=== PATIENT | male | born 1950 | race Caucasian/White ===

== ENCOUNTER → 2016-10-25 13:20 | Outpatient (CLI) | payer MEDICARE, OTHER ==
[2016-10-25 13:58] LABS: INR 2.47 (0.85-1.17); PROTIME 26.9 SECONDS (11.6-15.0)
== END | disposition home or self-care (01) ==
LOC: D.LAB 10:15
PROVIDERS: Family Medicine
DX: I48.91 Unspecified atrial fibrillation (principal); I10 Essential (primary) hypertension

== ENCOUNTER → 2016-12-18 11:15 | Outpatient (CLI) | payer MEDICARE, OTHER ==
[2016-12-18 12:03] LABS: INR 2.1 (0.85-1.17); PROTIME 23.6 SECONDS (11.6-15.0)
== END | disposition home or self-care (01) ==
LOC: D.LAB 11:15 → D.US 16:00
PROVIDERS: Family Medicine
DX: R60.0 Localized edema (principal); M79.604 Pain in right leg; I82.409 Acute embolism and thrombosis of unspecified deep veins of unspecified lower extremity

== ENCOUNTER → 2018-03-20 09:57 | Outpatient (CLI) | payer MEDICARE, OTHER ==
[2018-03-20 11:08] LABS: HEMATOCRIT 42.3 % (42.0-54.0); HEMOGLOBIN 14.7 g/dL (13.5-17.5); MCH 30.9 pg (26.0-34.0); MCHC 34.8 g/dL (31.0-37.0); MCV 88.9 fL (80.0-100.0); MEAN PLATELET VOLUME 11.2 fL (7.4-10.4); PLATELET COUNT 111 10x3/uL (130-400); RBC 4.76 10x6/uL (4.20-6.10); RDW 14.6 % (11.5-14.5); WBC 4.6 10x3/uL (4.8-10.8)
[2018-03-20 11:27] LABS: INR 2.59 (0.85-1.17); PROTIME 27.1 SECONDS (11.6-15.0)
[2018-03-20 11:35] LABS: ANION GAP 9.8 mmol/L (8-16); BILIRUBIN - TOTAL 0.95 mg/dL (0.2-1.3); CALCIUM 9.8 mg/dL (8.5-10.1); CARBON DIOXIDE 29.9 mmol/L (21.0-32.0); CHOL - HDL RATIO 5.7 ratio (2.3-4.9); CREATININE - SERUM 1.3 mg/dL (0.6-1.3); LDL-HDL RATIO 3.9 ratio (1.5-3.5); POTASSIUM - SERUM 3.7 mmol/L (3.5-5.1); PROTEIN - SERUM 6.6 g/dL (6.4-8.2); THYROID STIMULATING HORMONE 0.25 uIU/mL (0.36-3.74)
[2018-03-20 11:51] LABS: APPEARANCE CLEAR (CLEAR); BILIRUBIN NEGATIVE (NEGATIVE); COLOR YELLOW (YELLOW); GLUCOSE NEGATIVE (NEGATIVE); KETONE NEGATIVE (NEGATIVE); NITRITE NEGATIVE (NEGATIVE); PROTEIN NEGATIVE (NEGATIVE)
[2018-03-20 11:52] LABS: BACTERIA FEW /hpf (NONE SEEN); EPITHELIAL CELLS OCC /hpf (0-5); MUCUS <1+ /lpf (NONE SEEN); RED CELLS - URINE 0-5 /hpf (0-5)
[2018-03-20 12:57] LABS: EOSINOPHILS 2 % (0-7); LYMPHOCYTES 48 % (15-50); MONOCYTES 8 % (2-11); NEUTROPHILS 41 % (40-80); PLATELET ESTIMATE DECREASED
== END | disposition home or self-care (01) ==
LOC: D.RAD 08:00 → D.LAB 09:57 → D.RAD 09:57
PROVIDERS: Family Medicine
DX: J44.9 Chronic obstructive pulmonary disease, unspecified (principal); F17.200 Nicotine dependence, unspecified, uncomplicated; I10 Essential (primary) hypertension

== ENCOUNTER 2019-02-13 23:34 | Emergency (ER) | payer MEDICARE, OTHER ==
[2019-02-13 23:52] VITALS: BMI 36.6
[2019-02-13] MEDS ORDERED: COUMADIN7.5 MG PO (23:54)
[2019-02-13] MEDS ORDERED: DIOVAN320 MG PO (23:55)
[2019-02-14 01:20] VITALS: BP 188/112
[2019-04-30 11:24] VITALS: BMI 38.6
== END 2019-02-14 01:35 | disposition home or self-care (01) ==
LOC: D.ER 23:34
DX: M70.21 Olecranon bursitis, right elbow (principal); Y93.89 Activity, other specified

== ENCOUNTER 2019-03-04 23:16 | Inpatient (IN) | payer MEDICARE, OTHER ==
[~2019-03-04] VITALS: Ht 193 cm; Wt 140.6 kg
[~2019-03-04 23:16] MED LIST: COUMADIN7.5 MG PO; DIOVAN320 MG PO
[2019-03-05 00:34] LABS: BASOPHILS 0.1 % (0-2); EOSINOPHILS 0 % (0-7); HEMATOCRIT 46.1 % (42.0-54.0); HEMOGLOBIN 16.3 g/dL (13.5-17.5); IMMATURE GRANULOCYTES 0.3 % (0-5); LYMPHOCYTES 6.8 % (15-50); MCH 31.5 pg (26.0-34.0); MCHC 35.4 g/dL (31.0-37.0); MEAN PLATELET VOLUME 11.4 fL (7.4-10.4); MONOCYTES 6.9 % (2-11); NEUTROPHILS 85.9 % (40-80); PLATELET COUNT 101 10x3/uL (130-400); RBC 5.18 10x6/uL (4.20-6.10); RDW 15.1 % (11.5-14.5); WBC 11.5 10x3/uL (4.8-10.8)
[2019-03-05 00:43] LABS: ANION GAP 15.1 mmol/L (8-16); BILIRUBIN - TOTAL 1.2 mg/dL (0.2-1.3); CALCIUM 8.3 mg/dL (8.5-10.1); CARBON DIOXIDE 25.2 mmol/L (21.0-32.0); CREATININE - SERUM 3.7 mg/dL (0.6-1.3); POTASSIUM - SERUM 3.3 mmol/L (3.5-5.1); PROTEIN - SERUM 6.8 g/dL (6.4-8.2)
[2019-03-05 00:53] VITALS: BP 107/63
[2019-03-05 01:00] LABS: TROPONIN-I 0.188 ng/mL (0.000-0.060)
[2019-03-05 02:27] VITALS: BP 110/52
[2019-03-05] MEDS ORDERED: AMBIEN10 MG PO (04:35)
[2019-03-05] MEDS ORDERED: ANORO ELLIPTA1 EACH INH (04:36)
[2019-03-05] MEDS ORDERED: LOPRESSOR25 MG PO (04:37)
--- NOTE | 2019-03-05 04:45 | NUR ---
RECEIVED FROM ER VIA [facility].ALERT,ORIENTED.COMPLAINTS OF DIAHRREA.IV TO RAC INTACT WITHOUT REDNESSS OR EDEMA NOTED. ORIENTED TO ROOM. CL IN REACH. AT BEDSIDE.
--- NOTE | 2019-03-05 08:14 | NUR ---
I have reviewed this patient and I concur with the Shift Assessment completed by the Licensed Practical Nurse today this shift.
[2019-03-05 08:29] VITALS: BP 124/57
--- NOTE | 2019-03-05 09:51 | NUR ---
PT DC X2 IV THIS AM WITH TIP INTACT. CONTINUES TO GET UP OUT OF BED. FALL PRECAUTIONS IN PLACE. CONFUSED. NO S/S OF ACUTE DISTRESS. CL IN PLACE.
--- NOTE | 2019-03-05 10:16 | NUR ---
CALLED FOR TELE. NO TELE PER [facility]. "YOU ARE 4TH IN LINE". CALLED DR BISHOP ABOUT PT CONTINUE TO GET OOB AND PULLED OUT IV X 2. BUN AND CREATNINE ELEVATED. ANURIA. IN ER PT A FIB WITH RVR. CARDIOLOGY AND RENAL CONSULT. TO FOR IMODIUM AND VANC. ECHO TO BE DONE. TRANSFER PT TO PCU SOON BED IS OPEN. CALLED AND SPOKE WITH ROGE CHAPPELL.
[2019-03-05 12:13] VITALS: BP 124/57; BMI 37.8
[2019-03-05 13:30] VITALS: Ht 193 cm; Wt 140.6 kg
[2019-03-05 16:32] VITALS: BP 126/58
[2019-03-05 17:47] LABS: ANION GAP 13.9 mmol/L (8-16); CALCIUM 7.5 mg/dL (8.5-10.1); CARBON DIOXIDE 23.6 mmol/L (21.0-32.0); POTASSIUM - SERUM 3.5 mmol/L (3.5-5.1)
[2019-03-05 17:55] LABS: CREATININE - SERUM 4.7 mg/dL (0.6-1.3)
--- NOTE | 2019-03-05 19:38 | NUR ---
PT RESTING IN BED. AT BEDSIDE NO S/S OF ACUTE DISTRESS. CL IN PLACE.
--- NOTE | 2019-03-05 21:36 | NUR ---
LYING QUEITLY NO DISTRESS NOTED. RESP UNLABORED. IV INFUSING TO RFA WITHOUT REDNESS OR EDEMA NOTED. CL IN REACH
[2019-03-05 21:41] VITALS: BP 118/58
--- NOTE | 2019-03-06 00:26 | NUR ---
I have reviewed this patient and I concur with the Shift Assessment completed by the Licensed Practical Nurse today this shift.
[2019-03-06 01:15] VITALS: BP 112/61
[2019-03-06 04:51] VITALS: BP 114/81
[2019-03-06 05:17] LABS: ALBUMIN 2.7 g/dL (3.4-5.0); ANION GAP 15.6 mmol/L (8-16); BILIRUBIN - TOTAL 0.83 mg/dL (0.2-1.3); CALCIUM 7.2 mg/dL (8.5-10.1); CARBON DIOXIDE 21.6 mmol/L (21.0-32.0); CHOL - HDL RATIO 5.4 ratio (2.3-4.9); CREATININE - SERUM 4.3 mg/dL (0.6-1.3); LDL-HDL RATIO 3.4 ratio (1.5-3.5); MAGNESIUM - SERUM 1.1 mg/dL (1.8-2.4); POTASSIUM - SERUM 3.2 mmol/L (3.5-5.1); PROTEIN - SERUM 5.8 g/dL (6.4-8.2); THYROID STIMULATING HORMONE 0.2 uIU/mL (0.36-3.74)
[2019-03-06 05:45] LABS: BASOPHILS 0 % (0-2); EOSINOPHILS 0 % (0-7); HEMATOCRIT 41.6 % (42.0-54.0); HEMOGLOBIN 14.9 g/dL (13.5-17.5); IMMATURE GRANULOCYTES 0.5 % (0-5); LYMPHOCYTES 5.4 % (15-50); MCHC 35.8 g/dL (31.0-37.0); MEAN PLATELET VOLUME 12.3 fL (7.4-10.4); MONOCYTES 14.8 % (2-11); NEUTROPHILS 79.3 % (40-80); RDW 15.1 % (11.5-14.5)
[2019-03-06 05:46] LABS: MCV 86.7 fL (80.0-100.0); PLATELET COUNT 79 10x3/uL (130-400); WBC 6.5 10x3/uL (4.8-10.8)
--- NOTE | 2019-03-06 07:20 | NUR ---
PT RESTING IN BED, ALERT AND ORIENTED. UP AD PRASANNA. NO C/O PAIN. NO S/S OF ACUTE DISTRESS NOTED. PT ON ELECTROLYTE PROTOCOL. PT ON TELEMETRY CONTROLLED AFIB WITH FREQUENT PVC'S, 89. PT POTASSIUM AND MAGNESIUM LOW THIS AM, K+ 3.5 AND MAG 1.1. IV TO LEFT FOREARM, NS INFUSING @ 125ML/HR. SITE PATENT WITHOUT REDNESS OR SWELLING. PT DENIES ANYTHING FURTHER AT THIS TIME. CALL LIGHT IN REACH. WILL CONTINUE TO MONITOR.
[2019-03-06 07:30] LABS: PLATELET ESTIMATE DECREASED
[2019-03-06 10:01] VITALS: BP 120/62
[2019-03-06 12:43] VITALS: BP 112/52
--- NOTE | 2019-03-06 18:04 | NUR ---
PT RESTING IN BED, ALERT AND ORIENTED. NO C/O PAIN. NO S/S OF ACUTE DISTRESS NOTED. AT BEDSIDE. PT DENIES ANYTHING FURTHER AT THIS TIME. CALL LIGHT IN REACH. WILL CONTINUE TO MONITOR.
[2019-03-06 18:10] LABS: POTASSIUM - SERUM 3.5 mmol/L (3.5-5.1)
[2019-03-06 18:12] LABS: MAGNESIUM - SERUM 1.9 mg/dL (1.8-2.4)
--- NOTE | 2019-03-06 18:47 | NUR ---
PT IS WITHOUT NEEDS AT PRESENT. FAMILY AT BEDSIDE.
[2019-03-06 19:09] VITALS: BP 103/53
[2019-03-06 20:00] VITALS: BP 131/66
--- NOTE | 2019-03-06 21:10 | NUR ---
EYES CLOSED RESP EVEN AND UNLABORED. NO DISTRESS NOTED. IV INFUSING TO RFA WIHTOUT REDNESS OR EDEMA NOTED. CL IN REACH
[2019-03-07] VITALS: BP 132/57; BP 139/79
[2019-03-07 04:00] VITALS: BP 137/66
[2019-03-07 04:24] LABS: ALBUMIN 2.7 g/dL (3.4-5.0); ANION GAP 11.7 mmol/L (8-16); BILIRUBIN - TOTAL 0.86 mg/dL (0.2-1.3); CALCIUM 7.4 mg/dL (8.5-10.1); CARBON DIOXIDE 22.8 mmol/L (21.0-32.0); CREATININE - SERUM 3.6 mg/dL (0.6-1.3); MAGNESIUM - SERUM 1.8 mg/dL (1.8-2.4); PHOSPHOROUS 2.9 mg/dL (2.5-4.9); POTASSIUM - SERUM 3.5 mmol/L (3.5-5.1); PROTEIN - SERUM 5.9 g/dL (6.4-8.2)
--- NOTE | 2019-03-07 07:40 | NUR ---
RCVD IN BED, SHOWS NO S/S OF ANY ACUTE DISTRESS. ABLE TO VOICE NEEDS. WILL NOTE ANY CHANGE.
[2019-03-07 08:30] VITALS: BP 128/84
[2019-03-07 10:31] LABS: APPEARANCE CLEAR (CLEAR); BILIRUBIN NEGATIVE (NEGATIVE); COLOR YELLOW (YELLOW); EPITHELIAL CELLS RARE /hpf (0-5); GLUCOSE NEGATIVE (NEGATIVE); KETONE NEGATIVE (NEGATIVE); NITRITE NEGATIVE (NEGATIVE); PROTEIN TRACE mg/dL (NEGATIVE); RED CELLS - URINE OCC /hpf (0-5); SPECIFIC GRAVITY 1.015 (1.005-1.020); UROBILINOGEN NORMAL (NORMAL); WHITE CELLS - URINE OCC /hpf (0-5)
[2019-03-07 12:32] VITALS: BP 99/70
--- NOTE | 2019-03-07 13:12 | NUR ---
Nutrition Follow Up: Chart reviewed. Pt continues on clear liquid diet. Per chart pt with increased amounts of diarrhea. Labs reviewed. Meds noted including Imodium, Questran, Flagyl. Rec advancing VIKA as medically feasible. RD following.
[2019-03-07 16:51] VITALS: BP 100/71
--- NOTE | 2019-03-07 18:37 | NUR ---
PT RESTING IN BED, ALERT AND ORIENTED. AT BEDSIDE. NO C/O PAIN. NO S/S OF ACUTE DISTRESS NOTED. PT DENIES ANYTHING FURTHER AT THIS TIME. CALL LIGHT IN REACH. WILL CONTINUE TO MONITOR.
[2019-03-07 20:00] VITALS: BP 98/45
--- NOTE | 2019-03-07 23:30 | NUR ---
A&O X 4, LUNG SOUNDS CLEAR, BILATERALLY. OCCASIONAL COUGH NOTED, NON-PRODUCTIVE. BOWEL SOUNDS ACTIVE X 4. PT HAVING FREQUENT LOOSE BOWEL MOVEMENTS, WILL CONTINUE TO MONITOR.
[2019-03-08] VITALS: BP 135/80; BP 98/46
--- NOTE | 2019-03-08 03:00 | NUR ---
I have reviewed this patient and I concur with the Shift Assessment completed by the Licensed Practical Nurse today this shift.
[2019-03-08 07:28] LABS: BASOPHILS 0.1 % (0-2); EOSINOPHILS 0.1 % (0-7); HEMATOCRIT 39.7 % (42.0-54.0); HEMOGLOBIN 14.4 g/dL (13.5-17.5); IMMATURE GRANULOCYTES 0.9 % (0-5); LYMPHOCYTES 19.9 % (15-50); MCH 31.2 pg (26.0-34.0); MCHC 36.3 g/dL (31.0-37.0); MCV 86.1 fL (80.0-100.0); MEAN PLATELET VOLUME 11.4 fL (7.4-10.4); MONOCYTES 14.7 % (2-11); NEUTROPHILS 64.3 % (40-80); PLATELET COUNT 85 10x3/uL (130-400); RBC 4.61 10x6/uL (4.20-6.10); RDW 15.1 % (11.5-14.5); WBC 6.9 10x3/uL (4.8-10.8)
[2019-03-08 07:48] LABS: ALBUMIN 2.5 g/dL (3.4-5.0); ANION GAP 15.4 mmol/L (8-16); BILIRUBIN - TOTAL 0.92 mg/dL (0.2-1.3); CALCIUM 7.1 mg/dL (8.5-10.1); CARBON DIOXIDE 18.3 mmol/L (21.0-32.0); CREATININE - SERUM 4.5 mg/dL (0.6-1.3); MAGNESIUM - SERUM 1.7 mg/dL (1.8-2.4); POTASSIUM - SERUM 3.7 mmol/L (3.5-5.1); PROTEIN - SERUM 5.5 g/dL (6.4-8.2)
[2019-03-08 07:55] LABS: PHOSPHOROUS 3.9 mg/dL (2.5-4.9)
[2019-03-08 07:58] LABS: PLATELET ESTIMATE DECREASED
[2019-03-08 08:26] VITALS: BP 99/67
[2019-03-08 09:09] LABS: HEPATITIS C ANTIBODY 0.1 S/CO RAT (0.0-0.9)
[2019-03-08 12:46] VITALS: BP 112/69
--- NOTE | 2019-03-08 13:00 | NUR ---
PT AT BEDSIDE BEING VERY ARGUMENTIVE WITH PT AND SNATCHING HIS GOWN OFF AND TELLING HIM THAT HE NEEDS TO DO THIS AND TO DO THAT. PT STATING "I DONT CARE WHAT YOU SAY Y'ALL SAY I AM NOT FEEING WELL AND I AM NOT GETTING BACK UP." AND C/L REMAIN IN REACH AT BEDSIDE.
[2019-03-08 16:18] LABS: ANION GAP 15.2 mmol/L (8-16); CALCIUM 7.4 mg/dL (8.5-10.1); CARBON DIOXIDE 19.4 mmol/L (21.0-32.0); CREATININE - SERUM 4.9 mg/dL (0.6-1.3); POTASSIUM - SERUM 3.6 mmol/L (3.5-5.1)
--- NOTE | 2019-03-08 16:29 | NUR ---
I have reviewed this patient and I concur with the Shift Assessment completed by the Licensed Practical Nurse today this shift.
--- NOTE | 2019-03-08 16:38 | NUR ---
ATTEMPTED TO RESITE PT IV X2 UNSUCCESSFUL, PT STATED HE JUST WANTS TO BE LEFT ALONE TO SLEEP AT THIS TIME. ADVISED WILL TRY AGAIN LATER, CL IN REACH, BED IN LOWEST POSITION
[2019-03-08 17:52] VITALS: BP 99/65
--- NOTE | 2019-03-08 19:00 | NUR ---
REPORT RECEIVED AND CARE OF PT ASSUMED. UP IN ROOM GOING TO RESTROOM....INCONTINENT OF BM WITH STOOL ON BED PADS, FLOOR AND ALL OVER TOILET. CHANGED ALL BEDDING AND CLEANED FLOOR AND RESTROOM. POSITIONED PT IN BED FOR COMFORT. WILL MONITOR FOR NEEDS.
[2019-03-08 20:00] VITALS: BP 111/63
--- NOTE | 2019-03-08 20:30 | NUR ---
PT'S CALLED DR BISHOP TO REQUEST QUESTRAN TO BE GIVEN MIXED WITH OINTMENT FOR REDNESS ON BOTTOM. ALSO GAVE THE PHONE TO ME TO ASK FOR A PICC LINE OR MIDLINE PT DOES NOT WANT TO BE STUCK ANYMORE TO ATTEMPT TO GET PERIPHERAL IV. ORDER PLACED AND CALLED SCOTT WALL IN ER TO ADVISE OF ORDER FOR ADVANCED VASCULAR ACCESS.
--- NOTE | 2019-03-08 21:04 | NUR ---
HS MEDICATIONS GIVEN. WILL MONITOR FOR NEEDS.
--- NOTE | 2019-03-08 23:50 | NUR ---
CALLED SKINNING MACHINE FEEDER AND [facility] RN / ER CHARGE TO ADVISE THAT PT'S SPOUSE IS VERY UPSET THAT PT DOESN'T HAVE IV ACCESS YET. SKINNING MACHINE FEEDER TO COME AND SPEAK TO HER. VASCULAR ACCESS NURSE SAID THAT SHE IS CHARGE IN ER AT THIS TIME AND NOT ABLE TO COME ASSIST WITH IV ACCESS.
[2019-03-09] VITALS: BP 100/50
--- NOTE | 2019-03-09 00:15 | NUR ---
20 GUAGE PLACED TO RIGHT FA BY SCOTT ESPANA / ICU NURSE. IV FLUIDS RE-STARTED PER ORDER. PLACED ARMBOARD ON RIGHT FA AND WRAPPED WITH KERLEX.
--- NOTE | 2019-03-09 00:30 | NUR ---
SCOTT RICHMOND / DEAF AND HARD OF HEARING TEACHER HERE TALKING WITH SPOUSE.
--- NOTE | 2019-03-09 01:23 | NUR ---
RECEIVED ORDER FROM DR BISHOP TO PLACE PHYSICIAN CONSULT FOR DR BROOKE TO ADDRESS LOW PLATELET COUNT.
[2019-03-09 04:00] VITALS: BP 97/56
[2019-03-09 06:52] LABS: BASOPHILS 0.2 % (0-2); EOSINOPHILS 0 % (0-7); HEMATOCRIT 40.4 % (42.0-54.0); HEMOGLOBIN 14.8 g/dL (13.5-17.5); IMMATURE GRANULOCYTES 0.9 % (0-5); LYMPHOCYTES 15.6 % (15-50); MCH 31.3 pg (26.0-34.0); MCHC 36.6 g/dL (31.0-37.0); MCV 85.4 fL (80.0-100.0); MEAN PLATELET VOLUME 11.5 fL (7.4-10.4); MONOCYTES 5.5 % (2-11); NEUTROPHILS 77.8 % (40-80); PLATELET COUNT 98 10x3/uL (130-400); RBC 4.73 10x6/uL (4.20-6.10); RDW 15.1 % (11.5-14.5); WBC 6.6 10x3/uL (4.8-10.8)
[2019-03-09 06:57] LABS: ALBUMIN 2.6 g/dL (3.4-5.0); ANION GAP 16.7 mmol/L (8-16); BILIRUBIN - TOTAL 1.12 mg/dL (0.2-1.3); CALCIUM 7.3 mg/dL (8.5-10.1); CARBON DIOXIDE 17.1 mmol/L (21.0-32.0); CREATININE - SERUM 4.2 mg/dL (0.6-1.3); MAGNESIUM - SERUM 1.5 mg/dL (1.8-2.4); PHOSPHOROUS 3.2 mg/dL (2.5-4.9); POTASSIUM - SERUM 3.8 mmol/L (3.5-5.1)
[2019-03-09 09:10] VITALS: BP 100/47
--- NOTE | 2019-03-09 09:58 | NUR ---
SPOKE WITH CHRIST FROM [facility] IN REGARDS TO RESULTS FROM STOOL/URINE. NO NEED FOR CONTACT ISOLATION. INSTRUCTED STAFF TO MAINTAIN MEDICAL ASEPSIS. GOOD HAND HYGIENE.
--- NOTE | 2019-03-09 11:43 | NUR ---
PT IS DISORIENTED TO PLACE, TIME, AND SITUATION, LOW GRADE FEVER OF 99.4, HYPOTENSIVE 92/47 TAKEN TWICE, HR 88, POSTITIVE BLOOD CULTURE FOR GRAM NEGATIVE RODS.
[2019-03-09 12:12] VITALS: BP 92/47
[2019-03-09 16:31] VITALS: BP 98/61
--- NOTE | 2019-03-09 19:00 | NUR ---
REPORT RECEIVED AND CARE OF PT ASSUMED. PT LYING IN SUPINE POSITION ARGUING WITH SPOUSE AT THIS TIME....YELLING AND CUSSING. TELEMETRY IN PLACE AND READING CONT A-FIB AT THIS ASSESSMENT. IV TO RIGHT FA PATENT WITH D5W W/ 20 KCL + SODIUM BICARB INFUSING AT 175 ML/HR. BUTTOCKS REDDENED WITH OINTMENT APPLIED. WILL MONITOR FOR NEEDS.
--- NOTE | 2019-03-09 19:55 | NUR ---
HS MEDICATIONS GIVEN. ASSISTED PT UP TO USE RESTROOM. CLEANED RESTROOM PT SPRAYS BM ALL OVER COMMODE AND FLOOR. POSITIONED BACK IN BED FOR COMFORT.
[2019-03-09 20:44] VITALS: BP 114/56
--- NOTE | 2019-03-10 00:23 | NUR ---
ASSISTED PT UP TO USE RESTROOM. REPLACED GOWN PT WALKING AROUND ROOM NAKED. REPLACED ALL TELEMETRY PADS. POSITIONED BACK IN BED FOR COMFORT.
[2019-03-10 01:27] VITALS: BP 134/69
[2019-03-10 04:31] LABS: BASOPHILS 0.1 % (0-2); EOSINOPHILS 0.1 % (0-7); HEMATOCRIT 36.2 % (42.0-54.0); HEMOGLOBIN 13.5 g/dL (13.5-17.5); IMMATURE GRANULOCYTES 0.6 % (0-5); LYMPHOCYTES 10.4 % (15-50); MCHC 37.3 g/dL (31.0-37.0); MEAN PLATELET VOLUME 11.3 fL (7.4-10.4); MONOCYTES 10.8 % (2-11); PLATELET COUNT 102 10x3/uL (130-400); RBC 4.36 10x6/uL (4.20-6.10); RDW 14.7 % (11.5-14.5)
[2019-03-10 04:34] LABS: WBC 11.5 10x3/uL (4.8-10.8)
[2019-03-10 04:39] LABS: INR 2.68 (0.85-1.17); PROTIME 27.8 SECONDS (11.6-15.0)
[2019-03-10 04:50] LABS: ALBUMIN 2.3 g/dL (3.4-5.0); BILIRUBIN - TOTAL 2.6 mg/dL (0.2-1.3); MAGNESIUM - SERUM 1.2 mg/dL (1.8-2.4); PROTEIN - SERUM 5.3 g/dL (6.4-8.2)
[2019-03-10 04:51] LABS: ANION GAP 13.6 mmol/L (8-16); CARBON DIOXIDE 21.5 mmol/L (21.0-32.0); CREATININE - SERUM 2.8 mg/dL (0.6-1.3); PHOSPHOROUS 2.1 mg/dL (2.5-4.9); POTASSIUM - SERUM 3.1 mmol/L (3.5-5.1)
[2019-03-10 04:52] LABS: CALCIUM 6.7 mg/dL (8.5-10.1)
--- NOTE | 2019-03-10 05:15 | NUR ---
CRITICAL LAB CALLED: CALCIUM 6.7 ( ALBUMIN 2.3 ) MAKING CORRECTED CALCIUM 8.1 THIS AM.
[2019-03-10 05:42] VITALS: BP 130/85
--- NOTE | 2019-03-10 06:31 | NUR ---
POTASSIUM LEVEL 3.1 REQUIRING COVERAGE WITH 40 MEQ PO PER THE ELECTROLYTE PROTOCOL. WILL RE-CHECK IN 4 HOURS. PHOS LEVEL 2.1 REQUIRING COVERAGE WITH 1 PKT PHOSPHORUS AND REPEAT EVERY 4 HOURS FOR 3 DOSES....REPORTED GIVEN TO DAY SHIFT RN. MAG LEVEL 1.2 REQUIRING COVERAGE WITH 400 MG PO AND REPEAT Q4HRS X4 DOSES TOTAL....REPORTED TO DAY SHIFT RN.
--- NOTE | 2019-03-10 07:25 | NUR ---
PT SITTING UP IN CHAIR AT BEDSIDE. RESTLESS AND AGITATED. PT REPORTS PAIN IN BACK AND UNABLE TO GET COMFORTABLE IN BED. FOAM MATTRESS APPLIED TO BED TO ASSIST WITH COMFORT. PT REPORTS PAIN 7/10 AT THIS TIME. IV TO RIGHT FOREARM WITH D5W W/20KCL SODIUM BICAR @ 175ML/HR INFUSING VIA PUMP. TELEMETRY IN PLACE. PT CONTINUES TO VOICE EPISODES OF DIARRHEA. FAMILY AT BEDSIDE. DENIES FURTHER NEEDS AT THIS TIME. CL WITHIN REACH. ENCOURAGED TO CALL WITH NEEDS. CONTINUE POC
--- NOTE | 2019-03-10 08:26 | NUR ---
PT CONTINUES TO PRESENT IRRITABLE AND AGITATED, REPORTING PAIN 7/10 AND INABILITY TO GET COMFORTABLE. ULTRAM ADMINISTERED AT THIS TIME.
[2019-03-10 08:43] VITALS: BP 132/73
--- NOTE | 2019-03-10 09:15 | NUR ---
PT RESTING IN BED. LESSENED IRRITABILITY NOTED. HE REPORTS "I DON'T WANT TO BRAG OR TALK ABOUT BUT I HAVE LAID IN ONE SPOT RIGHT NOW FOR LONGER THAN 5 MINUTES." HE THEN RATES PAIN AT THIS TIME 01/03. DENIES FURTHER NEEDS AT THIS TIME. ENCOURAGED TO CALL WITH NEEDS.
--- NOTE | 2019-03-10 10:47 | NUR ---
PT SITTING UP ON SIDE OF BED WITH FAMILY AT BEDSIDE. PT IS RESTLESS WITH COMPLAINTS OF BACK PAIN AND INABILITY OF GETTING COMFORTABLE IN BED. EDUCATED PT REGARDING PAIN MEDICATION ORDER. PT VOICES UNDERSTANDING. DENIES FURTHER NEEDS AT THIS TIME. CL WITHIN REACH. ENCOURAGED TO CALL WITH NEEDS.
--- NOTE | 2019-03-10 14:11 | MORECARE ---
CASE MANAGEMENT DISCHARGE SUMMARY PATIENT: EDGARDO ANTHONY UNIT: [id number] ADM DATE: 03/05/19 AGE: 68 : 46 SEX: M ROOM/BED: D.2208 AUTHOR: KAREEN RICHARD PHYSICIAN: REFERRING PHYSICIAN: MICHELE BISHOP MD DATE OF SERVICE: 03/10/19 Discharge Plan Patient Name: EDGARDO ANTHONY [facility] : 1950 Planned Disposition: Anticipated Discharge Date: Discharge Date: Expected LOS: Initial Reviewer: [email or web address] Initial Review Date: 03/05/2019 Generated: 03/10/19 3:11 pm Comments DCP- Discharge Planning Updated by [email or web address]: Carolyn Castillo on 03/10/19 1:[address] attempted to see patient, family at bedside asked if I could come back. Patient was sleeping and family did not want me to wake him. CM will attempt to see at a later time Patient Name: EDGARDO ANTHONY Page [id number] at 1411 All edits/amendments must be made on the electronic document DICTATION DATE: 03/10/191409 DOOR CLOSER MECHANIC: ROSALINDA 03/10/191409 RPT#: [id number] DC DATE: STATUS: ADM IN [facility] [address] [place] [address] END OF REPORT
[2019-03-10 17:15] VITALS: BP 110/55
--- NOTE | 2019-03-10 18:01 | NUR ---
PATIENT FAMILY REQUESTING SOME CALMOSEPTINE OR MEDICATED OINTMENT FOR HIS BUTTOCK AND COCCYX.
--- NOTE | 2019-03-10 18:38 | CN ---
PATIENT NAME:EDGARDO ANTHONY MEDICAL RECORD: [id number] : 46 LOCATION:D.MS [id number] ADMIT DATE: 03/05/19 ACCOUNT: [id number] CONSULTING PHYSICIAN: BRENDA JETT MD REFERRING PHYSICIAN: MICHELE BISHOP MD DATE OF CONSULTATION: 03/05/2019 DIAGNOSES: 1. Atrial fibrillation with rapid ventricular response. 2. Chronic atrial fibrillation. 3. Hypertension. 4. Nausea and vomiting. 5. Acute renal failure. HISTORY OF PRESENT ILLNESS: Mr. Anthony comes in with nausea, vomiting, GI symptomatology, found to have efxnp-zz-trwjwji renal insufficiency. He is in atrial fibrillation. His Lopressor has been on hold. His heart rate is in the 110 range. The atrial fibrillation is chronic. He is as well on Diovan for blood pressure. His blood pressure has been running in the 100 range. PHYSICAL EXAMINATION: GENERAL APPEARANCE: Well-nourished, well-developed, appears stated age. Level of distress, comfortable. PSYCHIATRIC: Mental status, alert, normal affect. Orientation, oriented to time, place and person. EYES: Lids and conjunctiva, noninjected. No discharge, no pallor. ENT: Lips, teeth, gums, normal dentition. Oropharynx, no cyanosis, no pallor. NECK: Carotid arteries, bilateral normal upstroke, no bruits, no thrills. JUGULAR VEINS: No jugular venous pressure or distention. CERVICAL LYMPH NODES: Nontender, nonenlarged. THYROID: Not enlarged. Nontender. No nodules. LUNGS: Respiratory effort, unlabored. CHEST: Normal curvature. No thoracic deformity. No chest wall tenderness. Percussion, resonant. Auscultation, clear. No wheezes, no rales, no rhonchi. CARDIOVASCULAR: Precordial exam, nondisplaced. No heaves or pericardial thrills. Rate and rhythm, regular. Heart sounds, normal S1, normal S2. No S3, no gallop, no rub. Systolic murmur, not heard. Diastolic murmur, not heard. EXTREMITIES: No cyanosis, no edema. Peripheral pulses, full and equal in all extremities, except as noted. No bruits appreciated. ABDOMEN: Soft, nondistended. Normal aorta. No bruit. Nontender. No masses. Liver, nontender, no hepatomegaly. Spleen, nontender, no splenomegaly. MUSCULOSKELETAL: No joint tenderness. No joint swelling. No erythema. NEUROLOGICAL: Normal gait, normal strength, normal tone. SKIN: Warm and dry. OVERALL IMPRESSION: Atrial fibrillation, this is chronic. We would restart his metoprolol. He is being hydrated. Hopefully, his BUN and creatinine will return to normal with hydration and metoprolol can be continued at the same dose. If he becomes bradycardic, we will hold the metoprolol and/or cut the dose back. At this time, no other cardiac workup or treatment is necessary. TRANSINT:[id number] Voice Confirmation ID: [id number] DOCUMENT ID: [id number] CONSULT REPORT [id number] EDGARDO ANTHONY, BRENDA GARRETT at 1838 CC: [id number] DICTATION DATE: 03/05/19 1149 LOAN MANAGER: 03/05/19 1249 ADM IN [facility] [place] [id number] [place] [address]
--- NOTE | 2019-03-10 18:38 | EC ---
PATIENT:EDGARDO ANTHONY DATE OF SERVICE: 03/05/19 SEX: M MEDICAL RECORD: [id number] DATE OF : [birth year] LOCATION:D.MS [place] AGE OF PATIENT: 68 ADMISSION DATE: 03/05/19 REFERRING PHYSICIAN: INTERPRETING PHYSICIAN: BRENDA CATHERINE MD ECHOCARDIOGRAM REPORT ECHO CHARGES 4 ECHO COMPLETE Date: 03/05/19 CLINICAL DIAGNOSIS: AFIB WITH RVR ECHOCARDIOGRAPHIC MEASUREMENTS (adult normal given) AC root (d.<3.7cm) 2.9 cm LV Septum d (<1.2 cm> 1.7 cm Valve Excursion 1.5 cm LV Septum (systole) 1.9 cm Left Atria (s.<4.0cm> 5.1 cm LVPW d(<1.2cm) 1.7 cm RV (d.<2.3cm) 2.1 cm LVPW (sytole) 1.8 cm LV diastole(<5.6CM) 4.2 cm MV E-F(>70mm/sec) cm LV systole 2.8 cm LVOT Diameter 2.1 cm MV exc.(>10mm) 1.2 cm Est.ejection fraction (50-75%) % DOPPLER: LVIT cm/sec A 40.0 cm/sec E 57.0 cm/sec LA cm/sec RVSP 49 mmHg LVOT 94 cm/sec AOP1/2T m/s Asc. Ao 128 cm/sec RVOT 97 cm/sec RA cm/sec PA 126 cm/sec AV Gradient Peak 6.59 mmHg AV Mean 3.71 mmHg AV Area 2.4 cm MV Gradient Peak 4.30 mmHg MV Mean 1.61 mmHg MV Area cm COMMENTS: Heel Seat Sander: Denise WORRELL Quality Rep: 1 Dr. Catherine TAPE# PACS Pericardial Effusion Y DATE OF SERVICE: 03/05/2019 FINDINGS: 1. Left ventricular chamber size is within normal limits. Left ventricular systolic function is normal. Overall ejection fraction is estimated at 55%. 2. Left atrium is enlarged at 5.1 cm. Right atrium and right ventricular chamber sizes are as well moderately dilated. 3. Valvular structures have normal structure and motion. 4. Doppler interrogation reveals [id number] tricuspid regurgitation. No other valvular insufficiency or stenosis. Pulmonary systolic pressure is ECHOCARDIOGRAM REPORT [id number] ANTHONY,EDWARD R estimated at 49 mmHg. 5. No evidence of pericardial effusion or left ventricular thrombus. 6. The patient is in atrial fibrillation during the study. TRANSINT:[id number] Voice Confirmation ID: [id number] DOCUMENT ID: [id number] BRENDA CATHERINE MD at 1838 CC: [id number] DICTATION DATE: 03/05/191710 SUBSTATION SUPERVISOR: 03/05/191911 ADM IN [facility] [address] [id number]
[2019-03-10 21:57] VITALS: BP 109/65
--- NOTE | 2019-03-10 23:00 | NUR ---
PTs BOTTOM IS RED AND RAW. BUTT PASTE APPLIED BECAUSE CALMOSEPTINE RUBBED OFF FROM PTs TOSSING AND TURNING. BRIEF REMOVED AND ENCOURAGED TO REFRAIN FROM USING. WILL CONTINUE TO MONITOR.
--- NOTE | 2019-03-11 04:42 | NUR ---
I have reviewed this patient and I concur with the Shift Assessment completed by the Licensed Practical Nurse today this shift.
[2019-03-11 04:45] VITALS: BP 110/85
[2019-03-11 07:26] LABS: ALBUMIN 2.4 g/dL (3.4-5.0); BILIRUBIN - TOTAL 4.28 mg/dL (0.2-1.3); CALCIUM 7.3 mg/dL (8.5-10.1); CREATININE - SERUM 2.4 mg/dL (0.6-1.3); MAGNESIUM - SERUM 1.1 mg/dL (1.8-2.4); PROTEIN - SERUM 5.4 g/dL (6.4-8.2)
[2019-03-11 07:29] LABS: ANION GAP 11.7 mmol/L (8-16); POTASSIUM - SERUM 3.7 mmol/L (3.5-5.1)
--- NOTE | 2019-03-11 07:30 | NUR ---
PT RESTLESS, GOING FROM LYING TO SITTING POSITION REPEATEDLY. PT REPORTS PAIN IN LOWER BACK 8/10 AT THIS TIME. DISCUSSED UPCOMING MED ADMINISTRATION OF ULTRAM. PT AND FAMILY STATE THAT THIS MEDICATION DOES NOT HELP PAIN. FAMILY STATES "HE NEEDS SOMETHING TO HELP HIM SLEEP." EDUCATED PT AND FAMILY REGARDING MEDICATIONS. THEY CONTINUED ASKING ABOUT VARIOUS MEDICATIONS THAT COULD BE PRESCRIBED SUCH VALIUM OR BENADRYL. INFORMED PT AND FAMILY THAT I WOULD CONTACT MD, HOWEVER THEY TO NEEDED TO BE AVAILABLE WHEN MD ROUNDED TO ANSWER QUESTIONS REGARDING PT CURRENT HEALTH STATUS.
[2019-03-11 07:37] LABS: HEMATOCRIT 35.6 % (42.0-54.0); HEMOGLOBIN 13.2 g/dL (13.5-17.5); MCH 30.8 pg (26.0-34.0); MCHC 37.1 g/dL (31.0-37.0); MCV 83.2 fL (80.0-100.0); MEAN PLATELET VOLUME 11.7 fL (7.4-10.4); PLATELET COUNT 154 10x3/uL (130-400); RBC 4.28 10x6/uL (4.20-6.10); RDW 14.9 % (11.5-14.5); WBC 25.2 10x3/uL (4.8-10.8)
--- NOTE | 2019-03-11 09:00 | NUR ---
CONTACTED DR. BISHOP REGARDING PT AND FAMILIES REQUEST FOR DIFFERENT PAIN MEDICATION, BENADRYL OR VALIUM. DISCUSSED CONTINUED PAIN AND PT NOT SLEEPING LAST NIGHT. DR. BISHOP STATED TO CONTINUE ULTRAM ORDERED AND NOTIFY FAMILY AND PT THAT HE WOULD BE ROUNDING THIS AM.
[2019-03-11 09:08] VITALS: BP 126/70
[2019-03-11 09:28] LABS: LYMPHOCYTES 6 % (15-50); MONOCYTES 6 % (2-11); NEUTROPHILS 86 % (40-80); PLATELET ESTIMATE NORMAL; ROULEAUX OCC
--- NOTE | 2019-03-11 11:24 | NUR ---
Redness/excoriation noted on bottom and perineal area related to frequent bouts of diarrhea. Calmoseptine cream is being applied twice/day and as needed with personal care. Family is wanting an air overlay mattress. I do not recommend this due to the pt being a high risk for falls. He is agitated, restless and at times confused. An egg crate has been placed on the bed instead. Will continue monitoring.
--- NOTE | 2019-03-11 12:51 | MORECARE ---
CASE MANAGEMENT DISCHARGE SUMMARY PATIENT: EDGARDO ANTHONY UNIT: [id number] ADM DATE: 03/05/19 AGE: 68 : 46 SEX: M ROOM/BED: D.2208 AUTHOR: HILARYDOC PHYSICIAN: REFERRING PHYSICIAN: MICHELE BISHOP MD DATE OF SERVICE: 03/11/19 Discharge Plan Patient Name: EDGARDO ANTHONY Facility: [facility]:[place] : 1950 Planned Disposition: Home or Self Care Anticipated Discharge Date: Discharge Date: Expected LOS: Initial Reviewer: [email or web address] Initial Review Date: 03/05/2019 Generated: 03/11/19 1:51 pm Comments DCP- Discharge Planning Updated by [email or web address]: Carolyn Castillo on 03/11/19 11:[address] Patient Name: EDGARDO ANTHONY Admission Status: ER Accout number: [id number] Admission Date: 03-05-2019 : 1950 Admission Diagnosis:ACUTE KIDNEY FAILURE, UNSPECIFIED Attending: MICHELE BISHOP Current LOS: 6 Anticipated DC Date: Planned Disposition: Home or Self Care Primary Insurance: MEDICARE A & B Discharge Planning Comments: CM met with patient/daughter to complete initial dc planning assessment. CM educated patient on the CM role and verbal consent given by patient to speak with his daughter to complete assessment. Patient lives at home with his where he is independent with his care. At discharge patient plans to return home and feels this is a safe discharge. CM discussed availability of home health, rehab services, and medical equipment. The daughter is unsure if he will need any DME or home health. Patient denied known discharge needs at this time. CM will continue to follow and will assist as needed with dc plans/needs. Compliance Project Manager: Carolyn Castillo DCP- Discharge Planning Updated by [email or web address]: Carolyn Castillo on 03/10/19 1:[address] attempted to see patient, family at bedside asked if I could come back. Patient was sleeping and family did not want me to wake him. CM will attempt to see at a later time DCPIA - Discharge Planning Initial Assessment Updated by [id number]: Carolyn Castillo on 03/11/19 12:47 pm * Is the patient Alert and Oriented? Yes * How many steps to enter\exit or inside your home? * PCP Adi * Pharmacy [facility] * Preadmission Environment Home with Family * ADLs Independent * Equipment None * List name and contact numbers for known caregivers / representatives who currently or will assist patient after discharge: Eleonora Anthony () [phone] * Verbal permission to speak to the caregivers and representatives has been obtained from the patient. N/A * Community resources currently utilized None * Can the patient safely return to the preadmission environment? Yes * Has this patient been hospitalized within the prior 30 days at any hospital? No Last DP export: 03/10/19 1:11 p Patient Name: EDGARDO ANTHONY Page [id number] at 1251 All edits/amendments must be made on the electronic document DICTATION DATE: 03/11/19 125 RESEARCH WORKER KITCHEN: ROSALINDA 03/11/19 1250 RPT#: [id number] DC DATE: STATUS: ADM IN [facility] [address] [place] [address] END OF REPORT
[2019-03-11 15:10] LABS: SPE - ALBUMIN 2.4 g/dL (2.9-4.4); SPE - ALPHA-1 GLOBULIN 0.2 g/dL (0.0-0.4); SPE - ALPHA-2 GLOBULIN 0.6 g/dL (0.4-1.0); SPE - BETA GLOBULIN 0.6 g/dL (0.7-1.3); SPE - GAMMA GLOBULIN 0.9 g/dL (0.4-1.8); SPE - M-SPIKE Not Observed g/dL (Not Observed); SPE - TOTAL PROTEIN 4.7 g/dL (6.0-8.5)
--- NOTE | 2019-03-11 15:11 | NUR ---
NUTRITION F/U CHART REVIEWED. PT SLEEPING. NO INTAKE TODAYS MEALS. WILL CONTINUE TO PROVIDE DIET, MONITOR PO INTAKE. ASSIST WITH NUTRITION SUPPORT IF NEEDED. RD FOLLOWING
[2019-03-11 17:04] VITALS: BP 154/76
[2019-03-11 21:56] VITALS: BP 122/57
[2019-03-12 01:32] VITALS: BP 154/50
--- NOTE | 2019-03-12 03:00 | NUR ---
PT PULLED OUT IV. CATHETER INTACT. REFUSED NEW IV. PT IS CURSING AND MUMBLING ABOUT HAVING TO GO HOME. PT LAID DOWN, STATES HE WANTS PAIN MEDICINE TO SLEEP. INFORMED PT HE HAS HIS NIGHTTIME DOSE AND NEXT PAIN DOSE IS AT 9AM. DENIES FURTHER NEEDS, WILL CONTINUE TO ONITOR.
--- NOTE | 2019-03-12 03:30 | NUR ---
I have reviewed this patient and I concur with the Shift Assessment completed by the Licensed Practical Nurse today this shift.
[2019-03-12 05:32] LABS: BASOPHILS 0.1 % (0-2); EOSINOPHILS 0.1 % (0-7); HEMOGLOBIN 12.9 g/dL (13.5-17.5); IMMATURE GRANULOCYTES 0.6 % (0-5); LYMPHOCYTES 8.2 % (15-50); MCH 31.1 pg (26.0-34.0); MCHC 36.9 g/dL (31.0-37.0); MCV 84.3 fL (80.0-100.0); MEAN PLATELET VOLUME 10.9 fL (7.4-10.4); MONOCYTES 11.5 % (2-11); NEUTROPHILS 79.5 % (40-80); PLATELET COUNT 173 10x3/uL (130-400); RBC 4.15 10x6/uL (4.20-6.10); RDW 14.9 % (11.5-14.5)
[2019-03-12 06:11] LABS: ALBUMIN 2.3 g/dL (3.4-5.0); ANION GAP 9.8 mmol/L (8-16); BILIRUBIN - TOTAL 3.47 mg/dL (0.2-1.3); CARBON DIOXIDE 30.9 mmol/L (21.0-32.0); CREATININE - SERUM 1.9 mg/dL (0.6-1.3); MAGNESIUM - SERUM 1.2 mg/dL (1.8-2.4); PHOSPHOROUS 1.8 mg/dL (2.5-4.9); POTASSIUM - SERUM 3.7 mmol/L (3.5-5.1); PROTEIN - SERUM 5.5 g/dL (6.4-8.2)
[2019-03-12 08:44] VITALS: BP 120/64
--- NOTE | 2019-03-12 09:33 | NUR ---
PT ALERT X 4. BREATH SOUNDS CLEAR BILAT. TELEMETRY IN PLACE. IV TO RIGHT FOREARM, PATENT, DRESSING CDI. PT REPORTING PAIN OF 6/10, WILL MONITOR. BED LOW, CALL LIGHT IN REACH. NO OTHER NEEDS AT THIS TIME.
[2019-03-12] MEDS ORDERED: LEVAQUIN750 MG PO (09:35)
[2019-03-12] MEDS ORDERED: DOXEPIN HCL10 MG PO (09:37)
[2019-03-12] MEDS ORDERED: FLORAJEN3 CAPS460 MG PO (09:37)
[2019-03-12] MEDS ORDERED: ZOFRAN4 MG PO (09:38)
[2019-03-12] MEDS ORDERED: LOPERAMIDE HCL2 MG PO (09:39)
[2019-03-12] MEDS ORDERED: ULTRAM50 MG PO (09:55)
--- NOTE | 2019-03-12 11:02 | NUR ---
PT IS VOMITING, ZOFRAN GIVEN PER ORDERS.
--- NOTE | 2019-03-12 11:03 | NUR ---
FAMILY REQUESTING TO SPEAK WITH CASE MANAGEMENT ABOUT HOME HEALTH. DR BISHOP OFFERED PT HOME HEALTH SERVICES THIS AM, TO WHICH PT DECLINED. FAMILY DOES NOT FEEL THEY WILL BE ABLE TO PROVIDE ADEQUATE CARE WITHOUT HOME HEALTH SERVICES.
--- NOTE | 2019-03-12 11:30 | MORECARE ---
CASE MANAGEMENT DISCHARGE SUMMARY PATIENT: EDGARDO ANTHONY UNIT: [id number] ADM DATE: 03/05/19 AGE: 68 : 48 SEX: M ROOM/BED: D.2208 AUTHOR: HILARY,DOC PHYSICIAN: REFERRING PHYSICIAN: MICHELE LALA MD DATE OF SERVICE: 03/12/19 Discharge Plan Patient Name: EDGARDO ANTHONY Facility: [facility]:[place] : 1950 Planned Disposition: Home or Self Care Anticipated Discharge Date: Discharge Date: Expected LOS: Initial Reviewer: [email or web address] Initial Review Date: 03/05/2019 Generated: 03/12/19 12:30 pm Comments DCP- Discharge Planning Updated by [email or web address]: Carolyn Castillo on 03/12/19 10:[address] Patient will be discharging home today, patient refuses home health. I spoke with Dr Lala also about home health and he stated that he talked to him about it and he would call if he changed his mind. Refusal form signed and IMM sent over and signed. CM will continue to follow and assist with dc planning as needed. Patient denies any needs at this time. DCP- Discharge Planning Updated by [email or web address]: Carolyn Castillo on 03/11/19 11:[address] Patient Name: EDGARDO ANTHONY Admission Status: ER Accout number: [id number] Admission Date: 03-05-2019 : 1950 Admission Diagnosis:ACUTE KIDNEY FAILURE, UNSPECIFIED Attending: MICHELE LALA Current LOS: 6 Anticipated DC Date: Planned Disposition: Home or Self Care Primary Insurance: MEDICARE A & B Discharge Planning Comments: CM met with patient/daughter to complete initial dc planning assessment. CM educated patient on the CM role and verbal consent given by patient to speak with his daughter to complete assessment. Patient lives at home with his where he is independent with his care. At discharge patient plans to return home and feels this is a safe discharge. CM discussed availability of home health, rehab services, and medical equipment. The daughter is unsure if he will need any DME or home health. Patient denied known discharge needs at this time. CM will continue to follow and will assist as needed with dc plans/needs. Informatics Analyst: Carolyn Castillo DCP- Discharge Planning Updated by [email or web address]: Carolyn Castillo on 03/10/19 1:[address] attempted to see patient, family at bedside asked if I could come back. Patient was sleeping and family did not want me to wake him. CM will attempt to see at a later time DCPIA - Discharge Planning Initial Assessment Updated by [email or web address]: Carolyn Castillo on 03/11/19 12:47 pm * Is the patient Alert and Oriented? Yes * How many steps to enter\exit or inside your home? * PCP Dai * Pharmacy [place] * Preadmission Environment Home with Family * ADLs Independent * Equipment None * List name and contact numbers for known caregivers / representatives who currently or will assist patient after discharge: Eleonora Anthony () [phone] * Verbal permission to speak to the caregivers and representatives has been obtained from the patient. N/A * Community resources currently utilized None * Can the patient safely return to the preadmission environment? Yes * Has this patient been hospitalized within the prior 30 days at any hospital? No Coverage Notice Reviewer: [email or web address] Margaret Castillo Notice Issued Date-Time: 03/12/2019 11:15 Notice Type: IM Discharge Notice Notice Delivered To: Patient Relationship to Patient: Sales Recruiting Coordinator Name: Delivery Method: HAND - Hand Delivered Mona Days: Prior Verbal Notification: Recipient Understood Notice: Yes Recipient Signature: Yes Med Rec Note Co-signed by Attending: Coverage Notice Comment: Reviewer: [id number] Margaret Castillo Notice Issued Date-Time: 03/12/2019 11:15 Notice Type: Patient Choice Letter Notice Delivered To: Patient Relationship to Patient: Sales Recruiting Coordinator Name: Delivery Method: - Mona Days: Prior Verbal Notification: Recipient Understood Notice: Yes Recipient Signature: Yes Med Rec Note Co-signed by Attending: Coverage Notice Comment: refusal of home health Last DP export: 03/11/19 11:51 a Patient Name: EDGARDO ANTHONY Page [id number] at 1130 All edits/amendments must be made on the electronic document DICTATION DATE: 03/12/19 1130 CELL BUILDER: ROSALINDA 03/12/19 1130 RPT#: [id number] DC DATE: STATUS: ADM IN [facility] [address] [place] [address] END OF REPORT
--- NOTE | 2019-03-12 12:34 | NUR ---
DISCHARGE PAPERWORK SIGNED, ALL QUESTIONS ANSWERED. IV TO RIGHT FOREARM DC'D, TIP INTACT. ESCORTED OUT BY WHEELCHAIR.
[2019-03-14 03:07] LABS: PLT ASSOCIATED ANTI-IA/IIA Negative (Negative); PLT ASSOCIATED ANTI-IB/IX Negative (Negative)
[2019-03-14 18:08] LABS: OVA + PARASITE EXAM Final report (())
--- NOTE | 2019-03-17 08:55 | MORECARE ---
CASE MANAGEMENT DISCHARGE SUMMARY PATIENT: EDGARDO ANTHONY UNIT: [id number] ADM DATE: 03/05/19 AGE: 68 : 48 SEX: M ROOM/BED: D.2208 AUTHOR: HILARY,DOC PHYSICIAN: REFERRING PHYSICIAN: MICHELE LALA MD DATE OF SERVICE: 03/17/19 Discharge Plan Patient Name: EDGARDO ANTHONY Facility: [facility]:[place] : 1950 Planned Disposition: Home or Self Care Anticipated Discharge Date: Discharge Date: 03/12/2019 Expected LOS: 0 Initial Reviewer: [email or web address] Initial Review Date: 03/05/2019 Generated: 03/17/19 9:55 am Comments DCP- Discharge Planning Updated by [email or web address]: Carolyn Castillo on 03/12/19 10:[address] Patient will be discharging home today, patient refuses home health. I spoke with Dr Lala also about home health and he stated that he talked to him about it and he would call if he changed his mind. Refusal form signed and IMM sent over and signed. CM will continue to follow and assist with dc planning as needed. Patient denies any needs at this time. DCP- Discharge Planning Updated by [email or web address]: Carolyn Castillo on 03/11/19 11:[address] Patient Name: EDGARDO ANTHONY Admission Status: ER Accout number: [id number] Admission Date: 03-05-2019 : 1950 Admission Diagnosis:ACUTE KIDNEY FAILURE, UNSPECIFIED Attending: MICHELE LALA Current LOS: 6 Anticipated DC Date: Planned Disposition: Home or Self Care Primary Insurance: MEDICARE A & B Discharge Planning Comments: CM met with patient/daughter to complete initial dc planning assessment. CM educated patient on the CM role and verbal consent given by patient to speak with his daughter to complete assessment. Patient lives at home with his where he is independent with his care. At discharge patient plans to return home and feels this is a safe discharge. CM discussed availability of home health, rehab services, and medical equipment. The daughter is unsure if he will need any DME or home health. Patient denied known discharge needs at this time. CM will continue to follow and will assist as needed with dc plans/needs. Supervisor Cytology: Carolyn Castillo DCP- Discharge Planning Updated by [email or web address]: Carolyn Castillo on 03/10/19 1:[address] attempted to see patient, family at bedside asked if I could come back. Patient was sleeping and family did not want me to wake him. CM will attempt to see at a later time DCPIA - Discharge Planning Initial Assessment Updated by [email or web address]: Carolyn Castillo on 03/11/19 12:47 pm * Is the patient Alert and Oriented? Yes * How many steps to enter\exit or inside your home? * PCP Dai * Pharmacy [facility] * Preadmission Environment Home with Family * ADLs Independent * Equipment None * List name and contact numbers for known caregivers / representatives who currently or will assist patient after discharge: Eleonora Anthony () [phone] * Verbal permission to speak to the caregivers and representatives has been obtained from the patient. N/A * Community resources currently utilized None * Can the patient safely return to the preadmission environment? Yes * Has this patient been hospitalized within the prior 30 days at any hospital? No Coverage Notice Reviewer: [id number] Margaret Castillo Notice Issued Date-Time: 03/12/2019 11:15 Notice Type: IM Discharge Notice Notice Delivered To: Patient Relationship to Patient: Sales And In Home Delivery Specialist Name: Delivery Method: HAND - Hand Delivered Mona Days: Prior Verbal Notification: Recipient Understood Notice: Yes Recipient Signature: Yes Med Rec Note Co-signed by Attending: Coverage Notice Comment: Reviewer: [email or web address] Margaret Castillo Notice Issued Date-Time: 03/12/2019 11:15 Notice Type: Patient Choice Letter Notice Delivered To: Patient Relationship to Patient: [employer] Home Delivery Specialist Name: Delivery Method: - Mona Days: Prior Verbal Notification: Recipient Understood Notice: Yes Recipient Signature: Yes Med Rec Note Co-signed by Attending: Coverage Notice Comment: refusal of home health Last DP export: 03/12/19 10:30 a Patient Name: EDGARDO ANTHONY Page [id number] at 0855 All edits/amendments must be made on the electronic document DICTATION DATE: 03/17/19 08 SAFE DEPOSIT CLERK: ROSALINDA 03/17/19 08 RPT#: [id number] DC DATE:03/12/19 STATUS: DIS IN [facility] [address] [place] [address] END OF REPORT
== END 2019-03-12 12:34 | disposition home or self-care (01) | DRG 371 ==
LOC: D.ER 23:16 → D.MS 03-05 03:39
PROVIDERS: Family Medicine; Internal Medicine Nephrology; Legal Medicine; ADMIT Family Medicine; ATTEND Family Medicine
DX: A02.0 Salmonella enteritis (principal); R65.20 Severe sepsis without septic shock; N17.9 Acute kidney failure, unspecified; A02.8 Other specified salmonella infections; A08.0 Rotaviral enteritis; I48.2 Chronic atrial fibrillation; E86.0 Dehydration; R19.7 Diarrhea, unspecified; J43.9 Emphysema, unspecified; E87.6 Hypokalemia

== ENCOUNTER 2019-03-15 20:15 | Inpatient (IN) | payer MEDICARE, OTHER ==
[~2019-03-15] VITALS: Ht 193 cm; Wt 140.6 kg
[~2019-03-15 20:15] MED LIST changes: +AMBIEN10 MG PO; +ANORO ELLIPTA1 EACH INH; +DOXEPIN HCL10 MG PO; +FLORAJEN3 CAPS460 MG PO; +LEVAQUIN750 MG PO; +LOPERAMIDE HCL2 MG PO; +LOPRESSOR25 MG PO; +ULTRAM50 MG PO; +ZOFRAN4 MG PO
--- NOTE | 2019-03-15 20:47 | NUR ---
PT TAKEN TO CT AT THIS TIME.
[2019-03-15 21:15] VITALS: BP 106/53
[2019-03-15 21:24] LABS: APPEARANCE CLEAR (CLEAR); BILIRUBIN NEGATIVE (NEGATIVE); COLOR YELLOW (YELLOW); GLUCOSE NEGATIVE (NEGATIVE); KETONE NEGATIVE (NEGATIVE); NITRITE NEGATIVE (NEGATIVE); PROTEIN NEGATIVE (NEGATIVE); SPECIFIC GRAVITY 1.015 (1.005-1.020); UROBILINOGEN NORMAL (NORMAL)
[2019-03-15 21:34] LABS: BASOPHILS 0.2 % (0-2); EOSINOPHILS 0.4 % (0-7); HEMATOCRIT 35.8 % (42.0-54.0); IMMATURE GRANULOCYTES 2.3 % (0-5); LYMPHOCYTES 11.4 % (15-50); MCH 31.2 pg (26.0-34.0); MCHC 36.3 g/dL (31.0-37.0); MCV 85.9 fL (80.0-100.0); MEAN PLATELET VOLUME 11.1 fL (7.4-10.4); MONOCYTES 16.6 % (2-11); NEUTROPHILS 69.1 % (40-80); PLATELET COUNT 176 10x3/uL (130-400); RBC 4.17 10x6/uL (4.20-6.10); RDW 15.6 % (11.5-14.5); WBC 12.9 10x3/uL (4.8-10.8)
[2019-03-15 21:49] LABS: ALBUMIN 1.7 g/dL (3.4-5.0); ALKALINE PHOSPHATASE 194 U/L (46-116); ALT (SGPT) 91 U/L (10-68); BILIRUBIN - TOTAL 6.11 mg/dL (0.2-1.3); CALC OSMOLALITY 277 mosm/kg (275-300); CALCIUM 7.6 mg/dL (8.5-10.1); CARBON DIOXIDE 33.5 mmol/L (21.0-32.0); CHLORIDE - SERUM 96 mmol/L (98-107); CREATININE - SERUM 2.5 mg/dL (0.6-1.3); GLUCOSE 81 mg/dL (74-106); PROTEIN - SERUM 4.8 g/dL (6.4-8.2); SODIUM 134 mmol/L (136-145); UREA NITROGEN 44 mg/dL (7-18); eGFR NON AFRICAN AMERICAN 27 mL/min (90-120)
[2019-03-15 22:00] LABS: CKMB 2.9 U/L (0.0-3.6); CREATINE KINASE 82 UL (21-232)
[2019-03-15 22:02] LABS: TROPONIN-I < 0.017 ng/mL (0.000-0.060)
[2019-03-15 22:06] LABS: APTT 51.6 SECONDS (22.8-39.4); INR 4.01 (0.85-1.17); PROTIME 38.2 SECONDS (11.6-15.0)
[2019-03-15 22:15] VITALS: BP 122/54
[2019-03-15 22:18] LABS: UDS - AMPHET NEGATIVE QUAL (NEGATIVE); UDS - BARB NEGATIVE QUAL (NEGATIVE); UDS - BENZO NEGATIVE QUAL (NEGATIVE); UDS - COCAINE NEGATIVE QUAL (NEGATIVE); UDS - OPIATE POSITIVE QUAL (NEGATIVE); UDS - PCP NEGATIVE QUAL (NEGATIVE); UDS - THC NEGATIVE QUAL (NEGATIVE)
[2019-03-15 23:15] VITALS: BP 135/93
[2019-03-15 23:37] VITALS: BP 137/105; BMI 37.8
--- NOTE | 2019-03-15 23:38 | NUR ---
RN ADMINISTERED IV NARCAN TO PT PER EDP ORDERS. PT AWAKE AND AGITATED AFTER RECEIVING MED. PT STATES "I AM GOING HOME." PT ASSISTED TO BEDSIDE COMMODE. TRANSDERMAL PATCH FOUND ON PT R SHOULDER. PT SPOUSE AT BEDSIDE AND STATES HE IS NOT RX ANY TRANSDERMAL PATCHES. PT STATES "I DON'T KNOW WHAT THAT IS".
[2019-03-16] VITALS (23 sets, daily range): BP systolic 109–155; BP diastolic 51–111
[2019-03-16 04:32] LABS: BASOPHILS 0.1 % (0-2); EOSINOPHILS 0.3 % (0-7); HEMOGLOBIN 12.6 g/dL (13.5-17.5); IMMATURE GRANULOCYTES 1.7 % (0-5); LYMPHOCYTES 11.1 % (15-50); MCH 30.7 pg (26.0-34.0); MCV 85.2 fL (80.0-100.0); MEAN PLATELET VOLUME 10.3 fL (7.4-10.4); MONOCYTES 13.5 % (2-11); NEUTROPHILS 73.3 % (40-80); PLATELET COUNT 174 10x3/uL (130-400); RBC 4.11 10x6/uL (4.20-6.10); RDW 15.6 % (11.5-14.5); WBC 13.8 10x3/uL (4.8-10.8)
[2019-03-16 04:51] LABS: ALBUMIN 1.7 g/dL (3.4-5.0); ANION GAP 6.3 mmol/L (8-16); BILIRUBIN - TOTAL 6.1 mg/dL (0.2-1.3); CALCIUM 7.6 mg/dL (8.5-10.1); CARBON DIOXIDE 34.7 mmol/L (21.0-32.0); CREATININE - SERUM 2.5 mg/dL (0.6-1.3); PROTEIN - SERUM 4.8 g/dL (6.4-8.2)
--- NOTE | 2019-03-16 07:00 | NUR ---
REC'D EYES CLOSED/ VSS.
--- NOTE | 2019-03-16 07:20 | NUR ---
ASSESSED. CONFUSED TO TIME/SITUATION. BECOMES IRRITATED AND WANTS TO GO HOME. INSTRUCTED ON HOSPITALIZATION AND PLAN.
--- NOTE | 2019-03-16 08:00 | NUR ---
ASSESSED- SEE FLOWSHEET. VSS ON BIPAP.
--- NOTE | 2019-03-16 08:15 | NUR ---
PLACED ON 100% NRB MASK FOR ORAL CARE- QUICKLY DESATS INTO THE 60s. IMPROVES QUICKLY ONCE BACK ON BIPAP.
--- NOTE | 2019-03-16 08:20 | NUR ---
TRAMADOL FOR BACK PAIN.
--- NOTE | 2019-03-16 09:00 | NUR ---
EYES CLOSED/ RESP UNLABORED.
--- NOTE | 2019-03-16 09:45 | NUR ---
DTR VISITS. DR BISHOP ROUNDS- ORDERS REC'D.
--- NOTE | 2019-03-16 10:00 | NUR ---
REPOSITIONED. NEURO UNCHANGED.
--- NOTE | 2019-03-16 10:00 | NUR ---
UP TO CHAIR X 15 MIN- ATTEMPTS TO GO MEGAN TO BED ON OWN- NEEDS ASSIST OF 2 STAFF MEMBERS. INSTRUCTED TO USE CALL LIGHT AND NOT TO GET UP W/O ASSIST.
[2019-03-16 10:50] LABS: MAGNESIUM - SERUM 1.3 mg/dL (1.8-2.4); PHOSPHOROUS 4.2 mg/dL (2.5-4.9)
--- NOTE | 2019-03-16 12:00 | NUR ---
IN AND UPDATED.
--- NOTE | 2019-03-16 12:00 | NUR ---
REASSESSED W/O CHANGES. EACH TIME BIPAP SWAPPED FOR ORAL CARE SHE DESATS BUT IMPROVES QUICKLY.
--- NOTE | 2019-03-16 13:30 | NUR ---
DR MENDIOLA ROUNDS- ORDERS REC'D.
--- NOTE | 2019-03-16 15:03 | NUR ---
REASSESSED. BECOME RESTLESS/AGITATED- BACK HURTING. TRAMADOL GIVEN. OSORIO IV INFILTRATED- RESITED TO RT CHEST.
--- NOTE | 2019-03-16 16:00 | NUR ---
EYES CLOSED/ RESP UNLABORED.
--- NOTE | 2019-03-16 17:30 | NUR ---
CONT EYES CLOSED/RESP UNLABORED.
--- NOTE | 2019-03-16 19:15 | NUR ---
REPORT RECEIVED AND INITIAL ASSESSMENT COMPLETE PT RESTING QUIETLY WITH EYES CLOSED AWAKENS EASILY TO VERBAL STIMULI ORIENTED TO PERSON PLACE AND KNOWS HE IS IN HOSPITAL AT [facility] BUT DOES NOT KNOW WHY HE IS IN ICU. INFORMED AND ORIENTED TO SITUATION. CM INTACT READING CONTROLLED AFIB ALARMS ON AND AUDIBLE WITH CARDIZEM GTT INFUSING. BED LOW POSITION AND CALL LIGHT IN REACH.
--- NOTE | 2019-03-16 20:15 | NUR ---
PTS HERE FOR VISITATION UPDATE GIVEN PTS ASLEEP SHE DOES NOT WANT TO WAKE HIM WANTS HIM TO GET HIS REST. PTS DINNER TRAY IS AT BEDSIDE SHE STATS "YOU CAN JUST LEAVE THAT SUPPER TRAY THERE HE WILL EAT WHEN HE WAKES UP" INFORMED RN WOULD GET HIM SANDWICH TRAY OR SOMETHING WHEN HE WAKES UP. AGAIN STATES WELL YOU CAN REALLY JUST LEAVE IT THERE UNTIL ITS ALMOST BAD AND HE WILL EAT IT HE IS FINE WITH IT SOMETIMES OK WITH WARMING FOOD UP. TRAY WAS REMOVED PT WAS IN HOSPITAL FOR POSSIBLE FOOD [facility] WEEKS AGO. PTS VOICING CONCERNS OF VISITORS AGAIN REITERATES NO VISITORS.
--- NOTE | 2019-03-16 20:50 | NUR ---
FEMALE VISITORS STATES PT IS HER FATHER AND SHE WAS JUST WANTING INFORMATION AND HERE ASKING TO SE PT INFORMED HE WAS SLEEPING AND THAT NO VISITORS ALLOWED PER DEMANDS. ALSO INFORMED COULD NOT GIVE INFORMATION SINCE PTS HAD PLACED [place]SC[place]DE AND STATED NO VISITORS UNDER ANY CIRCUMSTANCES TO VISIT. THIS RN WAS ON UNIT BUT NOT IN PATIENTS ROOM SPEAKING WITH VISITORS PTS COMES IN AND STATED THEY CANT GO IN ROOM PTS WAS INFORMED THEY HAD NOT HAD CONTACT WITH PATIENT AND THAT NO INFORMATION HAD BEEN GIVEN OTHER THAN THAT PTS HAD DEMANDED NO VISITORS. INFORMED ALL PARTIES CASE MANAGEMENT WOULD BE AVAILABLE TOMORROW FOR ASSISTANCE WITH PROBLEMS AND POSSIBLE SOLUTIONS. ALL VISITORS LEFT UNIT
--- NOTE | 2019-03-16 23:00 | NUR ---
REASSESSMENT COMPLETED. PT ALERT STATING HIS BACK WAS HURTING REQUESTING SOMETHING FOR PAIN. SEE EMAR FOR PRN MEDICATION ADMINISTRATION. PT VOICES FRUSTRATION AT BEING IN HOSPITAL AND STATES HE IS "GOING HOME TOMORROW MORNING AND GET ALL THIS MESS STRAIGHTENED OUT", WHEN ASKED WHAT HE WAS SPEAKING ABOUT PT STATED "ALL THIS MESS WITH SOME PATCH OF MEDICINE AND PILLS I TOOK I DONT KNOW WHAT IS GOING ON... I TAKE AMBIEN AND I DONT KNOW WHAT THAT PATCH WAS BUT MY GAVE TO ME". INFORMED PT ALSO OF CASE MANAGEMENT AVAILABILITY IN AM. VSS AT THIS TIME CPOC
[2019-03-17] VITALS (15 sets, daily range): BP systolic 90–146; BP diastolic 61–88; Ht 193 cm; Wt 140.6 kg
--- NOTE | 2019-03-17 | NUR ---
PT RESTING QUIETLY WITH EYES CLOSED PAIN MED EFFECTIVE CPOC
--- NOTE | 2019-03-17 03:00 | NUR ---
REASSESSMENT MADE NO CHANGES PT BECOMES AGITATED IF WOKEN UP. SAYS HE IS GOING HOME TO GET IN HIS BED AND GONNA LEAVE. INFORMED PT WOULD LET HIM REST, WILL GET AM LABS AND XRAYS DONE IN AM
--- NOTE | 2019-03-17 03:15 | NUR ---
PT REFUSING BLOOD DRAW AND XRAY AGITATED AND DOES NOT WANT TO BE BOTHERED.
--- NOTE | 2019-03-17 05:30 | NUR ---
ANSWERED PTS CALL LIGHT HE IS REQUESTING PAIN MED FOR BACK PAIN. SEE EMAR FOR PRN RETINA SUBSPECIALIST.
--- NOTE | 2019-03-17 07:00 | NUR ---
RECEIVED REPORT ON PATIENT AND ASSUMED CARE. PATIENT ALERT AND ORIENTED X 2, EXCEPT TO TIME STATES ITS 1999. REORIENTED. PATIENT IN A-FIB RATE IN 60-70S ON CM, SPO2 - 92% ON 2 LPM 02 VIA NC. BBS - CLEAR ON LEFT BUT WITH EXPIRATORY WHEEZES ON THE RIGHT. IVS INFUSING WITHOUT DIFFICULTY. NS AT 125 CC/HR AND CARDIZEM AT 10 CC/HR. UTILIZING URINAL WITH 300 CCS OF DARK NILS UOP. HEAD TO TOE ASSESSMENT COMPLETED. PATIENT GIVEN SODA PER REQUEST AND BREAKFAST TRAY.
[2019-03-17 07:40] LABS: BASOPHILS 0.2 % (0-2); EOSINOPHILS 0.3 % (0-7); HEMATOCRIT 34.2 % (42.0-54.0); LYMPHOCYTES 10.4 % (15-50); MCH 30.4 pg (26.0-34.0); MCHC 35.1 g/dL (31.0-37.0); MCV 86.6 fL (80.0-100.0); MEAN PLATELET VOLUME 10.9 fL (7.4-10.4); MONOCYTES 13.9 % (2-11); NEUTROPHILS 73.2 % (40-80); PLATELET COUNT 205 10x3/uL (130-400); RBC 3.95 10x6/uL (4.20-6.10); RDW 16.3 % (11.5-14.5); WBC 11.6 10x3/uL (4.8-10.8)
--- NOTE | 2019-03-17 07:57 | NUR ---
PATIENT RESTING QUIETLY, ATE APPROXIMATELY 30% OF BREAKFAST.
[2019-03-17 08:01] LABS: ALBUMIN 1.7 g/dL (3.4-5.0); BILIRUBIN - TOTAL 5.82 mg/dL (0.2-1.3); CALCIUM 7.6 mg/dL (8.5-10.1); CARBON DIOXIDE 33.8 mmol/L (21.0-32.0); CHOL - HDL RATIO 10.2 ratio (2.3-4.9); CREATININE - SERUM 2.2 mg/dL (0.6-1.3); LDL-HDL RATIO 5.8 ratio (1.5-3.5); MAGNESIUM - SERUM 1.4 mg/dL (1.8-2.4); PHOSPHOROUS 3.7 mg/dL (2.5-4.9); POTASSIUM - SERUM 3.8 mmol/L (3.5-5.1); PROTEIN - SERUM 4.7 g/dL (6.4-8.2)
--- NOTE | 2019-03-17 08:28 | NUR ---
DR. MENDIOLA AT ROOM EXAMINES PATIENT AND UPDATED. OK TO TRANSFER TO FLOOR PER RENAL STANDPOINT. PATIENT UP TO BEDSIDE COMMODE WITH ASSIST X 2, LARGE BROWN SOFT BM. LINENS CHANGED TO BED AND ASSISTED BACK TO BED.
[2019-03-17 08:36] LABS: PROTIME > 120.0 SECONDS (11.6-15.0)
--- NOTE | 2019-03-17 08:51 | NUR ---
CONTACTED DR. BISHOP REGARDING PATIENTS PT >120, ADVISED TO HOLD XARELTO AND TO GIVE PATIENT 5 MG VIT K. WANTS TO SEE PATIENT PRIOR TO MAKING DECISION TO MOVE TO FLOOR.
--- NOTE | 2019-03-17 09:03 | NUR ---
PATIENT RESTING QUIETLY, EYES CLOSED. VSS.
--- NOTE | 2019-03-17 09:11 | NUR ---
PT/INR REDRAWN DUE TO SIGNIFICANT CHANGE FROM 38 TO GREATER THAN 120.
--- NOTE | 2019-03-17 09:15 | NUR ---
ISRAEL RESPIRATORY MANAGER NOTIFED THAT PATIENTS DAUGHTER MILES WOULD LIKE TO SPEAK WITH HER TELEPHONE NUMBER [phone].
[2019-03-17 10:08] LABS: PROTIME > 120.0 SECONDS (11.6-15.0)
--- NOTE | 2019-03-17 11:16 | NUR ---
DR. CERON AT ROOM, EXAMINES PATIENT AND OK TO TRANSFER TO FLOOR.
--- NOTE | 2019-03-17 11:52 | NUR ---
RECEIVED PATIENT FROM SCOTT MASSEY. ASSISTED PATIENT BACK TO BED. VSS. WILL CONTINUE TO MONITOR
--- NOTE | 2019-03-17 15:00 | NUR ---
PATIENT RESITNG IN BED. VSS. WILL CONTINUE TO MONITOR
--- NOTE | 2019-03-17 15:55 | NUR ---
VISITED PATIENT DUE TO CONCERNS VOICED BY WANTING TO MAKE HIM A CONFIDENTIAL PATIENT AND RESTRICT VISITORS (HIS SISTER AND DAUGHTER). STATED HE SHOULD NOT BE ALLOWED TO MAKE DECISIONS ON HIS OWN AND FEELS HE WILL NOT MAKE THE RIGHT DECISIONS SO SHE WANTS TO KNOW WHAT HER LEGAL STANCE IS ON RESTRICTING HIS VISITORS. UPON VISITING PATIENT, NURSE NOTED THAT HE ANSWERS ALL ORIENTATION QUESTIONS APPROPRIATELY TO INCLUDE WHO, WHAT, WHERE; HE MAY BE A LITTLE SLOWER TO RESPOND BUT DOES ANSWER CORRECTLY. PATIENT WAKENS EASILY UPON VERBAL STIMULI AND GREETS ME WITH HIS NAME. ANSWERS SEVERAL PERTINENT QUESTIONS CORRECTLY TOWARDS ORIENTATION. tHEN, VERIFIED THAT HE WAS AND THAT IT HAS BEEN FOR A WHILE AROUND 27-28 YEARS WHICH WAS CORRECT WITH 'S INFORMATION. ASKED PATIENT IF HE FELT ABLE TO MAKE DECISIONS AND HE KNEW HE WAS CONFUSED UPON ARRIVAL BUT FEELS MUCH BETTER AND READY TO GO HOME. STATES HE CAN MAKE HIS DECISIONS. INFORMED HIM THAT HIS WANTED TO MAKE HIM CONFIDENTIAL AND RESTRICT VISITORS. HE DECLINED THE NEED TO DO THIS AND STATED IT WAS FINE FOR ANYONE TO VISIT AND ANYONE TO GET UPDATES. ADVISED HIM THEY WOULD NEED A PW VIA PHONE TO GET INFORMATION. VERIFIED ONE LAST TIME THAT HE WAS OK FOR ANY VISITORS AND LET HIM KNOW HE WOULD TRANSFER TO THE FLOOR. HE IS FINE HAVING INFORMATION GO TO [facility]. INFORMED HIM VISITING HOURS WERE IN 10 MINUTES AND HE RESPONDED HE COULD HAVE ANYONE VISIT. PATIENT WAS ALERT DURING CONVERSATION AND ANSWERED EVERYTHING APPROPRIATELY ASKED. INFORMED HIM TO CALL ME WITH ANY FURTHER NEEDS OR QUESTIONS.
--- NOTE | 2019-03-17 16:36 | NUR ---
SPOKE TO DR BISHOP ABOUT CONCERNS AND PATIENT BEING ORIENTED AT TIME OF DISCUSSION. DR BISHOP STATED HE CAN MAKE DECISIONS, FEELS HIS JUDGEMENT MAY NOT ALWAYS BE THE BEST BUT DOES NOT SEE WHY HE CANNOT MAKE HIS OWN DECISIONS ON CARE AND VISITORS. HE DOES FEEL HE MAY BE A FALL RISK DUE TO INSTABILITY AND WANTS TO MAKE SURE HE IS MONITORED FOR THAT.
--- NOTE | 2019-03-17 17:01 | MORECARE ---
CASE MANAGEMENT DISCHARGE SUMMARY PATIENT: EDGARDO ANTHONY UNIT: [id number] ADM DATE: 03/15/19 AGE: 68 : 48 SEX: M ROOM/BED: D.2307 AUTHOR: KAREEN RICHARD PHYSICIAN: REFERRING PHYSICIAN: MICHELE BISHOP MD DATE OF SERVICE: 03/17/19 Discharge Plan Patient Name: EDGARDO ANTHONY [facility] [facility] 1950 Planned Disposition: Anticipated Discharge Date: Discharge Date: Expected LOS: Initial Reviewer: [email or web address] Initial Review Date: 03/16/2019 Generated: 03/17/19 6:00 pm DCPIA - Discharge Planning Initial Assessment Updated by [email or web address]: Bekah Colbert on 03/17/19 4:59 pm * Is the patient Alert and Oriented? Yes * How many steps to enter\exit or inside your home? * PCP Dai * Pharmacy [place] * Preadmission Environment Home with Family * ADLs Independent * Equipment None * List name and contact numbers for known caregivers / representatives who currently or will assist patient after discharge: Eleonora Anthony - - [phone] Deirdre - daughter- [phone] * Verbal permission to speak to the caregivers and representatives has been obtained from the patient. Yes * Community resources currently utilized None * Additional services required to return to the preadmission environment? No * Can the patient safely return to the preadmission environment? Yes * Has this patient been hospitalized within the prior 30 days at any hospital? Yes Patient Name: EDGARDO ANTHONY Page [id number] at 1701 All edits/amendments must be made on the electronic document DICTATION DATE: 03/17/191699 MAT WORKER: ROSALINDA 03/17/191699 RPT#: [id number] DC DATE: STATUS: ADM IN [facility] [address] [place] [address] END OF REPORT
--- NOTE | 2019-03-17 17:22 | MORECARE ---
CASE MANAGEMENT DISCHARGE SUMMARY PATIENT: EDGARDO ANTHONY UNIT: [id number] ADM DATE: 03/15/19 AGE: 68 : 46 SEX: M ROOM/BED: D.2307 AUTHOR: HILARY,DOC PHYSICIAN: REFERRING PHYSICIAN: MICHELE BISHOP MD DATE OF SERVICE: 03/17/19 Discharge Plan Patient Name: EDGARDO ANTHONY Facility: [facility]:[place] : 1950 Planned Disposition: Anticipated Discharge Date: Discharge Date: Expected LOS: Initial Reviewer: [email or web address] Initial Review Date: 03/16/2019 Generated: 03/17/19 6:22 pm Comments DCP- Discharge Planning Updated by [email or web address]: Bekah Colbert on 03/17/19 4:[address] Patient Name: EDGARDO ANTHONY Admission Status: ER Accout number: [id number] Admission Date: 03-15-2019 : 1950 Admission Diagnosis: Attending: MICHELE BISHOP Current LOS: 2 Anticipated DC Date: Planned Disposition: Primary Insurance: MEDICARE A & B Discharge Planning Comments: CM met with patient at bedside after explaining CM role and obtaining verbal consent. Patient states that he lives at home with his (Eleonora) and plans to return there upon discharge. Patient denies any use of medical equipment or Home health Services. Patient stated that he was ready to go home. CM was informed that patient's is requesting for patient to go to inpatient rehab before discharging home. CM will continue to follow and assist as needed with discharge planning / needs. Customer Supply Chain Analyst: Bekah Colbert DCPIA - Discharge Planning Initial Assessment Updated by [id number]: Bekah Colbert on 03/17/19 4:59 pm * Is the patient Alert and Oriented? Yes * How many steps to enter\exit or inside your home? * PCP Dai * Pharmacy [facility] * Preadmission Environment Home with Family * ADLs Independent * Equipment None * List name and contact numbers for known caregivers / representatives who currently or will assist patient after discharge: Eleonora Anthony - - [phone] Deirdre - daughter- [phone] * Verbal permission to speak to the caregivers and representatives has been obtained from the patient. Yes * Community resources currently utilized None * Additional services required to return to the preadmission environment? No * Can the patient safely return to the preadmission environment? Yes * Has this patient been hospitalized within the prior 30 days at any hospital? Yes Last DP export: 03/17/19 4:01 p Patient Name: EDGARDO ANTHONY Page [id number] at 1722 All edits/amendments must be made on the electronic document DICTATION DATE: 03/17/191721 DIRECTOR OF PROMOTIONS: ROSALINDA 03/17/191721 RPT#: [id number] DC DATE: STATUS: ADM IN [facility] [address] [place] [address] END OF REPORT
--- NOTE | 2019-03-17 17:34 | MORECARE ---
CASE MANAGEMENT DISCHARGE SUMMARY PATIENT: EDGARDO ANTHONY UNIT: [id number] ADM DATE: 03/15/19 AGE: 68 : 48 SEX: M ROOM/BED: D.2307 AUTHOR: HILARY,DOC PHYSICIAN: REFERRING PHYSICIAN: MICHELE BISHOP MD DATE OF SERVICE: 03/17/19 Discharge Plan Patient Name: EDGARDO ANTHONY Facility: [facility]:[place] : 1950 Planned Disposition: Anticipated Discharge Date: Discharge Date: Expected LOS: Initial Reviewer: [email or web address] Initial Review Date: 03/16/2019 Generated: 03/17/19 6:34 pm Comments DCP- Discharge Planning Updated by [email or web address]: Bekah Colbert on 03/17/19 4:[address] Late Entry 0940 CM received call that patient's daughter is requesting to see CM. CM met with daughter Deirdre and daughter -n -law Veronika. They were explaining that the patient's Eleonora was telling them that they couldn't find out any information on patient or come to visit him. Deirdre stated that the patient and Eleonora have been a long time but their relationship is questionable. Eleonora has left a few times. Deirdre stated that she just wants what is best for her Dad. She stated that she doesn't know what had happened to her Dad because he was doing better. Deirdre stated that she has heard many stories and doesn't know what to believe. Concerned because she was told that he had overdosed. CM explained that I haven't reviewed chart at all. CM will talk with patient to see if he wants information given to his daughter. SERGIO received Deirdre number [phone] and will call back once CM sees patient and can review chart. Ben- Deirdre daughter here. Patient informed staff / administration that they can release information to his family and spouse. Deirdre stated that Eleonora has told her that the patient is going to inpatient rehab upon discharge. Patient has order to transfer out to floor and family can stay with him in room. CM will continue to follow and assist as needed with discharge planning / needs. DCP- Discharge Planning Updated by [email or web address]: Bekah Colbert on 03/17/19 4:[address] Patient Name: EDGARDO ANTHONY Admission Status: ER Accout number: [id number] Admission Date: 03-15-2019 : 1950 Admission Diagnosis: Attending: MICHELE BISHOP Current LOS: 2 Anticipated DC Date: Planned Disposition: Primary Insurance: MEDICARE A & B Discharge Planning Comments: CM met with patient at bedside after explaining CM role and obtaining verbal consent. Patient states that he lives at home with his (Eleonora) and plans to return there upon discharge. Patient denies any use of medical equipment or Home health Services. Patient stated that he was ready to go home. CM was informed that patient's is requesting for patient to go to inpatient rehab before discharging home. CM will continue to follow and assist as needed with discharge planning / needs. Threading Machine Tender: Bekah HONEYCUTTA - Discharge Planning Initial Assessment Updated by [id number]: Bekah Colbert on 03/17/19 4:59 pm * Is the patient Alert and Oriented? Yes * How many steps to enter\exit or inside your home? * PCP Dai * Pharmacy [place] * Preadmission Environment Home with Family * ADLs Independent * Equipment None * List name and contact numbers for known caregivers / representatives who currently or will assist patient after discharge: Eleonora Anthony - - [phone] Deirdre - daughter- [phone] * Verbal permission to speak to the caregivers and representatives has been obtained from the patient. Yes * Community resources currently utilized None * Additional services required to return to the preadmission environment? No * Can the patient safely return to the preadmission environment? Yes * Has this patient been hospitalized within the prior 30 days at any hospital? Yes Last DP export: 03/17/19 4:23 p Patient Name: EDGARDO ANTHONY Page [id number] at 1735 All edits/amendments must be made on the electronic document DICTATION DATE: 03/17/191733 TILE MOLDER: ROSALINDA 03/17/191733 RPT#: [id number] DC DATE: STATUS: ADM IN [facility] [address] [place] [address] END OF REPORT
--- NOTE | 2019-03-17 19:20 | NUR ---
SHIFT ASSESSMENT COMPLETE. PATIENT WAS SLEEPING AROUSED EASILY WITH VERBAL STIMULATION. PT DENIES ANY NEEDS AT THIS TIME.
--- NOTE | 2019-03-17 23:45 | NUR ---
O2 PLACED ON PT AT 1L/MIN VIA NC DUE TO O2 SAT DECREASING TO 88-90% IMMEDIATE INCREASE TO 91-92%. PT DENIES ANY NEEDS AT THIS TIME. CALL LIGHT WITHIN REACH, BED IN LOW POSITION.
--- NOTE | 2019-03-18 02:58 | NUR ---
PT PULLED L AC IV OUT WITH BLOOD NOTED ON SHEET AND PRESSURE APPLIED TO PREVIOUS SITE. TAPE AND GUAZE PLACED WITH PRESSURE HELD. AFTER PRESSURE HELD AND RELEASED BLEEDING WAS NOTED AND PRESSURE APPLIED FOR APPROX 3-4 MINS AGAIN. BLEEDING STOPPED.
[2019-03-18 03:00] VITALS: BP 129/69
--- NOTE | 2019-03-18 05:36 | NUR ---
XRAY STAFF IN ROOM WITH PT. PT HAD TO BE EXPLAIN TO THE NEED OF XRAY BEFORE HE WOULD CONSENT TO PROCEDURE.
--- NOTE | 2019-03-18 06:23 | NUR ---
PT UP TO CHAIR, CHG BATH GIVEN, AND PT TOLERATED WELL. SP02 97% ON RA AT THIS TIME. CALL LIGHT WITHIN REACH.
--- NOTE | 2019-03-18 06:27 | NUR ---
PT STATES HE WANTS TO GO HOME AND HAS PLANNED TO LEAVE AT 9:30 IF PHYSICIAN IS NOT HERE TO DISCHARGE HIM. EXPLAINED TO PATIENT THAT HE COULD BE AT RISK IF HE LEFT HOME.
[2019-03-18 07:00] VITALS: BP 136/65
[2019-03-18 07:14] LABS: ALBUMIN 1.8 g/dL (3.4-5.0); ANION GAP 8.4 mmol/L (8-16); BILIRUBIN - TOTAL 7.83 mg/dL (0.2-1.3); CALCIUM 7.8 mg/dL (8.5-10.1); CARBON DIOXIDE 32.3 mmol/L (21.0-32.0); CREATININE - SERUM 1.9 mg/dL (0.6-1.3); POTASSIUM - SERUM 3.7 mmol/L (3.5-5.1); PROTEIN - SERUM 5.5 g/dL (6.4-8.2); VANCOMYCIN - TROUGH 27.4 ug/mL (10.0-20.0)
--- NOTE | 2019-03-18 07:45 | NUR ---
report received. dr maya at bedside. vss. will continue to monitor
--- NOTE | 2019-03-18 08:48 | NUR ---
physical therapy at bedside.
--- NOTE | 2019-03-18 09:38 | NUR ---
Rehab Note- Acute Inpatient Rehab prescreen order received. Reviewed medical record, the patient has been noted to refuse therapy. The patient will have to be willing to participate in the required 3hrs/day of therapy per Medicare guidelines for inpatient acute rehab. WIll follow at this time. THank you for this referral! Joleen Figueroa RN Clinical Liaison, [facility] Rehab
[2019-03-18 10:14] LABS: INR 8.13 (0.85-1.17)
--- NOTE | 2019-03-18 10:15 | NUR ---
DR BISHOP AT BEDSIDE. UPDATE GIVEN.
--- NOTE | 2019-03-18 10:34 | NUR ---
DR ASHER PAGED ABOUT CONSULT.
[2019-03-18 11:00] VITALS: BP 137/97
--- NOTE | 2019-03-18 11:00 | NUR ---
FAMILY IS AT BEDSIDE. AWAITING A ROOM NUMBER FOR THE PATIENT.
--- NOTE | 2019-03-18 13:46 | NUR ---
report given to cristina medina
--- NOTE | 2019-03-18 14:00 | NUR ---
RECIVED PER WC TO ROOM 2128 FROM ICU.
--- NOTE | 2019-03-18 14:40 | NUR ---
PATIENT HAS PACEMAKER. UNABLE TO DO MRI ABDOMEN. INFORMED DR BISHOP AT 0812.
[2019-03-18 15:48] VITALS: BP 126/42
--- NOTE | 2019-03-18 17:09 | NUR ---
WITHOUT CHANGES OR DISTRESS NOTED AT THIS TIME. DENIES NEEDS
[2019-03-18 20:00] VITALS: BP 133/79
--- NOTE | 2019-03-18 21:42 | NUR ---
02 SAT DROPPED TO 84% ON ROOM AIR. PLAXCE O2 ON PT AND O2 SAT UP TO 91%. CALLED RT TO EVALUATE AND INCREASE O2 AGAIN AND SAT 91 %.
--- NOTE | 2019-03-18 22:00 | NUR ---
RECIEVED LAYING IN BED WITH ELIANA VISITORS AT BEDSIDE. ALERT AND OPRINTED. IV TO LEFT SHOULDER SL.. PACEMAKER TO LEFT CHEST AND [place]. DENIES ANY NEEDS AT THIS TIME.
[2019-03-19] VITALS: BP 139/90
[2019-03-19 04:00] VITALS: BP 138/87
[2019-03-19 06:42] LABS: BASOPHILS 0.2 % (0-2); EOSINOPHILS 0.2 % (0-7); HEMATOCRIT 34.4 % (42.0-54.0); HEMOGLOBIN 12.4 g/dL (13.5-17.5); IMMATURE GRANULOCYTES 2.3 % (0-5); LYMPHOCYTES 11.5 % (15-50); MCH 31.1 pg (26.0-34.0); MCV 86.2 fL (80.0-100.0); MEAN PLATELET VOLUME 10.8 fL (7.4-10.4); MONOCYTES 15.2 % (2-11); NEUTROPHILS 70.6 % (40-80); PLATELET COUNT 203 10x3/uL (130-400); RBC 3.99 10x6/uL (4.20-6.10); RDW 16.2 % (11.5-14.5)
[2019-03-19 06:49] LABS: WBC 15.5 10x3/uL (4.8-10.8)
[2019-03-19 07:16] LABS: ALBUMIN 1.6 g/dL (3.4-5.0); ANION GAP 8.2 mmol/L (8-16); BILIRUBIN - DIRECT 6.31 mg/dL (0.00-0.30); BILIRUBIN - INDIRECT 2.65 mg/dL (0.00-1.00); BILIRUBIN - TOTAL 8.96 mg/dL (0.2-1.3); CALCIUM 7.6 mg/dL (8.5-10.1); CARBON DIOXIDE 31.6 mmol/L (21.0-32.0); CREATININE - SERUM 1.8 mg/dL (0.6-1.3); POTASSIUM - SERUM 3.8 mmol/L (3.5-5.1); PROTEIN - SERUM 5.1 g/dL (6.4-8.2)
--- NOTE | 2019-03-19 07:25 | NUR ---
ASSESSMENT DONE. DENIES NEEDS
[2019-03-19 07:45] LABS: INR 3.01 (0.85-1.17); PROTIME 30.4 SECONDS (11.6-15.0)
--- NOTE | 2019-03-19 10:16 | NUR ---
I have reviewed this patient and I concur with the Shift Assessment completed by the Licensed Practical Nurse today this shift.
--- NOTE | 2019-03-19 10:48 | NUR ---
Nutrition Follow-up: Pt reports slightly decreased appetite this AM 2/2 pain. C/o dry mouth. Diet: Regular PO intake: 67% avg meal intake (03/18) Last BM: 03/18 Wt stable Labs noted: Glu 106, Alb 1.6, GFR 40 Meds reviewed Rec continue current diet as tolerated. Encourage PO intake. Offer nutrition supplements. RD following.
[2019-03-19 12:27] VITALS: BP 139/77
--- NOTE | 2019-03-19 17:08 | MORECARE ---
CASE MANAGEMENT DISCHARGE SUMMARY PATIENT: EDGARDO ANTHONY UNIT: [id number] ADM DATE: 03/15/19 AGE: 68 : 48 SEX: M ROOM/BED: D.0836 AUTHOR: HILARY,DOC PHYSICIAN: REFERRING PHYSICIAN: MICHELE BISHOP MD DATE OF SERVICE: 03/19/19 Discharge Plan Patient Name: EDGARDO ANTHONY Facility: [facility]:[place] : 1950 Planned Disposition: Home Anticipated Discharge Date: 03/20/19 Discharge Date: Expected LOS: 5 Initial Reviewer: [email or web address] Initial Review Date: 03/16/2019 Generated: 03/19/19 6:08 pm Comments DCP- Discharge Planning Updated by [email or web address]: Jeff Mejía on 03/19/19 4:[address] Patient Name: EDGARDO ANTHONY Encounter No: [id number] : 1950 Primary Insurance: MEDICARE A & B Anticipated DC Date: 03-20-2019 Planned Disposition: Home DCP follow-up note: CM SPOKE TO PT IN ROOM REGARDING DISCHARGE PLANNING AND NEEDS. CM REVIEWED THERAPY NOTES WHO HAVE SIGNED OFF TO NURSING. PT REPORTED HE DID NOT WANT TO GO TO REHAB ANYWAY, THAT IS HIS 'S IDEA. PT REPORTS PLAN TO GO HOME AT DISCHARGE. PT DECLINES REHAB, GROUP HOME REHAB AND HOME HEALTH AT THIS TIME. PT UNDERSTANDS IF HE GETS HOME AND DECIDES H E WANTS HOME HEALTH, HE CAN CONTACT DR. BISHOP IN THE OFFICE TO REQUEST HOME HEALTH SERVICES. PT WILL DISCHARGE HOME TO HIS DAUGHTERS HOME, [facility], ; [address] [place] [address]. FAMILY TO TRANSPORT HOME AT DISCHARGE. PT DENIES DISCHARGE NEEDS, CM TO FOLLOW AND ASSIST NEEDED. KITA Salgado DCP- Discharge Planning Updated by [email or web address]: Bekah Colbert on 03/17/19 4:[address] Late Entry 0940 CM received call that patient's daughter is requesting to see CM. CM met with daughter Deirdre and daughter -n -law Veronika. They were explaining that the patient's Eleonora was telling them that they couldn't find out any information on patient or come to visit him. Deirdre stated that the patient and Eleonora have been a long time but their relationship is questionable. Eleonora has left a few times. Deirdre stated that she just wants what is best for her Dad. She stated that she doesn't know what had happened to her Dad because he was doing better. Deirdre stated that she has heard many stories and doesn't know what to believe. Concerned because she was told that he had overdosed. CM explained that I haven't reviewed chart at all. CM will talk with patient to see if he wants information given to his daughter. CM received Deirdre number [phone] and will call back once CM sees patient and can review chart. 1600- Deirdre daughter here. Patient informed staff / administration that they can release information to his family and spouse. Deirdre stated that Eleonora has told her that the patient is going to inpatient rehab upon discharge. Patient has order to transfer out to floor and family can stay with him in room. CM will continue to follow and assist as needed with discharge planning / needs. DCP- Discharge Planning Updated by [email or web address]: Bekah Colbert on 03/17/19 4:[address] Patient Name: EDGARDO ANTHONY Admission Status: ER Accout number: [id number] Admission Date: 03-15-2019 : 1950 Admission Diagnosis: Attending: MICHELE BISHOP Current LOS: 2 Anticipated DC Date: Planned Disposition: Primary Insurance: MEDICARE A & B Discharge Planning Comments: CM met with patient at bedside after explaining CM role and obtaining verbal consent. Patient states that he lives at home with his (Eleonora) and plans to return there upon discharge. Patient denies any use of medical equipment or Home health Services. Patient stated that he was ready to go home. CM was informed that patient's is requesting for patient to go to inpatient rehab before discharging home. CM will continue to follow and assist as needed with discharge planning / needs. Medical Detail Representative: Bekah Colbert DCPIA - Discharge Planning Initial Assessment Updated by [id number]: Bekah Colbert on 03/17/19 4:59 pm * Is the patient Alert and Oriented? Yes * How many steps to enter\exit or inside your home? * PCP Dai * Pharmacy [facility] * Preadmission Environment Home with Family * ADLs Independent * Equipment None * List name and contact numbers for known caregivers / representatives who currently or will assist patient after discharge: Eleonora Anthony - - [phone] Deirdre - daughter- [phone] * Verbal permission to speak to the caregivers and representatives has been obtained from the patient. Yes * Community resources currently utilized None * Additional services required to return to the preadmission environment? No * Can the patient safely return to the preadmission environment? Yes * Has this patient been hospitalized within the prior 30 days at any hospital? Yes Coverage Notice Reviewer: [id number] Margaret Mejía Notice Issued Date-Time: 03/19/2019 16:55 Notice Type: IM Discharge Notice Notice Delivered To: Patient Relationship to Patient: Quick Mixer Operator Name: Delivery Method: HAND - Hand Delivered Mona Days: Prior Verbal Notification: Recipient Understood Notice: Yes Recipient Signature: Yes Med Rec Note Co-signed by Attending: Coverage Notice Comment: Last DP export: 03/17/19 4:34 p Patient Name: EDGARDO ANTHONY Page 99760 at 1708 All edits/amendments must be made on the electronic document DICTATION DATE: 03/19/191707 FARMWORKER MACHINE: ROSALINDA 03/19/191707 RPT#: [id number] DC DATE: STATUS: ADM IN [facility] [address] [place] [address] END OF REPORT
--- NOTE | 2019-03-19 17:39 | NUR ---
PER DR BISHOP, MAY EDIT TO LTD, GB AND LIVER DAVIN HAGERMS
--- NOTE | 2019-03-19 18:25 | NUR ---
WITHOUT CHANGES OR DISTRESS NOTED AT THIS TIME.
--- NOTE | 2019-03-19 19:10 | NUR ---
EVENING ROUNDS MADE. PATIENT A/OX3, SITTING UP IN BED. PATIENT HARD OF HEARING. NPO UNTIL ABDOMINAL ULTRASOUND IS PERFORMED. IV TO RT HAND, PATENT, DRSG C/D/I, NS@125. BREATHING EVEN AND UNLABORED. PATIENT IS MAKING NOISES RANDOMLY, ASKED HIM IF HE WAS OK AND HE SAID YES. PATIENT REQUESTS PAIN MED, INFORMED PATIENT HE HAD ALMOST AN HOUR BEFORE HE CAN HAVE IT. PATIENT DENIES FURTHER NEEDS. CL IN REACH, BED LOCKED AND LOWERED. WILL CTM.
[2019-03-19 20:00] VITALS: BP 129/60
--- NOTE | 2019-03-19 20:05 | NUR ---
AMINISTERED PRN PAIN MED AND STARTED VANC. ABDOMINAL U/S PERFORMED, PATIENT IS NOW BACK TO REGULAR DIET. PATIENT WAS UP EATING. PATIENT DENIES FURTHER NEEDS AT THIS TIME. CL IN REACH, BED LOCKED AND LOWERED. WILL CTM.
--- NOTE | 2019-03-19 21:20 | NUR ---
PATIENT IS STILL IN PAIN, ASKING TO HAVE DR. SANTIAGO TO REQUEST MORE PAIN MEDICATION. PAGEDaisy BISHOP, RECEIVED CALLBACK AND ORDER GIVEN, SEE EMAR. WILL CTM.
[2019-03-20] VITALS: BP 128/66
--- NOTE | 2019-03-20 00:46 | NUR ---
I have reviewed this patient and I concur with the Shift Assessment completed by the Licensed Practical Nurse today this shift.
[2019-03-20 04:00] VITALS: BP 121/67
[2019-03-20 05:26] LABS: BASOPHILS 0.2 % (0-2); EOSINOPHILS 0.5 % (0-7); HEMOGLOBIN 11.8 g/dL (13.5-17.5); IMMATURE GRANULOCYTES 2.4 % (0-5); MCH 30.8 pg (26.0-34.0); MCHC 35.8 g/dL (31.0-37.0); MCV 86.2 fL (80.0-100.0); MEAN PLATELET VOLUME 11.1 fL (7.4-10.4); MONOCYTES 14.1 % (2-11); NEUTROPHILS 70.8 % (40-80); PLATELET COUNT 184 10x3/uL (130-400); RBC 3.83 10x6/uL (4.20-6.10); RDW 16.5 % (11.5-14.5); WBC 15.1 10x3/uL (4.8-10.8)
[2019-03-20 05:36] LABS: INR 1.92 (0.85-1.17); PROTIME 21.3 SECONDS (11.6-15.0)
[2019-03-20 05:42] LABS: ALBUMIN 1.5 g/dL (3.4-5.0); ANION GAP 7.6 mmol/L (8-16); BILIRUBIN - DIRECT 6.68 mg/dL (0.00-0.30); BILIRUBIN - INDIRECT 2.53 mg/dL (0.00-1.00); BILIRUBIN - TOTAL 9.21 mg/dL (0.2-1.3); CALCIUM 7.6 mg/dL (8.5-10.1); CARBON DIOXIDE 31.5 mmol/L (21.0-32.0); CREATININE - SERUM 1.5 mg/dL (0.6-1.3); POTASSIUM - SERUM 4.1 mmol/L (3.5-5.1); PROTEIN - SERUM 4.8 g/dL (6.4-8.2)
--- NOTE | 2019-03-20 07:24 | NUR ---
ROUNDING DONE WITH PATIENT LAYING ON LEFT SIDE, NEW IV FLUIDS ARE BEING HUNG FROM ACCOUNT MANAGER. PATIENT DENIES NEEDS AT THIS ITME. ON 2L PER NC AT THIS TIME. RIGHT HAND PIV SEEN WITH NS INFUSING AT 125 CC/HR. ON EP, K+ IS 4.1. IN REPORT PATIENT IS HARD OF HEARING. ON HEART MONITOR.
--- NOTE | 2019-03-20 10:54 | NUR ---
PATIENT IS ADAMENT ABOUT NOT HAVING THE ERCP DONE. PAGE INTO DR EATON. [id number] EATON TO CALL BACK AND MADE AWARE OF PATIENT DECISION. HE ASKED THAT I PAGE DR BISHOP AND LET HIM BE AWARE OF THIS.
--- NOTE | 2019-03-20 10:57 | NUR ---
I CALLED DR BISHOP OFFICE AND SPOKE WITH LAURYN TO LET TELL DR BISHOP. SHE SAID SHE WILL TEXT HIM
--- NOTE | 2019-03-20 11:36 | NUR ---
DR BISHOP HERE TO SEE PATIENT.
[2019-03-20] MEDS ORDERED: XARELTO15 MG PO (11:39)
[2019-03-20 11:40] VITALS: BP 132/89
[2019-03-20] MEDS ORDERED: CARDIZEM CD180 MG PO (11:40)
[2019-03-20] MEDS ORDERED: LANOXIN125 MCG PO (11:40)
[2019-03-20] MEDS ORDERED: HYDROCODON-ACE1 EA10 PO (11:41)
--- NOTE | 2019-03-20 11:42 | NUR ---
DAUGHTER MILES SANDOVAL TO CALL ME AND ASK IF WE HAD A DISCHARGE ORDER FOR THE PATIENT. I TOLD HER THAT DR BISHOP WAS IN TO SEE PATIENT AND WOULD POSSIBLY LET HIM GO, BUT AT THIS SPECIFIC TIME I DID NOT HAVE AN ORDER.
--- NOTE | 2019-03-20 12:11 | NUR ---
IV FLUIDS CONVERTED TO SALINE LOCK PATIENT IS BEING DISCHARGED HOME.
--- NOTE | 2019-03-20 12:55 | NUR ---
HEART MONITOR TURNED IN PATIENT IS GOING HOME.
--- NOTE | 2019-03-20 13:39 | NUR ---
VERBAL AND WRITTEN DISCHARGE INSTRUCTIONS GIVEN TO PATIENT ALONG WITH WRITTEN SCRIPT FOR [place] # 15. TWO MALE FAMILY MEMBERS WITH PATIENT. SALINE LOCK REMOVED WITH CATH TIP INTACT.
--- NOTE | 2019-03-20 13:49 | NUR ---
DISCHARGED HOME VIA WHEELCHAIR.
--- NOTE | 2019-03-20 14:58 | MORECARE ---
CASE MANAGEMENT DISCHARGE SUMMARY PATIENT: EDGARDO ANTHONY UNIT: [id number] ADM DATE: 03/15/19 AGE: 68 : 48 SEX: M ROOM/BED: D.0035 AUTHOR: HILARY,DOC PHYSICIAN: REFERRING PHYSICIAN: MICHELE BISHOP MD DATE OF SERVICE: 03/20/19 Discharge Plan Patient Name: EDGARDO ANTHONY Facility: [facility]:[place] : 1950 Planned Disposition: Home Anticipated Discharge Date: 03/20/19 Discharge Date: 03/20/2019 Expected LOS: 5 Initial Reviewer: [email or web address] Initial Review Date: 03/16/2019 Generated: 03/20/19 3:58 pm Comments DCP- Discharge Planning Updated by [id number]: Jeff Mejía on 03/20/19 1:[address] Patient Name: EDGARDO ANTHONY Encounter No: [id number] : 1950 Primary Insurance: MEDICARE A & B Anticipated DC Date: 03-20-2019 Planned Disposition: Home DCP follow-up note: BEDSIDE NURSE INFORMED CM THAT PT WILL DISCHARGE HOME TODAY. CM MET WITH PT IN ROOM TO DISCUSS DISCHARGE NEEDS AND PLANNING. CM DISCUSSED AVAILABILITY OF HOME HEALTH, REHAB SERVICES AND MEDICAL EQUIPMENT. PT DENIES DISCHARGE NEEDS. DAUGHTER TO TRANSPORT HOME AT DISCHARGE. KITA Salgado DCP- Discharge Planning Updated by [id number]: Jeff Mejía on 03/19/19 4:[address] Patient Name: EDGARDO ANTHONY Encounter No: [id number] : 1950 Primary Insurance: MEDICARE A & B Anticipated DC Date: 03-20-2019 Planned Disposition: Home DCP follow-up note: CM SPOKE TO PT IN ROOM REGARDING DISCHARGE PLANNING AND NEEDS. CM REVIEWED THERAPY NOTES WHO HAVE SIGNED OFF TO NURSING. PT REPORTED HE DID NOT WANT TO GO TO REHAB ANYWAY, THAT IS HIS 'S IDEA. PT REPORTS PLAN TO GO HOME AT DISCHARGE. PT DECLINES REHAB, RETIREMENT REHAB AND HOME HEALTH AT THIS TIME. PT UNDERSTANDS IF HE GETS HOME AND DECIDES H E WANTS HOME HEALTH, HE CAN CONTACT DR. BISHOP IN THE OFFICE TO REQUEST HOME HEALTH SERVICES. PT WILL DISCHARGE HOME TO HIS DAUGHTERS HOME, [facility], ; [address] [place] [address]. FAMILY TO TRANSPORT HOME AT DISCHARGE. PT DENIES DISCHARGE NEEDS, CM TO FOLLOW AND ASSIST NEEDED. Jeff Mejía, CASE MANAGEMENT DCP- Discharge Planning Updated by [id number]: Bekah Colbert on 03/17/19 4:[address] Late Entry 0940 CM received call that patient's daughter is requesting to see CM. CM met with daughter Deirdre and daughter -n -law Veronika. They were explaining that the patient's Eleonora was telling them that they couldn't find out any information on patient or come to visit him. Deirdre stated that the patient and Eleonora have been a long time but their relationship is questionable. Eleonora has left a few times. Deirdre stated that she just wants what is best for her Dad. She stated that she doesn't know what had happened to her Dad because he was doing better. Deirdre stated that she has heard many stories and doesn't know what to believe. Concerned because she was told that he had overdosed. CM explained that I haven't reviewed chart at all. CM will talk with patient to see if he wants information given to his daughter. CM received Deirdre number [phone] and will call back once CM sees patient and can review chart. 1600- Deirdre daughter here. Patient informed staff / administration that they can release information to his family and spouse. Deirdre stated that Eleonora has told her that the patient is going to inpatient rehab upon discharge. Patient has order to transfer out to floor and family can stay with him in room. CM will continue to follow and assist as needed with discharge planning / needs. DCP- Discharge Planning Updated by [id number]: Bekah Colbert on 03/17/19 4:[address] Patient Name: EDGARDO ANTHONY Admission Status: ER Accout number: [id number] Admission Date: 03-15-2019 : 1950 Admission Diagnosis: Attending: MICHELE BISHOP Current LOS: 2 Anticipated DC Date: Planned Disposition: Primary Insurance: MEDICARE A & B Discharge Planning Comments: CM met with patient at bedside after explaining CM role and obtaining verbal consent. Patient states that he lives at home with his (Eleonora) and plans to return there upon discharge. Patient denies any use of medical equipment or Home health Services. Patient stated that he was ready to go home. CM was informed that patient's is requesting for patient to go to inpatient rehab before discharging home. CM will continue to follow and assist as needed with discharge planning / needs. Telephone Solicitor: Bekah Colbert DCPIA - Discharge Planning Initial Assessment Updated by [id number]: Bekah Colbert on 03/17/19 4:59 pm * Is the patient Alert and Oriented? Yes * How many steps to enter\exit or inside your home? * PCP Dai * Pharmacy [facility] * Preadmission Environment Home with Family * ADLs Independent * Equipment None * List name and contact numbers for known caregivers / representatives who currently or will assist patient after discharge: Eleonora Anthony - - [phone] Deirdre Robles daughter- [phone] * Verbal permission to speak to the caregivers and representatives has been obtained from the patient. Yes * Community resources currently utilized None * Additional services required to return to the preadmission environment? No * Can the patient safely return to the preadmission environment? Yes * Has this patient been hospitalized within the prior 30 days at any hospital? Yes Coverage Notice Reviewer: [email or web address] Margaret Mejía Notice Issued Date-Time: 03/19/2019 16:55 Notice Type: IM Discharge Notice Notice Delivered To: Patient Relationship to Patient: Sales And Service Advisor Name: Delivery Method: HAND - Hand Delivered Mona Days: Prior Verbal Notification: Recipient Understood Notice: Yes Recipient Signature: Yes Med Rec Note Co-signed by Attending: Coverage Notice Comment: Last DP export: 03/19/19 4:08 p Patient Name: EDGARDO ANTHONY Page 05690 at 9998 All edits/amendments must be made on the electronic document DICTATION DATE: 03/20/191456 HARBOR POLICE LIEUTENANT: ROSALINDA 03/20/191456 RPT#: [id number] DC DATE:03/20/19 STATUS: DIS IN [facility] [address] [place] [address] END OF REPORT
== END 2019-03-20 13:55 | disposition home or self-care (01) | DRG 871 ==
LOC: D.ER 20:15 → D.ICU 22:15 → D.M2 22:15 → D.ICU 22:15 → D.M2 03-18 13:47
PROVIDERS: Family Medicine; Internal Medicine; Internal Medicine Pulmonary Disease; ADMIT Family Medicine; ATTEND Family Medicine
DX: A41.9 Sepsis, unspecified organism (principal); J18.9 Pneumonia, unspecified organism; G93.41 Metabolic encephalopathy; N17.9 Acute kidney failure, unspecified; A02.0 Salmonella enteritis; J44.9 Chronic obstructive pulmonary disease, unspecified; R05 Cough; G47.33 Obstructive sleep apnea (adult) (pediatric); Z91.19 Patient's noncompliance with other medical treatment and regimen; I48.2 Chronic atrial fibrillation; Z79.01 Long term (current) use of anticoagulants; I27.20 Pulmonary hypertension, unspecified; E11.22 Type 2 diabetes mellitus with diabetic chronic kidney disease; I12.9 Hypertensive chronic kidney disease with stage 1 through stage 4 chronic kidney disease, or unspecified chronic kidney disease; N18.9 Chronic kidney disease, unspecified; F17.200 Nicotine dependence, unspecified, uncomplicated; E11.21 Type 2 diabetes mellitus with diabetic nephropathy; E86.0 Dehydration; I48.91 Unspecified atrial fibrillation; F51.04 Psychophysiologic insomnia; R94.5 Abnormal results of liver function studies; R41.82 Altered mental status, unspecified

== ENCOUNTER 2019-03-21 21:47 | Inpatient (IN) | payer MEDICARE, OTHER ==
[~2019-03-21] VITALS: Ht 193 cm; Wt 145.7 kg
--- NOTE | ~2019-03-21 | EC ---
PATIENT:EDGARDO ANTHONY DATE OF SERVICE: 03/22/19 SEX: M MEDICAL RECORD: [id number] DATE OF : [birth year] LOCATION:[place] [address] AGE OF PATIENT: 68 ADMISSION DATE: 03/22/19 REFERRING PHYSICIAN: INTERPRETING PHYSICIAN: BRENDA CATHERINE MD ECHOCARDIOGRAM REPORT ECHO CHARGES 4 ECHO COMPLETE Date: 03/24/19 CLINICAL DIAGNOSIS: AF ECHOCARDIOGRAPHIC MEASUREMENTS (adult normal given) AC root (d.<3.7cm) 2.7 cm LV Septum d (<1.2 cm> 1.1 cm Valve Excursion 2.0 cm LV Septum (systole) 1.3 cm Left Atria (s.<4.0cm> 4.5 cm LVPW d(<1.2cm) 1.3 cm RV (d.<2.3cm) 4.2 cm LVPW (sytole) 1.4 cm LV diastole(<5.6CM) 5.8 cm MV E-F(>70mm/sec) cm LV systole 4.8 cm LVOT Diameter 2.1 cm MV exc.(>10mm) cm Est.ejection fraction (50-75%) % DOPPLER: LVIT cm/sec A 25 cm/sec E 100 cm/sec LA cm/sec RVSP 39.1 mmHg LVOT 117 cm/sec AOP1/2T m/s Asc. Ao 171 cm/sec RVOT 66 cm/sec RA cm/sec PA 99 cm/sec AV Gradient Peak 11.7 mmHg AV Mean 5.4 mmHg AV Area 2.7 cm MV Gradient Peak 8.5 mmHg MV Mean 3.0 mmHg MV Area cm COMMENTS: Stock Preparation Operator: Maldonado MARSHALL Wire Tester: 1 Dr. Catherine TAPE# PACS Pericardial Effusion N DATE OF SERVICE: 03/24/2019 FINDINGS: 1. Left ventricular chamber size is within normal limits. Left ventricular systolic function is normal. Overall ejection fraction is estimated at 55%. 2. Left atrium is enlarged at 4.5 cm. Right atrium and right ventricular chamber sizes are as well mildly dilated. 3. Valvular structures have normal structure and motion. 4. Doppler interrogation reveals mild mitral regurgitation and mild tricuspid regurgitation. No other valvular insufficiency or stenosis. Pulmonary systolic ECHOCARDIOGRAM REPORT [id number] EDGARDO ANTHONY pressure is estimated at 39 mmHg. 5. No evidence of pericardial effusion or left ventricular thrombus. TRANSINT:[id number] Voice Confirmation ID: [id number] DOCUMENT ID: [id number] BRENDA CATHERINE MD CC: [id number] DICTATION DATE: 03/24/19 1601 ONLINE PRODUCER: 03/24/19 175 DIS IN 03/24/19 [facility] [address] [place] [id number]
--- NOTE | ~2019-03-21 | CN ---
PATIENT NAME:EDGARDO SCHMIDT MEDICAL RECORD: [id number] : 46 LOCATION:MAYEID.CV01 ADMIT DATE: 03/22/19 ACCOUNT: [id number] CONSULTING PHYSICIAN: BRENDA JETT MD REFERRING PHYSICIAN: MICHELE BISHOP MD DATE OF CONSULTATION: 03/24/2019 DIAGNOSES: 1. Atrial fibrillation, chronic. 2. Previous cardiac pacemaker. 3. Pacemaker end of life. 4. Hypertension. 5. Abdominal aortic aneurysm. 6. Peripheral vascular disease. HISTORY OF PRESENT ILLNESS: Mr. Schmidt presents in an acute setting of an acute enlarging abdominal aortic aneurysm. He underwent emergent stent grafting for this. He has a history of a pacemaker. Last time we saw him was in 2011. At that time, the pacemaker had 12 months left. He has not had the pacemaker replaced and has done fine with that. He has chronic atrial fibrillation. His heart rate here has been in the 70s. PHYSICAL EXAMINATION: GENERAL APPEARANCE: Well-nourished, well-developed, appears stated age. Level of distress, comfortable. PSYCHIATRIC: Mental status, alert, normal affect. Orientation, oriented to time, place and person. EYES: Lids and conjunctiva, noninjected. No discharge, no pallor. ENT: Lips, teeth, gums, normal dentition. Oropharynx, no cyanosis, no pallor. NECK: Carotid arteries, bilateral normal upstroke, no bruits, no thrills. JUGULAR VEINS: No jugular venous pressure or distention. CERVICAL LYMPH NODES: Nontender, nonenlarged. THYROID: Not enlarged. Nontender. No nodules. LUNGS: Respiratory effort, unlabored. CHEST: Normal curvature. No thoracic deformity. No chest wall tenderness. Percussion, resonant. Auscultation, clear. No wheezes, no rales, no rhonchi. CARDIOVASCULAR: Precordial exam, nondisplaced. No heaves or pericardial thrills. Rate and rhythm, regular. Heart sounds, normal S1, normal S2. No S3, no gallop, no rub. Systolic murmur, not heard. Diastolic murmur, not heard. EXTREMITIES: No cyanosis, no edema. Peripheral pulses, full and equal in all extremities, except as noted. No bruits appreciated. ABDOMEN: Soft, nondistended. Normal aorta. No bruit. Nontender. No masses. Liver, nontender, no hepatomegaly. Spleen, nontender, no splenomegaly. MUSCULOSKELETAL: No joint tenderness. No joint swelling. No erythema. NEUROLOGICAL: Normal gait, normal strength, normal tone. SKIN: Warm and dry. OVERALL IMPRESSION: Pacemaker end of life. Most likely has been end of life for at least 5-6 years now and the patient has done well without it. The patient does not want a pacemaker replacement at this time. From a cardiac standpoint, he does not need the pacemaker replaced. We will be happy to see him in the future if need be. TRANSINT:[id number] Voice Confirmation ID: [id number] DOCUMENT ID: [id number] CONSULT REPORT [id number] EDGARDO SCHMIDT JEFFREY MD CC: [id number] DICTATION DATE: 03/24/19 1022 IMMIGRATION LAW SPECIALIST: 03/24/19 1311 ADM IN [facility] [address] [place] [address]
--- NOTE | ~2019-03-21 | CN ---
PATIENT NAME:EDGARDO ANTHONY MEDICAL RECORD: [id number] : 46 LOCATION:MAYEID.CV01 ADMIT DATE: 03/22/19 ACCOUNT: [id number] CONSULTING PHYSICIAN: CHUCKIE CAMPOS MD REFERRING PHYSICIAN: MICHELE BISHOP MD DATE OF CONSULTATION: 03/22/2019 Pulmonology Consultation CONSULT REQUESTING PHYSICIAN: Johan Graves MD REASON FOR CONSULTATION: Pneumonia, status post abdominal aortic aneurysm. HISTORY OF PRESENT ILLNESS: Mr. Anthony is a 68-year-old gentleman who was admitted to the ER with abdominal pain. Workup showed a leaking abdominal aortic aneurysm. The patient was taken to the OR and the aneurysm has been repaired, now the patient is hypoxic. The patient is intubated. He is sleepy, but he is arousable. REVIEW OF SYSTEMS: As in history of present illness. PAST MEDICAL HISTORY: 1. Gastroesophageal reflux disease. 2. Hypertension. 3. History of diarrhea. PAST SURGICAL HISTORY: He has had joint replacement. ALLERGIES: No known drug allergy. MEDICATIONS: He is on vancomycin IV and meropenem IV. His other medication is reviewed. PERSONAL AND SOCIAL HISTORY: The patient is still an everyday smoker. He is a nondrinker. FAMILY HISTORY: Significant for cardiovascular diseases. PHYSICAL EXAMINATION: GENERAL: Now, the patient is lying comfortably. He is not in acute distress. VITAL SIGNS: The blood pressure is 116/56, pulse is 87, respiratory rate 16, temperature is 97, and SpO2 is 95% on 2 liters nasal cannula. HEENT: Conjunctivae are pink. Sclerae are not icteric. NECK: Supple, no JVD. CHEST: There are crackles on the right side. No wheezing. HEART: Rhythm regular, normal sound, no murmur. ABDOMEN: Firm. The abdomen is in dressing. The bowel sounds are abnormal. EXTREMITIES: No cyanosis, no clubbing, no pedal edema. CENTRAL NERVOUS SYSTEM: The patient is awake and alert. There are no obvious cranial nerve abnormalities. The speech is normal. CHEST RADIOGRAPH: There is infiltrate right lower lobe. OTHER LABORATORY DATA: CBC: WBC is 14.5, hemoglobin 10.2, hematocrit 28.9, the platelet count is 145. Chemistry: Sodium 136, potassium 4.1, BUN is 30, CONSULT REPORT [id number] ANTHONY,EDWARD R creatinine 1.8. ABG: The pH is 7.38, pCO2 is 44.3, the pO2 is 70, and bicarbonate is 26.2. IMPRESSION: 1. Acute hypoxic respiratory failure post-procedure, abdominal aortic aneurysm repair. 2. Pneumonia, right lower lobe, possible aspiration, possible community-acquired pneumonia. 3. Suspect chronic obstructive pulmonary disease. 4. History of smoking more than 20-npfh-ovbx. 5. Leukocytosis. RECOMMENDATION: 1. Continue with empiric vancomycin and meropenem. 2. Incentive spirometry. 3. Start albuterol/ipratropium nebulizer. 4. Brovana, budesonide nebulizer. 5. Check alpha-1. 6. The patient counselled to quit smoking. 7. Follow up labs and chest radiograph. 8. Incentive spirometry and flutter q.[address] Graves, thank you for involving me in the care of Mr. Anthony. TRANSINT:[id number] Voice Confirmation ID: [id number] DOCUMENT ID: [id number] CHUCKIE CAMPOS MD CC: [id number] DICTATION DATE: 03/22/196 FANCY NEEDLEWORKER: 03/23/[address] [facility] [address] [place] [id number]
[~2019-03-21 21:47] MED LIST changes: +CARDIZEM CD180 MG PO; +HYDROCODON-ACE1 EA10 PO; +LANOXIN125 MCG PO; +XARELTO15 MG PO
[2019-03-21 22:18] LABS: BASOPHILS 0.2 % (0-2); EOSINOPHILS 0 % (0-7); HEMATOCRIT 35.9 % (42.0-54.0); HEMOGLOBIN 12.8 g/dL (13.5-17.5); IMMATURE GRANULOCYTES 1.9 % (0-5); LYMPHOCYTES 13.2 % (15-50); MCH 30.9 pg (26.0-34.0); MCHC 35.7 g/dL (31.0-37.0); MCV 86.7 fL (80.0-100.0); MONOCYTES 11.6 % (2-11); NEUTROPHILS 73.1 % (40-80); PLATELET COUNT 200 10x3/uL (130-400); RBC 4.14 10x6/uL (4.20-6.10); RDW 16.3 % (11.5-14.5); WBC 13.4 10x3/uL (4.8-10.8)
[2019-03-21 22:20] LABS: ALBUMIN 1.7 g/dL (3.4-5.0); BILIRUBIN - TOTAL 6.43 mg/dL (0.2-1.3); CALCIUM 8.1 mg/dL (8.5-10.1); CARBON DIOXIDE 30.3 mmol/L (21.0-32.0); CREATININE - SERUM 1.8 mg/dL (0.6-1.3); POTASSIUM - SERUM 4.3 mmol/L (3.5-5.1); PROTEIN - SERUM 5.7 g/dL (6.4-8.2)
[2019-03-21 22:23] LABS: TROPONIN-I 0.026 ng/mL (0.000-0.060)
[2019-03-22] VITALS (47 sets, daily range): BP systolic 93–168; BP diastolic 45–90; Ht 193 cm; Wt 145.7 kg
[2019-03-22 01:33] LABS: ERYTHROCYTE SEDIMENTATION RATE 12 mm/hr (0-20)
[2019-03-22 02:12] LABS: APPEARANCE CLEAR (CLEAR); BILIRUBIN 1+ (NEGATIVE); COLOR DK YELLOW (YELLOW); GLUCOSE NEGATIVE (NEGATIVE); KETONE SMALL mg/dL (NEGATIVE); NITRITE NEGATIVE (NEGATIVE); PROTEIN NEGATIVE (NEGATIVE); SPECIFIC GRAVITY 1.015 (1.005-1.020); UROBILINOGEN NORMAL (NORMAL)
[2019-03-22 05:30] LABS: APTT 36.1 SECONDS (22.8-39.4); INR 1.52 (0.85-1.17); PROTIME 17.7 SECONDS (11.6-15.0)
[2019-03-22 14:48] LABS: HEMATOCRIT 28.9 % (42.0-54.0); MCH 30.7 pg (26.0-34.0); MCHC 35.3 g/dL (31.0-37.0); MEAN PLATELET VOLUME 10.4 fL (7.4-10.4); RBC 3.32 10x6/uL (4.20-6.10); RDW 16.4 % (11.5-14.5); WBC 14.5 10x3/uL (4.8-10.8)
[2019-03-22 14:49] LABS: HEMOGLOBIN 10.2 g/dL (13.5-17.5)
[2019-03-22 14:56] LABS: INR 1.61 (0.85-1.17); PROTIME 18.6 SECONDS (11.6-15.0)
[2019-03-22 15:11] LABS: ANION GAP 10.9 mmol/L (8-16); CALCIUM 7.6 mg/dL (8.5-10.1); CARBON DIOXIDE 26.2 mmol/L (21.0-32.0); CREATININE - SERUM 1.8 mg/dL (0.6-1.3); POTASSIUM - SERUM 4.1 mmol/L (3.5-5.1)
[2019-03-23] VITALS (63 sets, daily range): BP systolic 103–171; BP diastolic 40–79
[2019-03-23 06:03] LABS: BASOPHILS 0.1 % (0-2); EOSINOPHILS 0 % (0-7); HEMATOCRIT 26.8 % (42.0-54.0); HEMOGLOBIN 9.4 g/dL (13.5-17.5); IMMATURE GRANULOCYTES 2.1 % (0-5); LYMPHOCYTES 7.9 % (15-50); MCH 30.7 pg (26.0-34.0); MCHC 35.1 g/dL (31.0-37.0); MCV 87.6 fL (80.0-100.0); MEAN PLATELET VOLUME 10.8 fL (7.4-10.4); MONOCYTES 8.1 % (2-11); NEUTROPHILS 81.8 % (40-80); PLATELET COUNT 154 10x3/uL (130-400); RBC 3.06 10x6/uL (4.20-6.10); RDW 16.8 % (11.5-14.5)
[2019-03-23 06:07] LABS: WBC 9.1 10x3/uL (4.8-10.8)
[2019-03-23 06:26] LABS: ALBUMIN 1.8 g/dL (3.4-5.0); ANION GAP 11.8 mmol/L (8-16); BILIRUBIN - TOTAL 4.15 mg/dL (0.2-1.3); CALCIUM 7.8 mg/dL (8.5-10.1); CARBON DIOXIDE 27.9 mmol/L (21.0-32.0); CREATININE - SERUM 1.9 mg/dL (0.6-1.3); POTASSIUM - SERUM 4.7 mmol/L (3.5-5.1); PROTEIN - SERUM 5.1 g/dL (6.4-8.2)
--- NOTE | 2019-03-23 12:08 | OP ---
PATIENT NAME: EDGARDO ANTHONY MEDICAL RECORD: [id number] :46 LOCATION:D.CVI D.CV01 ADMISSION DATE:03/22/19 SURGEON: JOHAN MOE MD DATE OF OPERATION: 03/22/2019 SURGEON: Johan Moe MD SPRINKLER FITTER: Ortiz Causey OPERATION PERFORMED: 1. Placement of bifurcated aortic endograft. 2. Placement of suprarenal extension. 3. Percutaneous access bilaterally. 4. Aortogram times 2. 5. Right iliac angiogram. 6. Aortic angioplasty. PREOPERATIVE DIAGNOSIS: Ruptured abdominal aortic aneurysm. POSTOPERATIVE DIAGNOSIS: Ruptured abdominal aortic aneurysm. Plus hepatic failure, coagulopathy, renal failure, congestive heart failure, pleural effusion, and recent GI infection. ANESTHESIA: General endotracheal anesthesia. ESTIMATED BLOOD LOSS: 100 cc. COMPLICATIONS: None. CONDITION: Critical. DISPOSITION: ICU. OPERATIVE FINDINGS: 1. Contrast injection limited due to elevated creatinine, placement of a 25 x 110 main body with 30 limbs and a 28 x 95 suprarenal extension with good exclusion of the aneurysm. 2. One of the 3 ProGlides at the right groin did not appear to be placed intravascularly but the angiogram demonstrated good flow through the right groin with no extravasation. There was no external evidence of bleeding. There were Doppler bilateral posterior tibial and dorsalis pedis signals at the conclusion of the case. INDICATION: Abdominal aortic aneurysm that 2 weeks ago was 4.8 cm fusiform in nature with no evidence of leak is now hazy around the edges on a noncontrast scan and has enlarged to 6 cm consistent with a leaking aneurysm. The patient has severe back pain. DESCRIPTION OF PROCEDURE: The patient was brought to the operating suite. General anesthesia was obtained, the patient was prepped and draped both femoral arteries were accessed using micropuncture technique and ultrasound guidance. On the left, a 7-Japanese sheath was placed and on the right a 6-Japanese sheath. On the right side, two ProGlides were predeployed but as one of them did not appear to easily deploy within the vascular tree, a third midline ProGlide was deployed on the right for later closure and then the right sheath was changed to OPERATIVE REPORT [id number] EDGARDO ANTHONY an 8-Japanese sheath. Heparin was given. On the left side, the snare catheter and snare were placed on the right side. The stiff wire was exchanged and placed in the appropriate position. Then, the sheath was removed AFX introducer was placed. The main body was placed and the contralateral wire was grasped, pulled through the left side and the main body was set on the aortic bifurcation and then the main body deployed left limb deployed. The wire was detached and the pigtail was placed in the aorta above the renals. The right limb was deployed. Then, the suprarenal device was loaded and brought to the appropriate location. Aortogram was performed to visualize the renals. The device was carefully placed the pigtail was reformed between the 2 elements and then brought back into the aorta. The drug-coated balloon was used for aortic angioplasty between the 2 main body elements and then the stiff wire was exchanged for a regular soft wire. Completion angiogram revealed no endoleaks. The pigtail was pulled out of the aortic bifurcation. The right iliac sheath was removed, the ProGlides were deployed. The wire was removed. Hemostasis was ensured. Angiogram performed with no evidence of narrowing of the artery. Then, on the left side, the pigtail was reformed and removed. The wire was removed and Angio-Seal was deployed on the left. Protamine was given. There was no evidence of bleeding. The wounds were closed with 2 subcuticular sutures and Monocryl and there were Doppler dorsalis pedis and posterior tibial pulses bilaterally. The patient was taken to the ICU in critical condition. TRANSINT:[id number] Voice Confirmation ID: [id number] DOCUMENT ID: [id number] JOHAN MOE MD at 1208 CC: CHRIST VELA, MICHELE BISHOP and BRENDA JETT [id number] DICTATION DATE: 03/22/19 1433 INVESTIGATIVE ANALYST: 03/23/19 0114 ADM IN [facility] [address] [facility], [place] [address]
[2019-03-24] VITALS (10 sets, daily range): BP systolic 112–163; BP diastolic 56–84
[2019-03-24 06:12] LABS: HEMATOCRIT 28.8 % (42.0-54.0); HEMOGLOBIN 10.1 g/dL (13.5-17.5); MCH 31.1 pg (26.0-34.0); MCHC 35.1 g/dL (31.0-37.0); MCV 88.6 fL (80.0-100.0); MEAN PLATELET VOLUME 11.3 fL (7.4-10.4); RBC 3.25 10x6/uL (4.20-6.10); RDW 17.2 % (11.5-14.5)
[2019-03-24 06:16] LABS: ALBUMIN 1.8 g/dL (3.4-5.0); ANION GAP 8.9 mmol/L (8-16); BILIRUBIN - TOTAL 3.37 mg/dL (0.2-1.3); CALCIUM 8.2 mg/dL (8.5-10.1); CARBON DIOXIDE 30.5 mmol/L (21.0-32.0); CREATININE - SERUM 1.8 mg/dL (0.6-1.3); POTASSIUM - SERUM 4.4 mmol/L (3.5-5.1); PROTEIN - SERUM 5.4 g/dL (6.4-8.2)
[2019-03-24 06:17] LABS: INR 1.35 (0.85-1.17); PROTIME 16.1 SECONDS (11.6-15.0)
[2019-03-24 06:20] LABS: MAGNESIUM - SERUM 1.8 mg/dL (1.8-2.4)
[2019-03-24] MEDS ORDERED: AUGMENTIN 875-11 TAB PO (14:28)
[2019-03-24] MEDS ORDERED: IPRAT-ALBUT 0.5-3 ML UPD (14:29)
[2019-03-24] MEDS ORDERED: HEMOCYTE PLUS C1 CAP PO (14:29)
[2019-03-24] MEDS ORDERED: LOPRESSOR25 MG PO (14:35)
[2019-03-24] MEDS ORDERED: PULMICORT0.5 MG/21 UPD (14:38)
[2019-03-25 09:10] LABS: HEPATITIS C ANTIBODY <0.1 S/CO RAT (0.0-0.9)
--- NOTE | 2019-03-25 11:54 | MORECARE ---
CASE MANAGEMENT DISCHARGE SUMMARY PATIENT: EDGARDO ANTHONY UNIT: [id number] ADM DATE: 03/22/19 AGE: 68 : 48 SEX: M ROOM/BED: [facility] AUTHOR: KAREEN RICHARD PHYSICIAN: REFERRING PHYSICIAN: MICHELE BISHOP MD DATE OF SERVICE: 03/25/19 Discharge Plan Patient Name: EDGARDO ANTHONY [facility] [facility] 1950 Planned Disposition: Home Anticipated Discharge Date: Discharge Date: 03/24/2019 Expected LOS: Initial Reviewer: [email or web address] Initial Review Date: 03/24/2019 Generated: 03/25/19 12:53 pm DCPIA - Discharge Planning Initial Assessment Updated by [email or web address]: Bekah Colbert on 03/25/19 11:50 am * Is the patient Alert and Oriented? Yes * How many steps to enter\exit or inside your home? * PCP DARIO * Pharmacy [facility] * Preadmission Environment Home with Family * ADLs Independent * Other Equipment WALKER, BSC * List name and contact numbers for known caregivers / representatives who currently or will assist patient after discharge: MILES SIM - DAUGHTER- [phone], [phone] SARAGLORY ANTHONY - - [phone] * Verbal permission to speak to the caregivers and representatives has been obtained from the patient. Yes * Community resources currently utilized None * Additional services required to return to the preadmission environment? No * Can the patient safely return to the preadmission environment? Yes * Has this patient been hospitalized within the prior 30 days at any hospital? Yes Patient Name: EDGARDO ANTHONY Page [id number] at 1154 All edits/amendments must be made on the electronic document DICTATION DATE: 03/25/19 1153 KNITTER HELPER: ROSALINDA 03/25/19 1153 RPT#: [id number] DC DATE:03/24/19 STATUS: DIS IN [facility] [address] [place] [address] END OF REPORT
--- NOTE | 2019-03-25 12:01 | MORECARE ---
CASE MANAGEMENT DISCHARGE SUMMARY PATIENT: EDGARDO ANTHONY UNIT: [id number] ADM DATE: 03/22/19 AGE: 68 : 48 SEX: M ROOM/BED: D.[facility] AUTHOR: HILARY,DOC PHYSICIAN: REFERRING PHYSICIAN: MICHELE BISHOP MD DATE OF SERVICE: 03/25/19 Discharge Plan Patient Name: EDGARDO ANTHONY Facility: [facility]:[place] : 1950 Planned Disposition: Home Anticipated Discharge Date: Discharge Date: 03/24/2019 Expected LOS: Initial Reviewer: [email or web address] Initial Review Date: 03/24/2019 Generated: 03/25/19 1:00 pm Comments DCP- Discharge Planning Updated by [email or web address]: Bekah Colbert on 03/25/19 10:[address] LATE ENTRY 03/24/19 Patient Name: EDGARDO ANTHONY Admission Status: ER Accout number: [id number] Admission Date: 03-22-2019 : 1950 Admission Diagnosis: Attending: MICHELE BISHOP Current LOS: 2 Anticipated DC Date: Planned Disposition: Home Primary Insurance: MEDICARE A & B Discharge Planning Comments: CM met with patient at bedside after explaining CM role and obtaining verbal consent. Patient lives at home with his daughter Deirdre and plans to return there upon discharge. Patient states he isn't getting along with his so he is staying with his daughter. He states he plans on moving camper there to live in. Patient feels this would be a safe discharge. CM discussed availability / needs of home health and medical equipment. Patient is refusing home health and home nebulizer treatment. Patient signed JILLIAN refusal of services. Patient denies any discharge needs at this time. Patient states he will have his son n law drive him home upon discharge. CM will continue to follow and assist as needed with discharge planning / needs. Carcass Washer: Bekah Colbert DCPIA - Discharge Planning Initial Assessment Updated by [email or web address]: Bekah Colbert on 03/25/19 11:50 am * Is the patient Alert and Oriented? Yes * How many steps to enter\exit or inside your home? * PCP DARIO * Pharmacy [facility] * Preadmission Environment Home with Family * ADLs Independent * Other Equipment WALKER, BSC * List name and contact numbers for known caregivers / representatives who currently or will assist patient after discharge: DEIRDRE SIM - DAUGHTER- [phone], [phone] SARA ANTHONY - - [phone] * Verbal permission to speak to the caregivers and representatives has been obtained from the patient. Yes * Community resources currently utilized None * Additional services required to return to the preadmission environment? No * Can the patient safely return to the preadmission environment? Yes * Has this patient been hospitalized within the prior 30 days at any hospital? Yes Coverage Notice Reviewer: [email or web address] - Bekah Colbert Notice Issued Date-Time: 03/24/2019 15:00 Notice Type: Patient Choice Letter Notice Delivered To: Patient Relationship to Patient: Self Cutter Grind Tool Technician Name: Delivery Method: - Mona Days: Prior Verbal Notification: Recipient Understood Notice: Recipient Signature: Med Rec Note Co-signed by Attending: Coverage Notice Comment: Last DP export: 03/25/19 10:53 a Patient Name: EDGARDO ANTHONY Page [phone] at 1201 All edits/amendments must be made on the electronic document DICTATION DATE: 03/25/19 1200 SALES SERVICE PROMOTER: ROSALINDA 03/25/19 1200 RPT#: [id number] DC DATE:03/24/19 STATUS: DIS IN [facility] [address] [place] [address] END OF REPORT
--- NOTE | 2019-03-25 12:16 | MORECARE ---
CASE MANAGEMENT DISCHARGE SUMMARY PATIENT: EDGARDO ANTHONY UNIT: [id number] ADM DATE: 03/22/19 AGE: 68 : 48 SEX: M ROOM/BED: D.[facility] AUTHOR: HILARY,DOC PHYSICIAN: REFERRING PHYSICIAN: MICHELE BISHOP MD DATE OF SERVICE: 03/25/19 Discharge Plan Patient Name: EDGARDO ANTHONY Facility: [facility]:[place] : 1950 Planned Disposition: Home Anticipated Discharge Date: Discharge Date: 03/24/2019 Expected LOS: Initial Reviewer: [email or web address] Initial Review Date: 03/24/2019 Generated: 03/25/19 1:16 pm Comments DCP- Discharge Planning Updated by [email or web address]: Bekah Colbert on 03/25/19 10:[address] LATE ENTRY 03/24/19 Patient Name: EDGARDO ANTHONY Admission Status: ER Accout number: [id number] Admission Date: 03-22-2019 : 1950 Admission Diagnosis: Attending: MICHELE BISHOP Current LOS: 2 Anticipated DC Date: Planned Disposition: Home Primary Insurance: MEDICARE A & B Discharge Planning Comments: CM met with patient at bedside after explaining CM role and obtaining verbal consent. Patient lives at home with his daughter Deirdre and plans to return there upon discharge. Patient states he isn't getting along with his so he is staying with his daughter. He states he plans on moving camper there to live in. Patient feels this would be a safe discharge. CM discussed availability / needs of home health and medical equipment. Patient is refusing home health and home nebulizer treatment. Patient signed JILLIAN refusal of services. Patient denies any discharge needs at this time. Patient states he will have his son n law drive him home upon discharge. CM will continue to follow and assist as needed with discharge planning / needs. Pointer Machine Operator: Bekah Colbert DCPIA - Discharge Planning Initial Assessment Updated by [email or web address]: Bekah Colbert on 03/25/19 11:50 am * Is the patient Alert and Oriented? Yes * How many steps to enter\exit or inside your home? * PCP DARIO * Pharmacy [facility] * Preadmission Environment Home with Family * ADLs Independent * Other Equipment WALKER, BSC * List name and contact numbers for known caregivers / representatives who currently or will assist patient after discharge: DEIRDRE SIM - DAUGHTER- [phone], [phone] SARA ANTHONY - - [phone] * Verbal permission to speak to the caregivers and representatives has been obtained from the patient. Yes * Community resources currently utilized None * Additional services required to return to the preadmission environment? No * Can the patient safely return to the preadmission environment? Yes * Has this patient been hospitalized within the prior 30 days at any hospital? Yes Coverage Notice Reviewer: [id number] - Bekah Colbert Notice Issued Date-Time: 03/24/2019 15:00 Notice Type: Patient Choice Letter Notice Delivered To: Patient Relationship to Patient: Self Accounts Manager Name: Delivery Method: HAND - Hand Delivered Mona Days: Prior Verbal Notification: Recipient Understood Notice: Yes Recipient Signature: Yes Med Rec Note Co-signed by Attending: Coverage Notice Comment: patient signed refusal of services for home health and nebulizer for updrafts Last DP export: 03/25/19 11:01 a Patient Name: EDGARDO ANTHONY Page [phone] at 1216 All edits/amendments must be made on the electronic document DICTATION DATE: 03/25/19 1215 AUTOMATIC PRESSER: ROSALINDA 03/25/19 1215 RPT#: [id number] DC DATE:03/24/19 STATUS: DIS IN [facility] [address] [place] [address] END OF REPORT
== END 2019-03-24 16:58 | disposition home or self-care (01) | DRG 268 ==
LOC: D.ER 21:47 → D.CVICU 03-22 00:41
PROVIDERS: Family Medicine; Thoracic Surgery (Cardiothoracic Vascular Surgery); ADMIT Family Medicine; ATTEND Family Medicine
PROC: 04V03DZ Restriction of Abdominal Aorta with Intraluminal Device, Percutaneous Approach (ICD-10-PCS; principal; 2019-03-22 11:00)
DX: I71.3 Abdominal aortic aneurysm, ruptured (principal); J18.9 Pneumonia, unspecified organism; J96.01 Acute respiratory failure with hypoxia; J95.821 Acute postprocedural respiratory failure; N18.4 Chronic kidney disease, stage 4 (severe); N17.9 Acute kidney failure, unspecified; K21.9 Gastro-esophageal reflux disease without esophagitis; I48.2 Chronic atrial fibrillation; I73.9 Peripheral vascular disease, unspecified; I10 Essential (primary) hypertension; Z45.018 Encounter for adjustment and management of other part of cardiac pacemaker; I12.9 Hypertensive chronic kidney disease with stage 1 through stage 4 chronic kidney disease, or unspecified chronic kidney disease; E11.22 Type 2 diabetes mellitus with diabetic chronic kidney disease; D72.829 Elevated white blood cell count, unspecified; R53.81 Other malaise; F17.200 Nicotine dependence, unspecified, uncomplicated; M19.90 Unspecified osteoarthritis, unspecified site; E66.01 Morbid (severe) obesity due to excess calories; J44.9 Chronic obstructive pulmonary disease, unspecified; Z68.38 Body mass index [BMI] 38.0-38.9, adult

== ENCOUNTER 2019-03-25 14:22 | Inpatient (IN) | payer MEDICARE, OTHER ==
[~2019-03-25] VITALS: Ht 193 cm; Wt 145.1 kg
[~2019-03-25 14:22] MED LIST changes: +AUGMENTIN 875-11 TAB PO; +HEMOCYTE PLUS C1 CAP PO; +IPRAT-ALBUT 0.5-3 ML UPD; +PULMICORT0.5 MG/21 UPD
[2019-03-25 15:00] VITALS: BP 172/68
[2019-03-25 15:16] LABS: BASOPHILS 0.4 % (0-2); EOSINOPHILS 0.1 % (0-7); HEMATOCRIT 31.5 % (42.0-54.0); HEMOGLOBIN 10.9 g/dL (13.5-17.5); IMMATURE GRANULOCYTES 5.3 % (0-5); LYMPHOCYTES 16.5 % (15-50); MCH 31.6 pg (26.0-34.0); MCHC 34.6 g/dL (31.0-37.0); MEAN PLATELET VOLUME 10.7 fL (7.4-10.4); MONOCYTES 15.8 % (2-11); NEUTROPHILS 61.9 % (40-80); PLATELET COUNT 172 10x3/uL (130-400); RBC 3.45 10x6/uL (4.20-6.10); RDW 17.1 % (11.5-14.5)
[2019-03-25 15:24] LABS: MCV 91.3 fL (80.0-100.0)
--- NOTE | 2019-03-25 15:35 | NUR ---
URINE SPECIMEN OBTAINED, LABELED AT BS AND SENT TO LAB
[2019-03-25 15:38] LABS: ALBUMIN 1.8 g/dL (3.4-5.0); ALKALINE PHOSPHATASE 406 U/L (46-116); ALT (SGPT) 93 U/L (10-68); BILIRUBIN - TOTAL 3.83 mg/dL (0.2-1.3); CALC OSMOLALITY 282 mosm/kg (275-300); CALCIUM 7.8 mg/dL (8.5-10.1); CARBON DIOXIDE 29.5 mmol/L (21.0-32.0); CHLORIDE - SERUM 102 mmol/L (98-107); CREATININE - SERUM 1.6 mg/dL (0.6-1.3); GLUCOSE 105 mg/dL (74-106); POTASSIUM - SERUM 4.3 mmol/L (3.5-5.1); PROTEIN - SERUM 5.5 g/dL (6.4-8.2); SODIUM 137 mmol/L (136-145); UREA NITROGEN 37 mg/dL (7-18); eGFR NON AFRICAN AMERICAN 46 mL/min (90-120)
[2019-03-25 15:49] LABS: APPEARANCE CLEAR (CLEAR); BILIRUBIN NEGATIVE (NEGATIVE); COLOR YELLOW (YELLOW); GLUCOSE NEGATIVE (NEGATIVE); KETONE NEGATIVE (NEGATIVE); NITRITE NEGATIVE (NEGATIVE); PROTEIN NEGATIVE (NEGATIVE); UROBILINOGEN NORMAL (NORMAL)
[2019-03-25 15:49] LABS: CKMB 2.2 U/L (0.0-3.6); CREATINE KINASE 190 UL (21-232); PRO BNP 4612 pg/mL (0-125); TROPONIN-I 0.033 ng/mL (0.000-0.060)
[2019-03-25 16:00] VITALS: BP 172/83
[2019-03-25 17:21] VITALS: BP 150/79
--- NOTE | 2019-03-25 18:00 | NUR ---
REPORT CALLED TO SCOTT MARCIAL BY SBAR FORMAT
[2019-03-25 18:10] VITALS: BP 166/77
--- NOTE | 2019-03-25 18:10 | NUR ---
TRANSPORTED TO ROOM #2139 VIA STRETCHER. CONDITION STABLE.
--- NOTE | 2019-03-25 18:10 | NUR ---
REPORT CALLED BY SCOTT VENTURA IN ER.
--- NOTE | 2019-03-25 18:30 | NUR ---
PT ARRIVED TO ROOM FROM ER. VITALS STABLE AT THIS TIME. PT ALERT AND ORIENTED X4 ON 2L OF O2. NO S/S OF DISTRESS AT THIS TIME. BED LOW CALL LIGHT WITHIN REACH WILL CONTINUE TO MONITOR.
[2019-03-25 20:00] VITALS: BP 163/69
--- NOTE | 2019-03-25 21:45 | NUR ---
EVENING ROUNDS COMPLETED. VSS WITH SBP 160'S. BP MEDS GIVEN ALONGSIDE ALL OTHER MEDICATIONS. GENERALIZED SWELLING NOTED. PT HAS PUT OUT 700CC'S SINCE SHIFT CHANGE. BUMEX INFUSING @ 5MLS/HR. PT FAMILY AT BEDSIDE, BROUGHT PT SOME SANDWICH. PT DENIES ANY FURTHER NEEDS AT THIS TIME. WILL CPOC.
[2019-03-25 23:57] VITALS: BP 163/69; BMI 39.0
[2019-03-26] VITALS: BP 151/64
[2019-03-26 04:15] VITALS: BP 177/85
[2019-03-26 07:02] LABS: BASOPHILS 0.3 % (0-2); EOSINOPHILS 0.4 % (0-7); HEMOGLOBIN 10.6 g/dL (13.5-17.5); IMMATURE GRANULOCYTES 6.6 % (0-5); LYMPHOCYTES 17.7 % (15-50); MCH 31.4 pg (26.0-34.0); MCHC 35.3 g/dL (31.0-37.0); MEAN PLATELET VOLUME 10.7 fL (7.4-10.4); MONOCYTES 17.8 % (2-11); NEUTROPHILS 57.2 % (40-80); PLATELET COUNT 184 10x3/uL (130-400); RBC 3.38 10x6/uL (4.20-6.10); RDW 16.6 % (11.5-14.5); WBC 9.5 10x3/uL (4.8-10.8)
[2019-03-26 07:05] LABS: INR 1.32 (0.85-1.17); PROTIME 15.9 SECONDS (11.6-15.0)
[2019-03-26 07:20] LABS: MCV 88.8 fL (80.0-100.0)
[2019-03-26 07:28] LABS: ANION GAP 8.8 mmol/L (8-16); CALCIUM 8.3 mg/dL (8.5-10.1); CARBON DIOXIDE 31.8 mmol/L (21.0-32.0); CREATININE - SERUM 1.3 mg/dL (0.6-1.3); MAGNESIUM - SERUM 1.1 mg/dL (1.8-2.4); POTASSIUM - SERUM 3.6 mmol/L (3.5-5.1); THYROID STIMULATING HORMONE 1.5 uIU/mL (0.36-3.74)
--- NOTE | 2019-03-26 07:40 | NUR ---
INITIAL ROUNDING ON THE PATIENT, PATIENT AWAKE AND MAKING CONSTANT NOISES, STATES HE DOES THIS TO REMIND HIMSELF HE IS STILL ALIVE. URINALS EMPTIED AT THIS TIME. ROOM CLEANED OF CLUTTER, O2 VIA NC IN PLACE, PATIENT DENIES PAIN, CALL LIGTH IN REACH, 2 URNIALS AT BEDSIDE
[2019-03-26 08:05] LABS: ALBUMIN 1.8 g/dL (3.4-5.0); BILIRUBIN - DIRECT 2.62 mg/dL (0.00-0.30); BILIRUBIN - INDIRECT 1.49 mg/dL (0.00-1.00); BILIRUBIN - TOTAL 4.11 mg/dL (0.2-1.3); PROTEIN - SERUM 5.6 g/dL (6.4-8.2)
--- NOTE | 2019-03-26 08:13 | NUR ---
SPOKE TO ISAK IN THE PHARMACY REQUESTING THE MISSING HEMOCYTE
[2019-03-26 08:48] VITALS: BP 146/74
--- NOTE | 2019-03-26 11:38 | NUR ---
THE PATIENTS SPOUSE IS AT THE BEDSIDE, SHE IS ASKING TO "GIVE ME REORTS IF I AM AN ICU NURSE, STAFF TO STAFF, I WANT TO KNOW ALL, I MEAN ALL INCLUDING LAB RESULTS, CONSULTS, WHAT THE DOCTORS HAVE SAID, TESTS COMPLETED AND RESULTS AND ADMITTING DX" IT WAS EXPLAINED THAT THIS NURSE WOULD COME BACK AFTER THE CURRENT MED PASS AND GO OVE THE CHART WITH HER, SHE THEN ASKED "WHAT MEDICATIONS DID HE TAKE THIS MORNING", MY RESPONE WAS, I WILL GO OVER THAT WHEN I COME BACK.
[2019-03-26 14:22] VITALS: Ht 193 cm; Wt 145.1 kg
[2019-03-26 15:57] VITALS: BP 124/55
[2019-03-26 20:00] VITALS: BP 145/86
--- NOTE | 2019-03-26 20:10 | NUR ---
EVENINGN ROUNDS COMPLETED. AAOX3, NO S/S OF DISTRESS. PT VOICED HIS FRUSTRATION ABOUT URINATING A LOT. EDUCTAE PT THAT HE IS GETTING BUMETADINE AT THIS TIME AND IT WILL MAKE HIM "PEE" FREQUENTLY. PT SPOUSE AT BEDSIDE. PT LEGS APPEARS SCALY AND DRY. A-FIB ON TELE. 2 URINALS @ BEDSIDE. DENIES ANY FUTHER NEEDS AT THIS TIME. WILL CTM.
[2019-03-26 23:30] VITALS: BP 139/82
[2019-03-27 04:30] VITALS: BP 144/79
[2019-03-27 04:51] LABS: HEMATOCRIT 30.7 % (42.0-54.0); HEMOGLOBIN 10.7 g/dL (13.5-17.5); MCH 31.2 pg (26.0-34.0); MCHC 34.9 g/dL (31.0-37.0); MCV 89.5 fL (80.0-100.0); MEAN PLATELET VOLUME 10.7 fL (7.4-10.4); PLATELET COUNT 190 10x3/uL (130-400); RBC 3.43 10x6/uL (4.20-6.10); RDW 16.7 % (11.5-14.5); WBC 8.6 10x3/uL (4.8-10.8)
[2019-03-27 04:56] LABS: INR 1.3 (0.85-1.17); PROTIME 15.6 SECONDS (11.6-15.0)
[2019-03-27 06:51] LABS: ALBUMIN 1.9 g/dL (3.4-5.0); ANION GAP 6.6 mmol/L (8-16); BILIRUBIN - DIRECT 2.38 mg/dL (0.00-0.30); BILIRUBIN - INDIRECT 1.27 mg/dL (0.00-1.00); BILIRUBIN - TOTAL 3.65 mg/dL (0.2-1.3); CALCIUM 8.3 mg/dL (8.5-10.1); CARBON DIOXIDE 38.9 mmol/L (21.0-32.0); CREATININE - SERUM 1.4 mg/dL (0.6-1.3); PHOSPHOROUS 3.3 mg/dL (2.5-4.9); POTASSIUM - SERUM 3.5 mmol/L (3.5-5.1); PROTEIN - SERUM 5.7 g/dL (6.4-8.2)
[2019-03-27 08:55] LABS: ANISOCYTOSIS OCC; BASOPHILS 1 % (0-2); HYPOCHROMASIA OCC; LYMPHOCYTES 17 % (15-50); MONOCYTES 18 % (2-11); NEUTROPHILS 64 % (40-80); PLATELET ESTIMATE NORMAL
[2019-03-27 08:58] VITALS: BP 121/60
--- NOTE | 2019-03-27 12:05 | NUR ---
REHAB PRESCREENING Referral received and chart reviewed. Physical Therapy evaluation is pending. Rehab will follow this patient for assessment of admission criteria. Thank you for this referral! Hali Wilkes, INTEGRITY MANAGER Rehab PD
[2019-03-27 12:30] VITALS: BP 133/68
--- NOTE | 2019-03-27 16:16 | MORECARE ---
CASE MANAGEMENT DISCHARGE SUMMARY PATIENT: EDGARDO ANTHONY UNIT: [id number] ADM DATE: 03/25/19 AGE: 68 : 48 SEX: M ROOM/BED: D.2139 AUTHOR: KAREEN RICHARD PHYSICIAN: REFERRING PHYSICIAN: MICHELE BISHOP MD DATE OF SERVICE: 03/27/19 Discharge Plan Patient Name: EDGARDO ANTHONY [facility] [facility] 1950 Planned Disposition: Inpatient Rehab Anticipated Discharge Date: Discharge Date: Expected LOS: Initial Reviewer: [email or web address] Initial Review Date: 03/27/2019 Generated: 03/27/19 5:16 pm Patient Name: EDGARDO ANTHONY Page [phone] at 1616 All edits/amendments must be made on the electronic document DICTATION DATE: 03/27/195 IT ACCOUNT MANAGER: ROSALINDA 03/27/195 RPT#: [id number] OR DATE: STATUS: ADM IN [facility] [address] [place] [address] END OF REPORT
[2019-03-27 16:30] VITALS: BP 126/69
--- NOTE | 2019-03-27 16:37 | MORECARE ---
CASE MANAGEMENT DISCHARGE SUMMARY PATIENT: EDGARDO ANTHONY UNIT: [id number] ADM DATE: 03/25/19 AGE: 68 : 48 SEX: M ROOM/BED: D.4569 AUTHOR: HILARY,DOC PHYSICIAN: REFERRING PHYSICIAN: MICHELE BISHOP MD DATE OF SERVICE: 03/27/19 Discharge Plan Patient Name: EDGARDO ANTHONY [facility] [facility] 1950 Planned Disposition: Inpatient Rehab Anticipated Discharge Date: Discharge Date: Expected LOS: Initial Reviewer: [id number] Initial Review Date: 03/27/2019 Generated: 03/27/19 5:36 pm Comments DCP- Discharge Planning Updated by [id number]: Jeff Mejía on 03/27/19 3:[address] Patient Name: EDGARDO ANTHONY Admission Status: ER Accout number: [id number] Admission Date: 03-25-2019 : 1950 Admission Diagnosis:OTHER SPECIFIED ABNORMAL FINDINGS OF BLOOD CHEMISTRY Attending: MICHELE BISHOP Current LOS: 2 Anticipated DC Date: Planned Disposition: Inpatient Rehab Primary Insurance: MEDICARE A & B PLANNED EXTERNAL PROVIDER: [facility] Discharge Planning Comments: CM RECEIVED ORDER FOR INPATIENT REHAB PRESCREENING. CM MET WITH PT AND SPOUSE IN ROOM TO DISCUSS DISCHARGE PLANNING AND NEEDS. EDGARDO ANTHONY provided verbal consent to discuss current and ongoing needs with/in the presence of: SPOUSE, OMERO. PT REPORTS LIVING AT HOME INDEPENDENTLY WITH HIS . PT HAS NO MEDICAL EQUIPMENT AND NO OUTSIDE SERVICES ASSISTING IN THE HOME. CM DISCUSSED AVAILABILITY OF HOME HEALTH, REHAB SERVICES AND MEDICAL EQUIPMENT. PT WIHAS BEEN TO [facility] IN THE PAST AND WOULD LIKE REHAB THERE BEFORE RETURNING HOME. PT'S AGREES, STATES PT WAS IN A HURRY TO LEAVE THE HOSPITAL LAST TIME AND ENDED UP RIGHT BACK. PT REPORTS HIS WILL PICK HIM UP FOR DISCHARGE HOME. CM WAITING INPATIENT REHAB PRESCREENING RESULT AND ADMISSION DETEMINATION FROM [facility]. Museum Guide: Jeff Mejía DCPIA - Discharge Planning Initial Assessment Updated by [id number]: Jeff Mejía on 03/27/19 4:16 pm * Is the patient Alert and Oriented? Yes * How many steps to enter\exit or inside your home? 1-0 / 3-I * PCP DR. BISHOP * Pharm[facility] * Preadmission Environment Home with Family * ADLs Independent * Equipment None * Other Equipment NO MEDICAL EQUIPMENT PROVIDER PREFERENCE * List name and contact numbers for known caregivers / representatives who currently or will assist patient after discharge: OMERO ANTHONY, SPOUSE, * Verbal permission to speak to the caregivers and representatives has been obtained from the patient. Yes * Community resources currently utilized None * Please name any agencies selected above. NONE * Additional services required to return to the preadmission environment? Yes * Can the patient safely return to the preadmission environment? Yes * Has this patient been hospitalized within the prior 30 days at any hospital? Yes Last DP export: 03/27/19 3:16 pm Patient Name: EDGARDO ANTHONY Page 74020 at 1637 All edits/amendments must be made on the electronic document DICTATION DATE: 03/27/19 163 SOLAR SYSTEMS DESIGNER: ROSALINDA 03/27/19 163 RPT#: [id number] DC DATE: STATUS: ADM IN [facility] [address] [place] [address] END OF REPORT
--- NOTE | 2019-03-27 17:55 | NUR ---
I have reviewed this patient and I concur with the Shift Assessment completed by the Licensed Practical Nurse today this shift.
--- NOTE | 2019-03-27 19:30 | NUR ---
RECEIVED PT. A&O. RR EVEN AND UNLABORED. DENIES NEEDS AT THIS TIME. NO S/S OF DISTRESS NOTED. VOICES NO C/O OR CONCERNS AT THIS TIME. WILL CPOC.
[2019-03-27 20:00] VITALS: BP 118/78
[2019-03-28] VITALS (7 sets, daily range): BP systolic 107–140; BP diastolic 63–72
[2019-03-28 06:36] LABS: ALBUMIN 1.8 g/dL (3.4-5.0); ANION GAP 3.6 mmol/L (8-16); BILIRUBIN - TOTAL 3.25 mg/dL (0.2-1.3); CALCIUM 7.7 mg/dL (8.5-10.1); CREATININE - SERUM 1.5 mg/dL (0.6-1.3); PHOSPHOROUS 3.3 mg/dL (2.5-4.9); POTASSIUM - SERUM 3.6 mmol/L (3.5-5.1); PROTEIN - SERUM 5.5 g/dL (6.4-8.2)
[2019-03-28 06:56] LABS: MAGNESIUM - SERUM 0.9 mg/dL (1.8-2.4)
[2019-03-28 07:09] LABS: HEMOGLOBIN 11.4 g/dL (13.5-17.5); MCHC 35.6 g/dL (31.0-37.0); MCV 89.9 fL (80.0-100.0); MEAN PLATELET VOLUME 11.1 fL (7.4-10.4); PLATELET COUNT 186 10x3/uL (130-400); RBC 3.56 10x6/uL (4.20-6.10); RDW 16.8 % (11.5-14.5); WBC 8.5 10x3/uL (4.8-10.8)
--- NOTE | 2019-03-28 07:30 | NUR ---
REPORT RECIEVED. PT ALERT AND ORIENTED SITTING UP IN BED. R AC PIV INFUSING BUMEX @5. RR EVEN AND UNLABORED. NO DISTRESS NOTED. PT CURRENTLY ON TELEMETRY. BED IN LOWEST POSITION. CALL LIGHT WIHING REACH. WILL CTM
--- NOTE | 2019-03-28 09:18 | NUR ---
REHAB PRESCREENING This patient is a good candidate for acute inpatient rehab. Will plan to accept this patient when his physician feels he is appropriate to discharge. Thank you for this referral! Hali Wilkes, REAL ESTATE INVESTOR Rehab PD
[2019-03-28 10:16] LABS: BASOPHILS 1 % (0-2); EOSINOPHILS 1 % (0-7); HYPOCHROMASIA OCC; LYMPHOCYTES 21 % (15-50); MONOCYTES 26 % (2-11); NEUTROPHILS 48 % (40-80); PLATELET ESTIMATE NORMAL; ROULEAUX OCC
--- NOTE | 2019-03-28 13:00 | MORECARE ---
CASE MANAGEMENT DISCHARGE SUMMARY PATIENT: EDGARDO ANTHONY UNIT: [id number] ADM DATE: 03/25/19 AGE: 68 : 48 SEX: M ROOM/BED: D.2139 AUTHOR: HILARY,DOC PHYSICIAN: REFERRING PHYSICIAN: MICHELE BISHOP MD DATE OF SERVICE: 03/28/19 Discharge Plan Patient Name: EDGARDO ANTHONY Facility: [facility]:[place] : 1950 Planned Disposition: Inpatient Rehab Anticipated Discharge Date: Discharge Date: Expected LOS: Initial Reviewer: [id number] Initial Review Date: 03/27/2019 Generated: 03/28/19 2:00 pm Comments DCP- Discharge Planning Updated by [id number]: Jeff Mejía on 03/28/19 11:[address] Patient Name: EDGARDO ANTHONY Encounter No: [id number] : 1950 Primary Insurance: MEDICARE A & B Anticipated DC Date: Planned Disposition: Inpatient Rehab External Planned Provider: [facility] DCP follow-up note: CM SPOKE TO JESSICA OF INPATIENT REHAB, THEY PLAN TO ACCEPT PT WHEN MEDICALLY STABLE FOR REHAB AND CAN ACCEPT TODAY. CM CALLED DR. BISHOP WHO INFORMED CM TO CHECK WITH DR. CERON. CM CALLED DR. CERON WHO INFORMED CM THAT PT IS NOT MEDICALLY STABLE FOR DISCHARGE TO REHAB. PT NOTIFIED, IN AGREEMENT WITH DISCHARGE TO INPATIENT REHAB WHEN STABLE. IMPORTANT MESSAGE FROM MEDICARE PROVIDED AND EXPLAINED. WHEN READY TO DISCHARGE TO REHAB, [facility] WHO WILL THEN CONTACT [facility] NURSE WITH ROOM NUMBER WHEN READY TO ACCEPT PT AND NURSE REPORT. . Jeff Mejía CASE MANAGEMENT DCP- Discharge Planning Updated by [id number]: Jeff Mejía on 03/27/19 3:[address] Patient Name: EDGARDO ANTHONY Admission Status: ER Accout number: [id number] Admission Date: 03-25-2019 : 1950 Admission Diagnosis:OTHER SPECIFIED ABNORMAL FINDINGS OF BLOOD CHEMISTRY Attending: MICHELE BISHOP Current LOS: 2 Anticipated DC Date: Planned Disposition: Inpatient Rehab Primary Insurance: MEDICARE A & B PLANNED EXTERNAL PROVIDER: [facility] Discharge Planning Comments: CM RECEIVED ORDER FOR INPATIENT REHAB PRESCREENING. CM MET WITH PT AND SPOUSE IN ROOM TO DISCUSS DISCHARGE PLANNING AND NEEDS. EDGARDO ANTHONY provided verbal consent to discuss current and ongoing needs with/in the presence of: SPOUSE, OMERO. PT REPORTS LIVING AT HOME INDEPENDENTLY WITH HIS . PT HAS NO MEDICAL EQUIPMENT AND NO OUTSIDE SERVICES ASSISTING IN THE HOME. CM DISCUSSED AVAILABILITY OF HOME HEALTH, REHAB SERVICES AND MEDICAL EQUIPMENT. PT WIHAS BEEN TO [facility] IN THE PAST AND WOULD LIKE REHAB THERE BEFORE RETURNING HOME. PT'S AGREES, STATES PT WAS IN A HURRY TO LEAVE THE HOSPITAL LAST TIME AND ENDED UP RIGHT BACK. PT REPORTS HIS WILL PICK HIM UP FOR DISCHARGE HOME. CM WAITING INPATIENT REHAB PRESCREENING RESULT AND ADMISSION DETEMINATION FROM [facility]. Talent Development Specialist: Jeff Mejía DCPIA - Discharge Planning Initial Assessment Updated by [id number]: Jeff Mejía on 03/27/19 4:16 pm * Is the patient Alert and Oriented? Yes * How many steps to enter\exit or inside your home? 1-0 / 3-I * PCP DR. BISHOP * Pharm[facility] * Preadmission Environment Home with Family * ADLs Independent * Equipment None * Other Equipment NO MEDICAL EQUIPMENT PROVIDER PREFERENCE * List name and contact numbers for known caregivers / representatives who currently or will assist patient after discharge: OMERO ANTHONY, SPOUSE, * Verbal permission to speak to the caregivers and representatives has been obtained from the patient. Yes * Community resources currently utilized None * Please name any agencies selected above. NONE * Additional services required to return to the preadmission environment? Yes * Can the patient safely return to the preadmission environment? Yes * Has this patient been hospitalized within the prior 30 days at any hospital? Yes Coverage Notice Reviewer: [id number] - Jeff Mejía Notice Issued Date-Time: 03/28/2019 12:45 Notice Type: IM Discharge Notice Notice Delivered To: Patient Relationship to Patient: Laser Cutter Name: Delivery Method: HAND - Hand Delivered Mona Days: Prior Verbal Notification: Recipient Understood Notice: Yes Recipient Signature: Yes Med Rec Note Co-signed by Attending: Coverage Notice Comment: Last DP export: 03/27/19 3:37 pm Patient Name: EDGARDO ANTHONY Page [id number] at 1300 All edits/amendments must be made on the electronic document DICTATION DATE: 03/28/19 1300 RN TESTING: ROSALINDA 03/28/19 1300 RPT#: [id number] DC DATE: STATUS: ADM IN [facility] [address] [place] [address] END OF REPORT
--- NOTE | 2019-03-28 15:20 | NUR ---
I have reviewed this patient and I concur with the Shift Assessment completed by the Licensed Practical Nurse today this shift.
--- NOTE | 2019-03-28 19:26 | NUR ---
PAGED DR. BISHOP- PT ASKING FOR ALYSSA
--- NOTE | 2019-03-28 19:30 | NUR ---
DR. BISHOP CALLED BACK. SAID TO ORDER AMBIEM 5MG
--- NOTE | 2019-03-29 03:35 | NUR ---
I have reviewed this patient and I concur with the Shift Assessment completed by the Licensed Practical Nurse today this shift.
[2019-03-29 04:30] VITALS: BP 110/64
[2019-03-29 05:32] LABS: ALBUMIN 1.7 g/dL (3.4-5.0); ANION GAP 5.4 mmol/L (8-16); BILIRUBIN - DIRECT 1.88 mg/dL (0.00-0.30); BILIRUBIN - INDIRECT 0.79 mg/dL (0.00-1.00); BILIRUBIN - TOTAL 2.67 mg/dL (0.2-1.3); CALCIUM 7.8 mg/dL (8.5-10.1); CARBON DIOXIDE 38.3 mmol/L (21.0-32.0); CREATININE - SERUM 1.8 mg/dL (0.6-1.3); MAGNESIUM - SERUM 1.7 mg/dL (1.8-2.4); PHOSPHOROUS 3.1 mg/dL (2.5-4.9); POTASSIUM - SERUM 3.7 mmol/L (3.5-5.1); PROTEIN - SERUM 5.6 g/dL (6.4-8.2)
[2019-03-29 09:02] VITALS: BP 94/56
[2019-03-29 11:54] VITALS: BP 101/61
--- NOTE | 2019-03-29 12:54 | NUR ---
NUTRITION F/U RECEIVED CONSULT RE:HYPOALBUMINEMIA. PT CURRENTLY ON 1000 CC FLUID RESTRICTION. DISCUSSED PROTEIN SUPPLEMENTS, PT DECLINES AT THIS TIME. IF MEDICALLY APPROPRIATE, PT MAY BENEFIT FROM LOW DOSE IV ALBUMIN. RD FOLLOWING
--- NOTE | 2019-03-29 14:23 | NUR ---
I have reviewed this patient and I concur with the Shift Assessment completed by the Licensed Practical Nurse today this shift.
[2019-03-29 16:31] VITALS: BP 125/54
--- NOTE | 2019-03-29 17:45 | NUR ---
C/O PAIN IN HIS ARM FROM IV, IT HAD SOME REDNESS ABOVE THE SITE BUT STILL HAD BLOOD RETURN. IV RESITED TO LEFT HAND X1 STICK WITH 22 GUAGE, OLD SITE D/C WITH CATH TIP INTACT AND NO BLEEDING NOTED. HE DENIES ANY OTHER C/O. HE HAS HAD SOME HAND CRAMPS ON AND OFF AND C/O JOCK ITCH BUT HIS GROIN WAS CLEAR TO ME. I DID PAGE DR BISHOP TO LET HIM KNOW.
--- NOTE | 2019-03-29 19:45 | NUR ---
INITIAL ROUNDS COMPLETED. PT RESTING IN BED. RT IN ROOM DOING BREATHING TREATMENT.
--- NOTE | 2019-03-29 19:50 | NUR ---
PHONE CALL FROM PT'S WITH C/O LACK OF FOLLOW UP ON PT'S EXCRUTIATING PAIN IN HIS FINGERS/HANDS. DEMANDING THAT MD BE CALLED NOW. ATTEMPTED TO EXPLAIN THAT SEVERAL PAGES HAD BEEN MADE TO DR BISHOP BY DAY NURSE AND NO RETURN CALL AT THIS POINT. INTERUPTED NURSE MULTIPLE TIMES, TOLD NURSE THAT SHE WAS A CREDENTIALED [facility] CHARGE NURSE AND SHE WAS DEMANDING THAT A DOCTOR GIVE ORDERS FOR HER EXCRUTIATING HAND PAIN NOW. SHE ALSO SAID FOR NURSE TO "STOP MAKING EXCUSES". ALL ATTEMPTS TO FACILITATE A PRODUCTIVE CONVERSATION WITH THE WERE MET WITH REMARKS REGARDING HER KNOWLEDGE OF HOW THINGS SHOULD BE DONE AND THAT THIS NURSE "BETTER GET IN TOUCH WITH A DOCTOR NOW". ALSO SAYING THAT IF PT WAS GIVEN QUININE THIS WHOLE ISSUE COULD BE TAKEN CARE OF BUT THAT NO ONE SEEMS TO BE ABLE TO DO ANYTHING CORRECTLY. DEMANDED TO SPEAK WITH NEXT LEVEL UP FROM PATIENT'S NURSE AND WHEN TOLD THAT THIS NURSE WAS ALSO THE CHARGE NURSE, SHE THEN DEMANDED TO SPEAK WITH THE EVENT SALES REPRESENTATIVE. ATTEMPTED TO TRANSFER TO EVENT SALES REPRESENTATIVE BUT PHONE WAS BUSY. INFORMED THAT PHONE WAS CURRENTLY BUSY AND AT THAT POINT, SPOUSE HUNG UP PHONE. NOTIFIED EVENT SALES REPRESENTATIVE, MIRI, OF ABOVE PHONE CALL FROM PATIENT'S .
[2019-03-29 20:00] VITALS: BP 130/73
--- NOTE | 2019-03-29 20:15 | NUR ---
RETURNED TO PT'S ROOM AFTER REVIEWING HIS MEDICATIONS AND ASSESSED HIM. ASKED HIM TO DESCRIBE THE PAIN HE IS EXPERIENCING IN HIS FINGERS. PT IS PLEASANT TO TALK WITH AND AGREED TO TAKE A NORCO TO SEE IF IT HELPS WITH THE PAIN. MEDS OBTAINED AND WHEN BACK IN ROOM. ROUNDS WERE MADE BY DR BISHOP. HE WAS MADE AWARE OF PT'S FINGER CRAMPS/SPASMS AND THAT SPOUSES IS WANTING PT TO TAKE QUININE. DR BISHOP STATES THERE IS BETTER MEDICATIONS TO TRY AND NEW ORDERS HAVE BEEN WRITTEN.
[2019-03-30] VITALS: BP 113/72
[2019-03-30 04:00] VITALS: BP 113/81
--- NOTE | 2019-03-30 04:35 | NUR ---
PT VOIDING PER URINAL FOR STRICT INTAKE/OUTPUT. UP TO BATHROOM TO HAVE BM. BACK TO BED. STATES HIS FINGERS/HANDS ARE FEELING BETTER AND HIS ONLY NEED AT THIS TIME TO TO WARM UP HIS ROOM. TEMP ADJUSTED AND ADDITIONAL BLANKET PROVIDED.
[2019-03-30 05:25] LABS: ALBUMIN 1.8 g/dL (3.4-5.0); ANION GAP 10.1 mmol/L (8-16); BILIRUBIN - DIRECT 1.99 mg/dL (0.00-0.30); BILIRUBIN - INDIRECT 0.68 mg/dL (0.00-1.00); BILIRUBIN - TOTAL 2.67 mg/dL (0.2-1.3); CALCIUM 7.6 mg/dL (8.5-10.1); CARBON DIOXIDE 34.8 mmol/L (21.0-32.0); CREATININE - SERUM 1.7 mg/dL (0.6-1.3); MAGNESIUM - SERUM 1.4 mg/dL (1.8-2.4); POTASSIUM - SERUM 3.9 mmol/L (3.5-5.1); PROTEIN - SERUM 5.7 g/dL (6.4-8.2)
--- NOTE | 2019-03-30 06:30 | NUR ---
A/A/OX4. SITTING UP IN BED WATCHING TV. DENIES ANY PAIN AT THIS TIME AND VOICES NO REQUESTS. ASSESSMENT COMPLTED AND WILL CONTINUE POC.
--- NOTE | 2019-03-30 07:45 | NUR ---
A/A/OX4. SITTING UP IN BED WATCHING TV AND DENIES ANY PAIN AT PRESENT TIME WITH NO REQUESTS VOICED. LOW MAG LEVEL AND FIRST IV MAG HUNG TO INFUSE. ASSESSMENT COMPLETED AND WILL CONTINUE PLAN OF CARE. BED IN LOWEST LOCKED POSITION AND CALL LIGHT IN REACH.
--- NOTE | 2019-03-30 08:42 | NUR ---
IV INFILTRATED AND WAS DC'D. RESTARTED IN RIGHT HAND WITH 22G X 1 ATTEMPT. PT TOLERATED WELL. IV NOW INFUSING WELL
[2019-03-30 09:21] VITALS: BP 135/71
[2019-03-30 13:24] VITALS: BP 131/68
--- NOTE | 2019-03-30 14:24 | NUR ---
I have reviewed this patient and I concur with the Shift Assessment completed by the Licensed Practical Nurse today this shift.
[2019-03-30 15:56] VITALS: BP 105/62
--- NOTE | 2019-03-30 19:36 | NUR ---
EVENING ROUNDS COMPLETED. REPORT RECEIVED. PT SITTING UP IN BED WITH EYES OPEN, RR EVEN AND UNLABORED. OXYGEN AT 2 LITERS BY NASAL CANNULA. BED IN LOW POSITION. NO S/S OF DISTRESS NOTED. 77 CONTROLLED AFIB ON TELEMETRY. INTRODUCED SELF TO PT. TURNED UP THE TEMPERATURE IN ROOM PER PT REQUEST. 300 MLS NILS COLORED OUTPUT EMPTIED FROM PT URINAL. PT DENIES FURTHER NEEDS AT THIS TIME. CALL LIGHT IN REACH. WILL CTM.
[2019-03-30 20:20] VITALS: BP 140/77
[2019-03-31] VITALS: BP 111/64
--- NOTE | 2019-03-31 00:42 | NUR ---
ADMINISTERED ORDERED ANALGESIC FOR COMPLAINTS OF PAIN IN BACK, PT STATES PAIN OF A 9 ON A SCALE OF 0-10.
--- NOTE | 2019-03-31 03:26 | NUR ---
ADMINISTERED ORDERED ANALGESIC FOR PT COMPLAINTS OF PAIN IN BACK, PT STATES PAIN IS A 9 ON A SCALE OF 0-10.
[2019-03-31 04:00] VITALS: BP 126/64
[2019-03-31 05:44] LABS: ALBUMIN 1.6 g/dL (3.4-5.0); ANION GAP 6.5 mmol/L (8-16); BILIRUBIN - DIRECT 1.82 mg/dL (0.00-0.30); BILIRUBIN - INDIRECT 0.57 mg/dL (0.00-1.00); BILIRUBIN - TOTAL 2.39 mg/dL (0.2-1.3); CALCIUM 7.4 mg/dL (8.5-10.1); CARBON DIOXIDE 35.6 mmol/L (21.0-32.0); CREATININE - SERUM 1.7 mg/dL (0.6-1.3); MAGNESIUM - SERUM 1.4 mg/dL (1.8-2.4); PHOSPHOROUS 2.5 mg/dL (2.5-4.9); POTASSIUM - SERUM 4.1 mmol/L (3.5-5.1); PROTEIN - SERUM 5.3 g/dL (6.4-8.2)
--- NOTE | 2019-03-31 07:05 | NUR ---
PT RESTING UPRIGHT IN BED UPON ENTERING EATING BREAKFAST. ALERT AND ORIENTED X3, DENIES ANY NEEDS AT THIS TIME. BED IN LOWEST POSITION, BED RAILS X2, CALL LIGHT WITHIN REACH. WILL CONTINUE TO MONITOR.
[2019-03-31 08:30] VITALS: BP 132/54
[2019-03-31] MEDS ORDERED: METOPROLOL TART50 MG PO (09:20)
[2019-03-31] MEDS ORDERED: BUMEX2 MG PO (09:21)
[2019-03-31] MEDS ORDERED: K-TAB10 MEQ PO (09:22)
[2019-03-31] MEDS ORDERED: LAC-HYDRIN 5226 ML TOPICAL (09:23)
[2019-03-31] MEDS ORDERED: PROTONIX40 MG PO (09:23)
[2019-03-31] MEDS ORDERED: MAG-OX 400 MG400 MG PO (09:23)
--- NOTE | 2019-03-31 09:40 | NUR ---
ADMINISTERED MORNING MEDICATION AT THIS TIME. NO TROUBLE SWALLOWING. TOPICAL OINTMENT APPLIED TO FEET. DENIES ANY NEEDS AT THIS TIME. BED IN LOWEST POSITION, BED RAILS X2, CALL LIGHT WITHIN REACH. WILL CONTINUE TO MONITOR.
--- NOTE | 2019-03-31 10:02 | MORECARE ---
CASE MANAGEMENT DISCHARGE SUMMARY PATIENT: EDGARDO ANTHONY UNIT: [id number] ADM DATE: 03/25/19 AGE: 68 : 48 SEX: M ROOM/BED: D.2139 AUTHOR: HILARY,DOC PHYSICIAN: REFERRING PHYSICIAN: MICHELE BISHOP MD DATE OF SERVICE: 03/31/19 Discharge Plan Patient Name: EDGARDO ANTHONY Facility: [facility]:[place] : 1950 Planned Disposition: Inpatient Rehab Anticipated Discharge Date: 03/31/19 Discharge Date: Expected LOS: 6 Initial Reviewer: [id number] Initial Review Date: 03/27/2019 Generated: 03/31/19 11:02 am Comments DCP- Discharge Planning Updated by [id number]: Jeff Mejía on 03/31/19 9:[address] Patient Name: EDGARDO ANTHONY Encounter No: [id number] : 1950 Primary Insurance: MEDICARE A & B Anticipated DC Date: 03-31-2019 Planned Disposition: Inpatient Rehab External Planned Provider: [facility] DCP follow-up note: CM SPOKE TO DR. BISHOP WHO INFORMED CM THAT PT WILL DISCHARGE TO REHAB TODAY. PT NOTIFIED, IN AGREEMENT WITH DISCHARGE TO INPATIENT REHAB WHEN STABLE. IMPORTANT MESSAGE FROM MEDICARE PROVIDED AND EXPLAINED. CM NOTIFIED INPATIENT REHAB OF DISCHARGE ORDER; [facility] WILL CONTACT MED 2 NURSE WITH ROOM NUMBER WHEN READY TO ACCEPT PT AND NURSE REPORT. . KITA Salgado DCP- Discharge Planning Updated by [id number]: Jeff Mejía on 03/28/19 11:[address] Patient Name: EDGARDO ANTHONY Encounter No: [id number] : 1950 Primary Insurance: MEDICARE A & B Anticipated DC Date: Planned Disposition: Inpatient Rehab External Planned Provider: [facility] DCP follow-up note: CM SPOKE TO JESSICA OF INPATIENT REHAB, THEY PLAN TO ACCEPT PT WHEN MEDICALLY STABLE FOR REHAB AND CAN ACCEPT TODAY. CM CALLED DR. BISHOP WHO INFORMED CM TO CHECK WITH DR. CERON. CM CALLED DR. CERON WHO INFORMED CM THAT PT IS NOT MEDICALLY STABLE FOR DISCHARGE TO REHAB. PT NOTIFIED, IN AGREEMENT WITH DISCHARGE TO INPATIENT REHAB WHEN STABLE. IMPORTANT MESSAGE FROM MEDICARE PROVIDED AND EXPLAINED. WHEN READY TO DISCHARGE TO REHAB, [facility] WHO WILL THEN CONTACT MED 2 NURSE WITH ROOM NUMBER WHEN READY TO ACCEPT PT AND NURSE REPORT. . Jeff Mejía, CASE MANAGEMENT DCP- Discharge Planning Updated by [id number]: Jeff Mejía on 03/27/19 3:[address] Patient Name: EDGARDO ANTHONY Admission Status: ER Accout number: [id number] Admission Date: 03-25-2019 : 1950 Admission Diagnosis:OTHER SPECIFIED ABNORMAL FINDINGS OF BLOOD CHEMISTRY Attending: MICHELE BISHOP Current LOS: 2 Anticipated DC Date: Planned Disposition: Inpatient Rehab Primary Insurance: MEDICARE A & B PLANNED EXTERNAL PROVIDER: [facility] Discharge Planning Comments: CM RECEIVED ORDER FOR INPATIENT REHAB PRESCREENING. CM MET WITH PT AND SPOUSE IN ROOM TO DISCUSS DISCHARGE PLANNING AND NEEDS. EDGARDO ANTHONY provided verbal consent to discuss current and ongoing needs with/in the presence of: SPOUSE, OMERO. PT REPORTS LIVING AT HOME INDEPENDENTLY WITH HIS . PT HAS NO MEDICAL EQUIPMENT AND NO OUTSIDE SERVICES ASSISTING IN THE HOME. CM DISCUSSED AVAILABILITY OF HOME HEALTH, REHAB SERVICES AND MEDICAL EQUIPMENT. PT WIHAS BEEN TO [facility] IN THE PAST AND WOULD LIKE REHAB THERE BEFORE RETURNING HOME. PT'S AGREES, STATES PT WAS IN A HURRY TO LEAVE THE HOSPITAL LAST TIME AND ENDED UP RIGHT BACK. PT REPORTS HIS WILL PICK HIM UP FOR DISCHARGE HOME. CM WAITING INPATIENT REHAB PRESCREENING RESULT AND ADMISSION DETEMINATION FROM [facility]. Clinic Physician Director: Jeff Mejía DCPIA - Discharge Planning Initial Assessment Updated by [id number]: Jeff Mejía on 03/27/19 4:16 pm * Is the patient Alert and Oriented? Yes * How many steps to enter\exit or inside your home? 1-0 / 3-I * PCP DR. BISHOP * Pharm[facility] * Preadmission Environment Home with Family * ADLs Independent * Equipment None * Other Equipment NO MEDICAL EQUIPMENT PROVIDER PREFERENCE * List name and contact numbers for known caregivers / representatives who currently or will assist patient after discharge: OMERO ANTHONY, SPOUSE, * Verbal permission to speak to the caregivers and representatives has been obtained from the patient. Yes * Community resources currently utilized None * Please name any agencies selected above. NONE * Additional services required to return to the preadmission environment? Yes * Can the patient safely return to the preadmission environment? Yes * Has this patient been hospitalized within the prior 30 days at any hospital? Yes Coverage Notice Reviewer: [id number] Margaret Mejía Notice Issued Date-Time: 03/28/2019 12:45 Notice Type: IM Discharge Notice Notice Delivered To: Patient Relationship to Patient: Physician Office Specialist Name: Delivery Method: HAND - Hand Delivered Mona Days: Prior Verbal Notification: Recipient Understood Notice: Yes Recipient Signature: Yes Med Rec Note Co-signed by Attending: Coverage Notice Comment: Reviewer: [id number] Margaret Mejía Notice Issued Date-Time: 03/31/2019 10:00 Notice Type: IM Discharge Notice Notice Delivered To: Patient Relationship to Patient: Physician Office Specialist Name: Delivery Method: HAND - Hand Delivered Mona Days: Prior Verbal Notification: Recipient Understood Notice: Yes Recipient Signature: Yes Med Rec Note Co-signed by Attending: Coverage Notice Comment: Last DP export: 03/28/19 12:01 pm Patient Name: EDGARDO ANTHONY Page 25504 at 1002 All edits/amendments must be made on the electronic document DICTATION DATE: 03/31/19 1002 MEDICAL RECORDS ANALYST: ROSALINDA 03/31/19 1002 RPT#: [id number] DC DATE: STATUS: ADM IN [facility] [address] [place] [address] END OF REPORT
--- NOTE | 2019-03-31 11:00 | NUR ---
PT RESTING LATERAL IN BED. REQUESTED SMALL CUP OF ICE WATER, PROVIDED AND RE-EDUCATED PATIENT OF 1000 CC FLUID RESTRICTION. DENIES OTHER NEEDS AT THIS TIME. BED IN LOWEST POSITION, BED RAILS X2, CALL LIGHT WITHIN REACH. WILL CONTINUE TO MONITOR.
[2019-03-31 12:32] VITALS: BP 112/70
--- NOTE | 2019-03-31 12:48 | NUR ---
PT MOBILE LAB TECHNICIAN LIGHT, REQUESTED URINALS BE EMPTIED, 1050 ML EMPTIED. DENIES OTHER NEEDS AT THIS TIME. BED IN LOWEST POSITION, BED RAILS X2, CALL LIGHT WITHIN REACH. WILL CONTINUE TO MONITOR. REHAB READY FOR REPORT, WAITING TO HAVE DISCHARGE PAPERWORK READY BEFORE MOVING PT DOWNSTAIRS.
--- NOTE | 2019-03-31 13:33 | NUR ---
PT RESTING SUPINE UPON ENTERING. DENIES ANY NEEDS AT THIS TIME. NO S/S OF DISTRESS. BED IN LOWEST POSITION, BED RAILS X2, CALL LIGHT WITHIN REACH. WILL CONTINUE TO MONITOR.
--- NOTE | 2019-03-31 13:52 | NUR ---
CALLED REPORT TO RECEIVING NURSE ON REHAB.
--- NOTE | 2019-03-31 14:05 | NUR ---
DC PT IV WITH CATHETER INTACT. TOLERATED PROCEDURE WELL. 2X2 AND TAPE PLACED ON SITE.
--- NOTE | 2019-03-31 14:30 | NUR ---
PT ESCORTED TO REHAB BY SHARIF PEREZ. ACCOMPANIED BY PT .
--- NOTE | 2019-03-31 15:30 | NUR ---
RECEIVED REPORT FROM THERAPEUTIC RECREATION ASSISTANT ON PT. CLEAN CATH, RIGHT RADIAL INCISION. 100 OF FENTANYL AND 2 VERSED PER OR.
--- NOTE | 2019-04-01 08:49 | MORECARE ---
CASE MANAGEMENT DISCHARGE SUMMARY PATIENT: EDGARDO ANTHONY UNIT: [id number] ADM DATE: 03/25/19 AGE: 68 : [birth year] SEX: M ROOM/BED: D.2139 AUTHOR: HILARY,DOC PHYSICIAN: REFERRING PHYSICIAN: MICHELE BISHOP MD DATE OF SERVICE: 04/01/19 Discharge Plan Patient Name: EDGARDO ANTHONY Facility: [facility]:[place] : 1950 Planned Disposition: Inpatient Rehab Anticipated Discharge Date: 03/31/19 Discharge Date: 03/31/2019 Expected LOS: 6 Initial Reviewer: [email or web address] Initial Review Date: 03/27/2019 Generated: 04/01/19 9:48 am Comments DCP- Discharge Planning Updated by [email or web address]: Jeff Mejía on 03/31/19 9:[address] Patient Name: EDGARDO ANTHONY Encounter No: [id number] : 1950 Primary Insurance: MEDICARE A & B Anticipated DC Date: 03-31-2019 Planned Disposition: Inpatient Rehab External Planned Provider: [facility] DCP follow-up note: CM SPOKE TO DR. BISHOP WHO INFORMED CM THAT PT WILL DISCHARGE TO REHAB TODAY. PT NOTIFIED, IN AGREEMENT WITH DISCHARGE TO INPATIENT REHAB WHEN STABLE. IMPORTANT MESSAGE FROM MEDICARE PROVIDED AND EXPLAINED. CM NOTIFIED INPATIENT REHAB OF DISCHARGE ORDER; [facility] WILL CONTACT MED 2 NURSE WITH ROOM NUMBER WHEN READY TO ACCEPT PT AND NURSE REPORT. . Jeff Mejía, CASE MANAGEMENT DCP- Discharge Planning Updated by [id number]: Jeff Mejía on 03/28/19 11:[address] Patient Name: EDGARDO ANTHONY Encounter No: [id number] : 1950 Primary Insurance: MEDICARE A & B Anticipated DC Date: Planned Disposition: Inpatient Rehab External Planned Provider: [facility] DCP follow-up note: CM SPOKE TO JESSICA OF INPATIENT REHAB, THEY PLAN TO ACCEPT PT WHEN MEDICALLY STABLE FOR REHAB AND CAN ACCEPT TODAY. CM CALLED DR. BISHOP WHO INFORMED CM TO CHECK WITH DR. CERON. CM CALLED DR. CERON WHO INFORMED CM THAT PT IS NOT MEDICALLY STABLE FOR DISCHARGE TO REHAB. PT NOTIFIED, IN AGREEMENT WITH DISCHARGE TO INPATIENT REHAB WHEN STABLE. IMPORTANT MESSAGE FROM MEDICARE PROVIDED AND EXPLAINED. WHEN READY TO DISCHARGE TO REHAB, [facility] WHO WILL THEN CONTACT MED 2 NURSE WITH ROOM NUMBER WHEN READY TO ACCEPT PT AND NURSE REPORT. . Jeff Mejía, CASE MANAGEMENT DCP- Discharge Planning Updated by [email or web address]: Jeff Mejía on 03/27/19 3:[address] Patient Name: EDGARDO ANTHONY Admission Status: ER Accout number: [id number] Admission Date: 03-25-2019 : 1950 Admission Diagnosis:OTHER SPECIFIED ABNORMAL FINDINGS OF BLOOD CHEMISTRY Attending: MICHELE BISHOP Current LOS: 2 Anticipated DC Date: Planned Disposition: Inpatient Rehab Primary Insurance: MEDICARE A & B PLANNED EXTERNAL PROVIDER: [facility] Discharge Planning Comments: CM RECEIVED ORDER FOR INPATIENT REHAB PRESCREENING. CM MET WITH PT AND SPOUSE IN ROOM TO DISCUSS DISCHARGE PLANNING AND NEEDS. EDGARDO ANTHONY provided verbal consent to discuss current and ongoing needs with/in the presence of: SPOUSE, OMERO. PT REPORTS LIVING AT HOME INDEPENDENTLY WITH HIS . PT HAS NO MEDICAL EQUIPMENT AND NO OUTSIDE SERVICES ASSISTING IN THE HOME. CM DISCUSSED AVAILABILITY OF HOME HEALTH, REHAB SERVICES AND MEDICAL EQUIPMENT. PT WIHAS BEEN TO [facility] IN THE PAST AND WOULD LIKE REHAB THERE BEFORE RETURNING HOME. PT'S AGREES, STATES PT WAS IN A HURRY TO LEAVE THE HOSPITAL LAST TIME AND ENDED UP RIGHT BACK. PT REPORTS HIS WILL PICK HIM UP FOR DISCHARGE HOME. CM WAITING INPATIENT REHAB PRESCREENING RESULT AND ADMISSION DETEMINATION FROM [facility]. Aircraft Painter Apprentice: Jeff Mejía DCPIA - Discharge Planning Initial Assessment Updated by [email or web address]: Jeff Mejía on 03/27/19 4:16 pm * Is the patient Alert and Oriented? Yes * How many steps to enter\exit or inside your home? 1-0 / 3-I * PCP DR. BISHOP * Pharmacy [facility] * Preadmission Environment Home with Family * ADLs Independent * Equipment None * Other Equipment NO MEDICAL EQUIPMENT PROVIDER PREFERENCE * List name and contact numbers for known caregivers / representatives who currently or will assist patient after discharge: OMERO ANTHONY, SPOUSE, * Verbal permission to speak to the caregivers and representatives has been obtained from the patient. Yes * Community resources currently utilized None * Please name any agencies selected above. NONE * Additional services required to return to the preadmission environment? Yes * Can the patient safely return to the preadmission environment? Yes * Has this patient been hospitalized within the prior 30 days at any hospital? Yes Coverage Notice Reviewer: [id number] Margaret Mejía Notice Issued Date-Time: 03/28/2019 12:45 Notice Type: IM Discharge Notice Notice Delivered To: Patient Relationship to Patient: Hoist Operator Name: Delivery Method: HAND - Hand Delivered Mona Days: Prior Verbal Notification: Recipient Understood Notice: Yes Recipient Signature: Yes Med Rec Note Co-signed by Attending: Coverage Notice Comment: Reviewer: [id number] Margaret Mejía Notice Issued Date-Time: 03/31/2019 10:00 Notice Type: IM Discharge Notice Notice Delivered To: Patient Relationship to Patient: Hoist Operator Name: Delivery Method: HAND - Hand Delivered Mona Days: Prior Verbal Notification: Recipient Understood Notice: Yes Recipient Signature: Yes Med Rec Note Co-signed by Attending: Coverage Notice Comment: Last DP export: 03/31/19 9:02 am Patient Name: EDGARDO ANTHONY Page 75077 at 0849 All edits/amendments must be made on the electronic document DICTATION DATE: 04/01/19847 SOFTWARE QUALITY ASSURANCE ENGINEER: ROSALINDA 04/01/19847 RPT#: [id number] DC DATE:03/31/19 STATUS: DIS IN [facility] [address] [place] [address] END OF REPORT
== END 2019-03-31 14:35 | DRG 291 ==
LOC: D.ER 14:22 → D.M2 17:09
PROVIDERS: Emergency Medicine; ADMIT Family Medicine; ATTEND Family Medicine
DX: I13.0 Hypertensive heart and chronic kidney disease with heart failure and stage 1 through stage 4 chronic kidney disease, or unspecified chronic kidney disease (principal); J18.9 Pneumonia, unspecified organism; I50.31 Acute diastolic (congestive) heart failure; J98.11 Atelectasis; N17.9 Acute kidney failure, unspecified; J44.0 Chronic obstructive pulmonary disease with (acute) lower respiratory infection; R94.5 Abnormal results of liver function studies; M19.90 Unspecified osteoarthritis, unspecified site; I48.2 Chronic atrial fibrillation; M54.9 Dorsalgia, unspecified; G89.29 Other chronic pain; N18.3 Chronic kidney disease, stage 3 (moderate); D50.9 Iron deficiency anemia, unspecified; Z74.09 Other reduced mobility; K21.9 Gastro-esophageal reflux disease without esophagitis

== ENCOUNTER 2019-03-31 15:20 | Inpatient (IN) | payer MEDICARE, OTHER ==
[~2019-03-31] VITALS: Ht 193 cm; Wt 132.9 kg
[~2019-03-31 15:20] MED LIST changes: +BUMEX2 MG PO; +K-TAB10 MEQ PO; +LAC-HYDRIN 5226 ML TOPICAL; +MAG-OX 400 MG400 MG PO; +METOPROLOL TART50 MG PO; +PROTONIX40 MG PO
[2019-03-31 16:04] VITALS: BP 130/73; BMI 35.8
--- NOTE | 2019-03-31 19:30 | NUR ---
PT SITTING UP WATCHING TV. CL IN REACH. DENIES NEEDS OR PAIN AT THIS TIME. BED IN LOW SIDE RAILS X2. A/O X4. RESP EVEN AND UNLABORED. WILL CONTINUE TO MONITOR.
[2019-03-31 20:28] VITALS: BP 137/72
--- NOTE | 2019-04-01 | NUR ---
PT RESTING QUIETLY. CL IN REACH. NO DISTRESS NOTED. RESP EVEN AND UNLABORED. WCTM
--- NOTE | 2019-04-01 06:22 | NUR ---
PT RESTING QUIETLY. CL IN REACH. NO DISTRESS NOTED. WCTM
--- NOTE | 2019-04-01 06:49 | NUR ---
I have reviewed this patient and I concur with the Shift Assessment completed by the Licensed Practical Nurse today this shift.
[2019-04-01 06:53] LABS: BASOPHILS 0.1 % (0-2); EOSINOPHILS 1.4 % (0-7); HEMATOCRIT 33.2 % (42.0-54.0); HEMOGLOBIN 11.3 g/dL (13.5-17.5); IMMATURE GRANULOCYTES 1.5 % (0-5); LYMPHOCYTES 30.3 % (15-50); MCH 31.4 pg (26.0-34.0); MCV 92.2 fL (80.0-100.0); MEAN PLATELET VOLUME 11.8 fL (7.4-10.4); MONOCYTES 18.4 % (2-11); NEUTROPHILS 48.3 % (40-80); RDW 16.2 % (11.5-14.5); WBC 9.6 10x3/uL (4.8-10.8)
[2019-04-01 06:56] LABS: CALCIUM 8.2 mg/dL (8.5-10.1); CARBON DIOXIDE 34.2 mmol/L (21.0-32.0); CREATININE - SERUM 1.8 mg/dL (0.6-1.3); POTASSIUM - SERUM 4.2 mmol/L (3.5-5.1)
[2019-04-01 07:02] LABS: PLATELET COUNT 238 10x3/uL (130-400)
--- NOTE | 2019-04-01 08:00 | NUR ---
PT RESTING IN BED WITH EYES OPEN CALL LIGHT IN REACH WILL MONITER
[2019-04-01 10:31] VITALS: BP 129/71
--- NOTE | 2019-04-01 10:39 | NUR ---
PATIENT ADMITTED TO REHAB FROM ACUTE FLOOR. DR. BISHOP IS HIS PCP. DSICHARGE PLANS ARE FOR PATIENT TO RETURN HOME WITH SPOUSE. WILL CONTINUE TO FOLLOW WITH PATIENT.
[2019-04-01 13:04] VITALS: Ht 193 cm; Wt 132.9 kg
--- NOTE | 2019-04-01 13:15 | NUR ---
I have reviewed this patient and I concur with the Shift Assessment completed by the Licensed Practical Nurse today this shift.
--- NOTE | 2019-04-01 18:33 | NUR ---
PT RESTING IN BED WITH EYES OPEN CALL LIGHT IN REACH WILL MONITER
[2019-04-01 19:48] VITALS: BP 114/70
--- NOTE | 2019-04-01 20:11 | NUR ---
AWAKE AND ALERT. RESTING IN BED WITH RESPIRATIONS UNLABORED. O2/2L ON PER NASAL CANNULA. NO C/O DISCOMFORTS. ON FLUID RESTRICTIONS AND HE IS AWARE OF THIS. NO ACUTE DISTRESS NOTED. CALL LIGHT IN REACH.
--- NOTE | 2019-04-02 02:58 | NUR ---
RESTING IN BED WITH RESPIRATIONS UNLABORED. NO DISTRESS NOTED. CALL LIGHT IN REACH.
--- NOTE | 2019-04-02 05:10 | NUR ---
RESTING IN BED WITH RESPIRATIONS UNLABORED. O2/2L ON PER NASAL CANNULA. NO ACUTE CHANGES IN CONDITION THIS SHIFT. NO DISTRESS NOTED. CALL LIGHT IN REACH.
[2019-04-02 08:03] VITALS: BP 118/70
[2019-04-02 08:10] LABS: ANION GAP 7.7 mmol/L (8-16); CALCIUM 8.2 mg/dL (8.5-10.1); CARBON DIOXIDE 32.5 mmol/L (21.0-32.0); CREATININE - SERUM 1.8 mg/dL (0.6-1.3); POTASSIUM - SERUM 4.2 mmol/L (3.5-5.1)
[2019-04-02 08:13] LABS: HEMATOCRIT 30.2 % (42.0-54.0); HEMOGLOBIN 10.5 g/dL (13.5-17.5); LYMPHOCYTES 30.9 % (15-50); MCHC 34.8 g/dL (31.0-37.0); MEAN PLATELET VOLUME 11.6 fL (7.4-10.4); NEUTROPHILS 44.6 % (40-80); PLATELET COUNT 170 10x3/uL (130-400); RBC 3.18 10x6/uL (4.20-6.10); RDW 16.6 % (11.5-14.5); WBC 7.2 10x3/uL (4.8-10.8)
--- NOTE | 2019-04-02 12:38 | NUR ---
THE PATIENT WAS SITTING IN HIS WHEELCHAIR WHEN STAFF ENTERED HIS ROOM. ALARMS ARE CHECKED AND AUDIABLE FROM THE NURSES STATION. THE PATIENT DEMOSNTRATE THE NEED TO CALL FOR ASSISTANCE WHENEVER HE NEEDS TO GET OUT OF BED OR HIS WHEELCHAIR. THE PATIENT APPEARS COMFORTABLE WITH NO QUESTIONS OR CONCERNS AT THIS TIME.
--- NOTE | 2019-04-02 14:24 | NUR ---
THE PATIENT APPEARED TO BE SLEEPING BUT EASILY AWOKE WHEN STAFF ENTERED HIS ROOM. BED IS IN THE LO SPOSITION WITH SIDERAILS X2 AND CALL LIGHT WITHIN REACH. THE PATIENT WAS EDUCATED ON THE USE OF A CALL LIGHT AND THE NEED TO CALL FOR ASSISTANCE WHENEVER HE NEEDS TO GET OUT OF BED. THE PATIENT DEMONSTRATES UNDERSTANDING VIA TEACHBACK METHOD. THE PATIENT APPEARS COMFORTABLE WITH NO QUESTIONS OR COCNERNS AT THIS TIME.
--- NOTE | 2019-04-02 16:15 | NUR ---
CARE TEAM MEETING: PATIENT IS NEW TO UNIT AND WILL BE RA AT NEXT MEETING. WILL CONTINUE TO FOLLOW WITH PATIENT. PATIENT HAS DECLINED OT TODAY,VISITING WITH FAMILY AT THIS TIME
[2019-04-02 20:00] VITALS: BP 127/78; BP 90/48
--- NOTE | 2019-04-02 21:00 | NUR ---
GREETED PATIENT AND INTRODUCED MYSELF.PATIENT IS LAYING IN BED AND COMPLAINING THAT HE JUST DOESNT UNDERSTAND WHY HE CANT HAVE MORE WATER TO DRINK. DENIES ANY OTHER NEEDS AT THIS TIME. CALL LIGHT IN REACH.
[2019-04-03 07:25] VITALS: BP 92/61
--- NOTE | 2019-04-03 07:25 | NUR ---
BEDSIDE REPORT COMPLETED. LYING IN BED ON RIGHT SIDE EYES CLOSED RESTING. RR EVEN AND UNLABORED. CONTINUES ON 2L VIA NC. CALL LIGHT WITHIN REACH, FALL PRECAUTIONS IN PLACE. WILL CONTINUE TO MONITOR
--- NOTE | 2019-04-03 13:43 | NUR ---
LYING IN BED ON LEFT SIDE EYES CLOSED RESTING. RR EVEN AND UNLABORED. WILL CONTINUE TO MONITOR
--- NOTE | 2019-04-03 15:40 | NUR ---
LYING ON RIGHT SIDE RESTING. CONTINUES ON 2L VIA NC. WILL CONTINUE TO MONITOR
--- NOTE | 2019-04-03 18:24 | NUR ---
SITTING UP IN BED WATCHING TV. DENIES ANY NEEDS OR PAIN. NO SIGNS OF DISTRESS NOTED. WILL CONTINUE TO MONITOR
[2019-04-03 19:17] VITALS: BP 153/81
--- NOTE | 2019-04-03 19:17 | NUR ---
GREETED PATIENT AND INTRODUCED MYSELF HIS NURSE. PATIENT IS LAYING IN BED IN SUPINE POSITION WITH O2 AT 2L VIA NC. RESPIRATIONS EVEN. NO S/S OF DISTRESS. DENIES ANY PAIN AT THIS TIME. VITAL SIGNS OBTAINED. CALL LIGHT IN REACH.
--- NOTE | 2019-04-03 22:30 | NUR ---
PATIENT CALLED ON LIGHT AND STATED THAT HE THOUGHT HE WAS GETTING A BLOOD CLOT IN RIGHT LEG. ASSESSED PEDAL PULSES ON RIGHT LEG AND WHERE BOUNDING 3+. ASSESSED TEMPERATURE FROM HIP TO FOOT, NO CHANGE NOTED.
--- NOTE | 2019-04-04 02:11 | NUR ---
PATIENT RESTING QUIETLY WITH EYES CLOSED LAYING ON RIGHT SIDE. O2 AT 2L IN USE VIA NC. RESPIRATIONS EVEN. NO S/S OF DISTRESS. SR UP X 2. BED IN LOWEST POSITION. CALL LIGHT IN REACH.
[2019-04-04 06:33] LABS: ANION GAP 10.6 mmol/L (8-16); MAGNESIUM - SERUM 1.3 mg/dL (1.8-2.4); POTASSIUM - SERUM 4.6 mmol/L (3.5-5.1)
[2019-04-04 06:39] LABS: HEMATOCRIT 29.1 % (42.0-54.0); MCH 31.6 pg (26.0-34.0); MCHC 34.4 g/dL (31.0-37.0); PLATELET COUNT 190 10x3/uL (130-400); RBC 3.16 10x6/uL (4.20-6.10); RDW 16.1 % (11.5-14.5); WBC 6.7 10x3/uL (4.8-10.8)
[2019-04-04 07:01] LABS: MCV 92.1 fL (80.0-100.0)
--- NOTE | 2019-04-04 07:35 | NUR ---
BEDSIDE REPORT COMPLETE. LYING IN BED ON RIGHT SIDE EYES CLOSED RESTING. NO SIGNS OF DISTRESS NOTED. CONTINUES ON 2L VIA NC. CALL LIGHT WITHIN REACH, FALL PRECAUTIONS IN PLACE. WILL CONTINUE TO MONTIOR
[2019-04-04 07:51] VITALS: BP 107/67
--- NOTE | 2019-04-04 08:57 | NUR ---
PER DR. GARZA REMOVE FLUID RESTRICTION CHEST XRAY NEG FOR PLURAL EFFUSION
[2019-04-04 10:30] LABS: ANISOCYTOSIS OCC; EOSINOPHILS 3 % (0-7); HYPOCHROMASIA OCC; LYMPHOCYTES 28 % (15-50); MONOCYTES 25 % (2-11); NEUTROPHILS 44 % (40-80); PLATELET ESTIMATE NORMAL
--- NOTE | 2019-04-04 11:25 | NUR ---
O2 SAT DROPPED TO 90% AT REST AFTER 15 MIN OFF OXYGEN AND DROPPED TO 86% WITH ACTIVITY.
--- NOTE | 2019-04-04 16:04 | NUR ---
SITTING UP IN W/C WATCHING TV. DENIES ANY NEEDS OR PAIN. AT BEDSIDE. WILL CONTINUE TO MONITOR
--- NOTE | 2019-04-04 19:00 | NUR ---
PT IS RESTING IN BED WITH EYES OPEN. ALERT AND ORIENTED X 3. DENIES ACUTE PAIN OR DISCOMFORT. NO NEEDS VOICED. O2 IS ON @ 2LPM PER NC. NO SOB NOTED. SR'S ARE UP X 2 IN BED. CALL LIGHT AND BEDSIDE TABLE ARE WITHIN EASY REACH.
[2019-04-04 19:17] VITALS: BP 130/72
--- NOTE | 2019-04-04 22:10 | NUR ---
PT VOICED COMPLAINT OF CAROLYN LEG PAIN LEVEL OF 7, AND INSOMNIA. MEDIATED REQUESTED.
--- NOTE | 2019-04-05 00:25 | NUR ---
RESTING IN BED WITH EYES CLOSED.
--- NOTE | 2019-04-05 03:33 | NUR ---
I have reviewed this patient and I concur with the Shift Assessment completed by the Licensed Practical Nurse today this shift.
--- NOTE | 2019-04-05 04:58 | NUR ---
PT IS RESTING IN BED WITH EYES CLOSED.
--- NOTE | 2019-04-05 07:10 | NUR ---
BEDSIDE SHIFT REPORT COMPLETE. PT LYING IN BED ON LEFT SIDE EYES OPEN RESTING. DENIES ANY NEEDS OR PAIN. EMPTIED URINAL 300ML CONCENTRATED URINE. CONTINUES ON 2L VIA NC. NO SIGNS OF DISTRESS NOTED. CALL LIGHT WITHIN REACH, FALL PRECAUTIONS IN PLACE. WILL CONTINUE TO MONITOR
[2019-04-05 08:00] VITALS: BP 125/65
--- NOTE | 2019-04-05 11:58 | NUR ---
SITTING UP IN W/C EATING LUNCH. NO SIGNS OF DISTRESS NOTED. WILL CONTINUE TO MONITOR
--- NOTE | 2019-04-05 16:01 | NUR ---
LYING IN BED ON RIGHT SIDE EYES CLOSED RESTING. RR EVEN AND UNLABORED. CALL LIGHT WITHIN REACH, FALL PRECAUTIONS IN PLACE. WILL CONTINUE TO MONITOR
--- NOTE | 2019-04-05 18:17 | NUR ---
SITTING UP IN BED VISITING FAMILY. DENIES ANY NEEDS OR PAIN. NO SIGNS OF DISTRESS NOTED. WILL CONTINUE TO MONITOR
--- NOTE | 2019-04-05 19:11 | NUR ---
PT RESTING IN BED WTIH EYES CLOSED. AWOKE EASILY TO VERBAL STIMULI. ALERT AND ORIENTED X 3. DENIES ACUTE DISCOMFORT AT THIS TIME. NO NEEDS VOICED. USES URINAL PRN. VSS.SR'S ARE UP X 2 IN BED. CALL LIGHT AND BEDSIDE TABLE ARE WITHIN EASY REACH.
[2019-04-05 19:18] VITALS: BP 134/71
--- NOTE | 2019-04-05 22:34 | NUR ---
PT VOICED COMPLAINT OF CAROLYN LEG PAIN LEVEL OF 7, AND INSOMNIA. MEDICATED PER OCT.
--- NOTE | 2019-04-06 01:15 | NUR ---
PT RESTING IN BED WITH EYES CLOSED. NO DISTRESS NOTED.
--- NOTE | 2019-04-06 03:30 | NUR ---
PT RESTING IN BED WITH EYES CLOSED. NO ACUTE DISTRESS NOTED.
--- NOTE | 2019-04-06 05:46 | NUR ---
PT RESTING IN BED WITH EYES OPEN. NO ACUTE DISTRESS NOTED. PT OFFERED A SHOWER. HE STATED: "NO, MY DAUGHTER IS BRINGING ME POTATOES AND GRAVY AND STUFF ABOUT 9, AND I WANT TO TAKE IT AFTER THAT.
[2019-04-06 08:00] VITALS: BP 128/64
--- NOTE | 2019-04-06 08:00 | NUR ---
PATIENT IS ALERT/ORIENT. USING CALL LIGHT FOR NEEDS. WILL CONTINUE WITH PLAN OF CARE
--- NOTE | 2019-04-06 09:44 | NUR ---
PATIENT HAS SIGNED BED/CHAIR ALARM WAVIOR. WALKES IN ROOM WITH STEADY GAIT
--- NOTE | 2019-04-06 10:29 | NUR ---
I have reviewed this patient and I concur with the Shift Assessment completed by the Licensed Practical Nurse today this shift.
--- NOTE | 2019-04-06 12:49 | NUR ---
IN ROOM WITH PATIENT. AND THIS NURSE TALKED ABOUT PATIENTS DAUGHTER BRINGING IN FOOD THAT IS NOT AHA CARDIAC LOW FAT LOW CHOLESTEROL. THIS NURSE TALKED WITH DAUGHTER ON PHONE. DAUGHTER AGREED TO LET NURSES OK WHAT FOOD SHE BRING IN FOR HER FATHER.
[2019-04-06 19:38] VITALS: BP 105/57
--- NOTE | 2019-04-06 19:42 | NUR ---
PT IS RESTING IN BED WATCHING TV. ALERT AND ORIENTED X 3. VOICED COMPLAINT OF CAROLYN LEG PAIN LEVEL OF 4 AT THIS TIME. DENIED NEED FOR PAIN MEDICATION. CAROLYN FEET ELEVATED UP ON PILLOWS. PT STATES: " I WANT TO GET OUT OF HERE TOMORROW. SHASTA BEEN HERE A MONTH, AND THIS TYPE OF THERAPY ISNT DOING HIM ANY GOOD. SR'S ARE UP X 2 IN BED. CALL LIGHT AND BEDSIDE TABLE ARE WITHIN EASY REACH. PT HAS A SIGNED BED ALARM WAIVER.
--- NOTE | 2019-04-06 21:55 | NUR ---
RESTING IN BED WITH EYES CLOSED.
--- NOTE | 2019-04-07 00:01 | NUR ---
RESTING IN BED WITH EYES CLOSED.
--- NOTE | 2019-04-07 02:04 | NUR ---
RESTING IN BED WITH EYES CLOSED. USING URINAL PRN.
[2019-04-07 06:23] LABS: HEMATOCRIT 29.5 % (42.0-54.0); HEMOGLOBIN 10.1 g/dL (13.5-17.5); IMMATURE GRANULOCYTES 0.6 % (0-5); MCH 31.2 pg (26.0-34.0); MCHC 34.2 g/dL (31.0-37.0); MEAN PLATELET VOLUME 11.5 fL (7.4-10.4); PLATELET COUNT 205 10x3/uL (130-400); RBC 3.24 10x6/uL (4.20-6.10); RDW 15.9 % (11.5-14.5); WBC 6.8 10x3/uL (4.8-10.8)
--- NOTE | 2019-04-07 06:32 | NUR ---
PT RESTING IN BED WITH EYES OPEN. STATES: "I WANT TO TALK TO THE DR CHAN. I NEED TO GET OUT OF HERE AND GO HOME."
[2019-04-07 06:50] LABS: CARBON DIOXIDE 31.4 mmol/L (21.0-32.0); CREATININE - SERUM 2.3 mg/dL (0.6-1.3); POTASSIUM - SERUM 4.4 mmol/L (3.5-5.1)
[2019-04-07 08:00] VITALS: BP 118/63
[2019-04-07] MEDS ORDERED: LANOXIN125 MCG PO (08:22)
[2019-04-07] MEDS ORDERED: XARELTO10 MG PO (08:22)
[2019-04-07] MEDS ORDERED: CARDIZEM CD180 MG PO (08:23)
[2019-04-07] MEDS ORDERED: Bumex PO (08:23)
[2019-04-07] MEDS ORDERED: K-DUR20 MEQ PO (08:25)
[2019-04-07] MEDS ORDERED: ULTRAM50 MG PO (08:25)
[2019-04-07] MEDS ORDERED: HYDROCODON-ACE1 EA10 PO (08:25)
--- NOTE | 2019-04-07 08:26 | RHP ---
PATIENT: EDGARDO ANTHONY MEDICAL RECORD: [id number] ACCOUNT: [id number] LOCATION:[id number] : [birth year] ADMISSION DATE: 03/31/19 REHABILITATION HISTORY AND PHYSICAL EXAMINATION POST ADMISSION PHYSICIAN EXAMINATION POST ADMISSION PHYSICAL EXAMINATION AND HISTORY AND PHYSICAL DATE OF ADMISSION: 03/31/2019 ADMITTING DIAGNOSIS: Acute hypoxic respiratory failure causing debility. HISTORY OF PRESENT ILLNESS: The patient is a 68-year-old gentleman admitted to the acute rehab unit secondary to debility from hypoxic respiratory failure post procedure. He had an abdominal aortic aneurysm repair on March 22, presented to the ED on March 25 3 days after placement of a bifurcated aortic endograft by Dr. Graves. The patient was having increasing dyspnea. His breath sounds were clear, but he was in mild distress. He had pitting edema 4+ in his lower extremities. He was in AFib with controlled rate. X-ray showed a little bit of an effusion on the right. There were no overt signs of heart failure at that time. His edema was bad enough though for admission to the hospital for IV diuresis and Bumex drip. His LFTs were abnormal and this was to be evaluated by GI. GI was consulted. There are no plans for any type of procedure at this time. Overall presentation suggested that he was in heart failure, which could be causing the liver enzymes and bilirubin to be elevated. The patient is also on multiple medications that could be causing drug-induced injury. Pulmonary impression was dyspnea, multifactorial secondary to atelectasis of the right base, history of recent pneumonia, volume overload, and pleural effusion. The patient also has underlying COPD with his history of smoking for greater than 40-pack years. His O2 is constant. He is on p.r.n. BiPAP to keep sat greater than 90%. He is also going to finish a course of antibiotics. He is getting DuoNeb 4 times daily. He is on inspiratory spirometry, Brovana and Pulmicort. Previously he was living with his , was independent with ADLs without assistance device. Currently, he is mod-to-max assist for ADLs and mobility due to fatigue, generalized weakness, dyspnea on exertion. He can ambulate 100-200 feet, but requires rolling walker, gait belt, portable O2 and takes 3 rest drops to catch his breath. He will definitely need inpatient rehab to get back to his prior level of functioning. Comorbidities in this patient include pneumonia, COPD, volume overload, elevated liver enzymes, elevated bilirubin, dyspnea on exertion, decreased albumin, anasarca, chronic kidney disease, iron-deficient anemia, history of AAA repair, pleural effusion, CHF, AFib, hypertension, electrolyte abnormalities, and impaired mobility. PAST MEDICAL HISTORY: Significant for hypertension, sick sinus syndrome, aortic aneurysm, acid reflux, chronic back pain, anxiety. PAST SURGICAL HISTORY: Includes bilateral knee replacement and aortic aneurysm repair. ALLERGIES: No known drug allergies. CURRENT MEDICATIONS: Include an iron supplement daily. He is on Protonix 40 mg daily, potassium 30 mEq b.i.d., metoprolol 50 mg b.i.d., Mag-Ox 400 mg t.i.d., Bumex 2 mg b.i.d., ammonia lactate lotion to apply b.i.d. He is on Zofran 4 mg every 4 hours p.r.n. He is on budesonide 0.5 mg b.i.d., tramadol 50 mg every 4 HISTORY AND PHYSICAL [id number] EDGARDO ANTHONY R hours p.r.n., DuoNeb updrafts q.i.d. as needed, and [place] 10/325 one tab every 4 hours p.r.n. HABITS: No current alcohol or tobacco use. FAMILY HISTORY: Noncontributory. SOCIAL HISTORY: The patient hopes to return back home and get back to his prior level of functioning. REVIEW OF SYSTEMS: GENERAL: Does complain of weakness and fatigue. HEENT: Denies cold, cough, or congestion. CARDIOVASCULAR: Denies any chest pain. PHYSICAL EXAMINATION: VITAL SIGNS: Stable, afebrile. GENERAL: A morbidly obese gentleman, in no acute distress upon exam. HEENT: Normocephalic and atraumatic. Mucosa moist. NECK: Supple, with no lymphadenopathy. LUNGS: Clear in the upper casanova, but decreased breath sounds in the bases secondary to his body habitus. CARDIOVASCULAR: Regular rate and rhythm at this time. ABDOMEN: Soft, benign, and nondistended. Positive bowel sounds times 4. EXTREMITIES: No clubbing, cyanosis. He does have 2 to 3+ edema. NEUROLOGIC: He does have 2/5 muscle strength bilaterally in his lower legs, but 4/5 in his upper extremities. LABORATORY DATA: White count is 9.6, H&H of 11 and 33, and platelet count was noted to be 238. His sodium is 135, potassium 4.2, BUN and creatinine of 34 and 1.8, blood sugar is noted to be 90. ASSESSMENT: This is a 68-year-old male patient, who presents secondary to debility secondary to respiratory failure and recent AAA repair. The patient has potential to make improvement. We will institute the following multidisciplinary therapies including, but not limited to, physical, occupational, respiratory, speech, nutritional services, prosthetics, and orthotics. Given his complex medical condition and risks for more complications, rehabilitation services cannot be provided at a lower level of care such as a skilled nurse facility. PLAN: 1. Admit to [facility] for inpatient therapy to include the following disciplines; A. Physical therapy to improve gait, all transfer skills, and bed mobility to modified independent level. B. Occupational therapy to modified independent level. C. Case management to assist with discharge planning and placement options. D. Nutrition to assist with nutritional needs. E. Rehabilitation nursing to assist in monitoring the patient's underlying medical conditions and to assist with any type of bowel or bladder management. 2. The patient's current medications and medical care will be continued. 3. The patient will be placed on standard fall precautions. 4. The patient's estimated length of stay is approximately 7-10 days. 5. We will discuss the patient during care team staff meeting this week, which HISTORY AND PHYSICAL [id number] EDGARDO ANTHONY will be tomorrow. I am going to go ahead and repeat blood work. We will watch for any overt signs of heart failure, and we will follow electrolytes closely. TRANSINT:[id number] Voice Confirmation ID: [id number] DOCUMENT ID: [id number] CARLOS notes whether there has been none or any medical/functional change since admission: - No change since the PAS CARLOS attests patient continues to be appropriate for IRF: - Remains appropriate for the [facility] FARA GARZA MD at 0826 CC: [id number] DICTATION DATE: 04/01/19 0815 HAND CLERICAL VERIFIER: 04/01/19 0909 ADM IN [facility] [address] [place] [address]
[2019-04-07 08:27] LABS: LYMPHOCYTES 29 % (15-50); MONOCYTES 16 % (2-11); NEUTROPHILS 55 % (40-80)
[2019-04-07 08:28] LABS: PLATELET ESTIMATE NORMAL
[2019-04-07 08:30] LABS: BASOPHILS 0 % (0-2); EOSINOPHILS 0 % (0-7)
--- NOTE | 2019-04-07 09:53 | NUR ---
PATIENT DISCHARGING HOME TODAY WITH FAMILY. [facility] WILL PROVIDE THERAPY AT HOME. NO NEW DME NEEDED AT THIS TIME. DR. BISHOP 04/16/19 @ 3:00. PATIENT CHOICE FORM AND IMFM FORMS SIGNED, COPY GIVEN TO PATIENT AND FILED IN CHART. DISCHARGE INSTRUCTIONS WITH FIM DATA FAXED TO PCP, HOME HEALTH AND REVIEWED WITH PATIENT.
--- NOTE | 2019-04-07 10:36 | NUR ---
READY FOR DC. REVIEWED MEDS, FOLLOW UP APPTS, DC PLAN. CALLED MEDS IN TO PHARMACY. HE REFUSED OXYGEN AT HOME. HE IS ANXIOUS TO LEAVE AND GO HOME. SKIN TO LEGS AND FEET IS DRY. BLISTERS TO LOWER LEGS ARE DRYING UP AND NO S/S INFECTION. SOB WITH MINIMAL EXERTION. HE C/O TIRING EASILY. USES URINAL AT BEDSIDE. CONT OF B/B. CALL LIGHT IN REACH
--- NOTE | 2019-04-07 11:06 | NUR ---
FAMILY TOOK PT HOME. LEFT FLOOR IN WC
== END 2019-04-07 11:00 | disposition home health service (06) | DRG 947 ==
LOC: D.REHAB 15:20
PROVIDERS: ADMIT Emergency Medicine; ATTEND Emergency Medicine
DX: R53.81 Other malaise (principal); J95.821 Acute postprocedural respiratory failure; J18.1 Lobar pneumonia, unspecified organism; I13.0 Hypertensive heart and chronic kidney disease with heart failure and stage 1 through stage 4 chronic kidney disease, or unspecified chronic kidney disease; J90 Pleural effusion, not elsewhere classified; J44.9 Chronic obstructive pulmonary disease, unspecified; R06.00 Dyspnea, unspecified; I50.9 Heart failure, unspecified; D50.9 Iron deficiency anemia, unspecified; E87.8 Other disorders of electrolyte and fluid balance, not elsewhere classified; R74.8 Abnormal levels of other serum enzymes; I48.91 Unspecified atrial fibrillation; R60.1 Generalized edema; N18.3 Chronic kidney disease, stage 3 (moderate); R25.2 Cramp and spasm

== ENCOUNTER 2019-04-11 02:32 | Inpatient (IN) | payer MEDICARE, OTHER ==
[~2019-04-11] VITALS: Ht 188 cm; Wt 130.2 kg
[2019-04-11] VITALS (7 sets, daily range): BP systolic 96–138; BP diastolic 37–68; BMI 35.6
[~2019-04-11 02:32] MED LIST changes: +Bumex PO; +K-DUR20 MEQ PO; +XARELTO10 MG PO
--- NOTE | 2019-04-11 02:40 | NUR ---
TRAUMA BAND NUMBER [id number]
[2019-04-11 02:58] LABS: BASOPHILS 0.4 % (0-2); EOSINOPHILS 0.7 % (0-7); HEMATOCRIT 31.4 % (42.0-54.0); HEMOGLOBIN 10.7 g/dL (13.5-17.5); IMMATURE GRANULOCYTES 2.5 % (0-5); LYMPHOCYTES 23.3 % (15-50); MCH 31.2 pg (26.0-34.0); MCHC 34.1 g/dL (31.0-37.0); MCV 91.5 fL (80.0-100.0); MEAN PLATELET VOLUME 10.8 fL (7.4-10.4); MONOCYTES 19.4 % (2-11); NEUTROPHILS 53.7 % (40-80); PLATELET COUNT 209 10x3/uL (130-400); RBC 3.43 10x6/uL (4.20-6.10); RDW 15.2 % (11.5-14.5); WBC 8.5 10x3/uL (4.8-10.8)
[2019-04-11 03:06] LABS: INR 2.18 (0.85-1.17); PROTIME 23.5 SECONDS (11.6-15.0)
[2019-04-11 03:07] LABS: APTT 39.8 SECONDS (22.8-39.4)
[2019-04-11 03:17] LABS: ALBUMIN 1.7 g/dL (3.4-5.0); BILIRUBIN - TOTAL 1.62 mg/dL (0.2-1.3); CARBON DIOXIDE 25.2 mmol/L (21.0-32.0); CREATININE - SERUM 2.8 mg/dL (0.6-1.3); POTASSIUM - SERUM 4.2 mmol/L (3.5-5.1); PROTEIN - SERUM 6.1 g/dL (6.4-8.2)
[2019-04-11 03:21] LABS: MAGNESIUM - SERUM 1.2 mg/dL (1.8-2.4); THYROID STIMULATING HORMONE 0.66 uIU/mL (0.36-3.74); TROPONIN-I 0.026 ng/mL (0.000-0.060)
--- NOTE | 2019-04-11 04:04 | NUR ---
ARRIVES VIA STRETCHER FROM ER PT REFUSES TO ANSWER MOST QUESTIONS STATING IM GOING TO SLEEP LUNGS ARE DEMINISHED BILAT AND SKIN WARM AND DRYBED LOW AND LOCKED CALL LIGHT GIVEN O2 AT TWO LITERS
[2019-04-11 04:57] LABS: LYMPHOCYTES 26 % (15-50); MONOCYTES 20 % (2-11); NEUTROPHILS 54 % (40-80); PLATELET ESTIMATE NORMAL
--- NOTE | 2019-04-11 14:42 | MORECARE ---
CASE MANAGEMENT DISCHARGE SUMMARY PATIENT: EDGARDO ANTHONY UNIT: [id number] ADM DATE: 04/11/19 AGE: 68 : [birth year] SEX: M ROOM/BED: D.2125 AUTHOR: KAREEN RICHARD PHYSICIAN: REFERRING PHYSICIAN: MICHELE BISHOP MD DATE OF SERVICE: 04/11/19 Discharge Plan Patient Name: EDGARDO ANTHONY [facility] [facility] 1950 Planned Disposition: Home with Home Health Anticipated Discharge Date: Discharge Date: Expected LOS: Initial Reviewer: [email or web address] Initial Review Date: 04/11/2019 Generated: 04/11/19 3:42 pm Patient Name: EDGARDO ANTHONY Page [id number] at 1442 All edits/amendments must be made on the electronic document DICTATION DATE: 04/11/191441 MONEY MARKET CLERK: ROSALINDA 04/11/19 1442 RPT#: [id number] PR DATE: STATUS: ADM IN [facility] [address] [place] [address] END OF REPORT
--- NOTE | 2019-04-11 15:54 | NUR ---
ASSESSMENT COMPLETE DENIES ANY NEEDS OR DISCOMFORT AT THIS TIME WILL CONTINUE TO MONITOR
--- NOTE | 2019-04-11 19:15 | NUR ---
RECEIVED REPORT, WILL ASSUME CARE OF PT, DENIES ANY NEEDS AT THIS TIME, IV-LAC-NS @125,02-2L, [id number], BED IS LOW, SRX2, CALL LIGHT IN REACH, WILL CONTINUE PLAN OF CARE
--- NOTE | 2019-04-11 20:31 | NUR ---
EXPLAINED TO PT HE DOESNT NEED TO TAKE HIS OWN MEDS, BECAUSE DR. BISHOP HAS ALOT OF THEM ON HOLD
[2019-04-12 04:00] VITALS: BP 114/67
[2019-04-12 05:42] LABS: APPEARANCE CLEAR (CLEAR); COLOR YELLOW (YELLOW); GLUCOSE NEGATIVE (NEGATIVE); KETONE NEGATIVE (NEGATIVE); NITRITE NEGATIVE (NEGATIVE); PROTEIN NEGATIVE (NEGATIVE); UROBILINOGEN NORMAL (NORMAL)
[2019-04-12 05:43] LABS: BILIRUBIN NEGATIVE (NEGATIVE)
--- NOTE | 2019-04-12 05:58 | NUR ---
I have reviewed this patient and I concur with the Shift Assessment completed by the Licensed Practical Nurse today this shift.
[2019-04-12 06:08] LABS: HEMATOCRIT 27.7 % (42.0-54.0); HEMOGLOBIN 9.4 g/dL (13.5-17.5); MCH 30.8 pg (26.0-34.0); MCHC 33.9 g/dL (31.0-37.0); MCV 90.8 fL (80.0-100.0); MEAN PLATELET VOLUME 10.9 fL (7.4-10.4); PLATELET COUNT 191 10x3/uL (130-400); RBC 3.05 10x6/uL (4.20-6.10); RDW 15.3 % (11.5-14.5); WBC 6.4 10x3/uL (4.8-10.8)
[2019-04-12 06:37] LABS: ALBUMIN 1.4 g/dL (3.4-5.0); ANION GAP 11.3 mmol/L (8-16); BILIRUBIN - TOTAL 1.4 mg/dL (0.2-1.3); CALCIUM 7.3 mg/dL (8.5-10.1); CARBON DIOXIDE 24.9 mmol/L (21.0-32.0); CREATININE - SERUM 2.4 mg/dL (0.6-1.3); MAGNESIUM - SERUM 1.2 mg/dL (1.8-2.4); PHOSPHOROUS 2.9 mg/dL (2.5-4.9); POTASSIUM - SERUM 4.2 mmol/L (3.5-5.1); PROTEIN - SERUM 5.2 g/dL (6.4-8.2)
--- NOTE | 2019-04-12 07:05 | NUR ---
ASSESSMENT DONE. DENIES NEEDS
[2019-04-12 07:30] LABS: LYMPHOCYTES 23 % (15-50); MONOCYTES 13 % (2-11); NEUTROPHILS 61 % (40-80); PLATELET ESTIMATE DECREASED
--- NOTE | 2019-04-12 07:44 | NUR ---
ORTHO B/P LAY 123/72 STAND 95/44
[2019-04-12 07:55] VITALS: BP 123/72
[2019-04-12 11:14] VITALS: Ht 188 cm; Wt 130.2 kg
[2019-04-12 12:25] VITALS: BP 118/69
[2019-04-12 16:02] VITALS: BP 132/70
--- NOTE | 2019-04-12 17:25 | NUR ---
WITHOUT CHANGES OR DISTRESS NOTED AT THIS TIME. DENIES NEEDS. IV RESITED TO LT UPPER ARM
--- NOTE | 2019-04-12 19:30 | NUR ---
RECEIVED REPORT, WILL ASSUME CARE OF PT, IV-L. UPPER ARM-NS @125, [id number]/CAFIB, PT DENIES ANY NEEDS AT THIS TIME, BED IS LOW, SR X 2, CALL LIGHT IN REACH, WILL CONTINUE PLAN OF CARE
[2019-04-12 20:00] VITALS: BP 136/74
--- NOTE | 2019-04-12 22:55 | NUR ---
COMPLAINS OF PAIN, GAVE NORCO ORDERED
[2019-04-13] VITALS (7 sets, daily range): BP systolic 100–140; BP diastolic 52–80
--- NOTE | 2019-04-13 04:09 | NUR ---
I have reviewed this patient and I concur with the Shift Assessment completed by the Licensed Practical Nurse today this shift.
[2019-04-13 05:22] LABS: BASOPHILS 0.4 % (0-2); EOSINOPHILS 2.1 % (0-7); HEMATOCRIT 28.9 % (42.0-54.0); HEMOGLOBIN 9.8 g/dL (13.5-17.5); IMMATURE GRANULOCYTES 1.5 % (0-5); MCH 31.1 pg (26.0-34.0); MCHC 33.9 g/dL (31.0-37.0); MCV 91.7 fL (80.0-100.0); MEAN PLATELET VOLUME 10.9 fL (7.4-10.4); MONOCYTES 13.5 % (2-11); NEUTROPHILS 42.5 % (40-80); PLATELET COUNT 197 10x3/uL (130-400); RBC 3.15 10x6/uL (4.20-6.10); RDW 15.2 % (11.5-14.5); WBC 5.3 10x3/uL (4.8-10.8)
[2019-04-13 05:43] LABS: ANION GAP 11.6 mmol/L (8-16); CALCIUM 7.9 mg/dL (8.5-10.1); CARBON DIOXIDE 23.9 mmol/L (21.0-32.0); CREATININE - SERUM 1.6 mg/dL (0.6-1.3); MAGNESIUM - SERUM 1.5 mg/dL (1.8-2.4); PHOSPHOROUS 2.6 mg/dL (2.5-4.9); POTASSIUM - SERUM 4.5 mmol/L (3.5-5.1)
--- NOTE | 2019-04-13 08:06 | NUR ---
ASSESSMENT DONE. DENIES NEEDS
--- NOTE | 2019-04-13 09:24 | EC ---
PATIENT:EDGARDO ANTHONY DATE OF SERVICE: 04/11/19 SEX: M MEDICAL RECORD: [id number] DATE OF : [birth year] LOCATION:D.M2 D.212 AGE OF PATIENT: 68 ADMISSION DATE: 04/11/19 REFERRING PHYSICIAN: INTERPRETING PHYSICIAN: EVA DIETRICH MD ECHOCARDIOGRAM REPORT ECHO CHARGES 5 ECHO LIMITED Date: 04/11/19 1 DOPPLER ECHO COLOR FLOW 2 DOPPLER ECHO PULSE CLINICAL DIAGNOSIS: ECHOCARDIOGRAPHIC MEASUREMENTS (adult normal given) AC root (d.<3.7cm) 0 cm LV Septum d (<1.2 cm> 0 cm Valve Excursion 0 cm LV Septum (systole) 0 cm Left Atria (s.<4.0cm> 0 cm LVPW d(<1.2cm) 0 cm RV (d.<2.3cm) 0 cm LVPW (sytole) 0 cm LV diastole(<5.6CM) 0 cm MV E-F(>70mm/sec) 0 cm LV systole 0 cm LVOT Diameter 0 cm MV exc.(>10mm) 0 cm Est.ejection fraction (50-75%) % DOPPLER: LVIT 0 cm/sec A 0 cm/sec E 0 cm/sec LA 0 cm/sec RVSP 42.0 mmHg LVOT 0 cm/sec AOP1/2T 0 m/s Asc. Ao 0 cm/sec RVOT 0 cm/sec RA 0 cm/sec PA 0 cm/sec AV Gradient Peak 0 mmHg AV Mean 0 mmHg AV Area 0 cm MV Gradient Peak 0 mmHg MV Mean 0 mmHg MV Area 0 cm COMMENTS: LIMITED STUDY (2-D,COLOR,DOPPLER) COMPLETE ECHO DONE ON 03/26/19 Price Clerk: 1 SALONI LOCKETTOE Transport Coordinator: 3 Dr. Durand TAPE# PACS Pericardial Effusion N DATE OF SERVICE: 04/12/2019 PROCEDURE: 2D, color flow Grossly LVH appears present. LV internal dimension is normal. Wall motion is normal. EF is greater than or equal to 55%. Aortic valve is tricuspid with good valve excursion, trivial AI. Left atrium grossly appears normal. Mitral valve again has good valve excursion. No more than mild MR. Right-sided chamber is grossly normal. Mild TR. ECHOCARDIOGRAM REPORT [id number] EDGARDO ANTHONY TRANSINT:[id number] Voice Confirmation ID: [id number] DOCUMENT ID: [id number] EVA DIETRICH MD at 0924 CC: [id number] DICTATION DATE: 04/12/19 1015 PANTS PRESSER AUTOMATIC: 04/12/19 1126 ADM IN [address] [id number] [place] [address]
--- NOTE | 2019-04-13 15:48 | NUR ---
I have reviewed this patient and I concur with the Shift Assessment completed by the Licensed Practical Nurse today this shift.
--- NOTE | 2019-04-13 17:08 | NUR ---
WITHOUT CHANGES OR DISTRESS NOTED AT THIS TIME. DENIES NEEDS
--- NOTE | 2019-04-13 19:51 | NUR ---
RECEIVED REPORT, WILL ASSUME CARE OF PT, WATCHING TV, DENIES ANY NEEDS AT THIS TIME, BED IS LOW, SRX2, CALL LIGHT IN REACH, WILL CONTINUE PLAN OF CARE
[2019-04-14] VITALS: BP 134/77
[2019-04-14 04:00] VITALS: BP 139/69
--- NOTE | 2019-04-14 04:45 | NUR ---
I have reviewed this patient and I concur with the Shift Assessment completed by the Licensed Practical Nurse today this shift.
[2019-04-14 04:46] LABS: BASOPHILS 0.2 % (0-2); HEMATOCRIT 29.1 % (42.0-54.0); HEMOGLOBIN 9.8 g/dL (13.5-17.5); IMMATURE GRANULOCYTES 0.9 % (0-5); LYMPHOCYTES 37.9 % (15-50); MCH 30.7 pg (26.0-34.0); MCHC 33.7 g/dL (31.0-37.0); MCV 91.2 fL (80.0-100.0); MEAN PLATELET VOLUME 10.9 fL (7.4-10.4); MONOCYTES 12.8 % (2-11); NEUTROPHILS 46.2 % (40-80); PLATELET COUNT 193 10x3/uL (130-400); RBC 3.19 10x6/uL (4.20-6.10); RDW 14.9 % (11.5-14.5); WBC 5.4 10x3/uL (4.8-10.8)
[2019-04-14 04:58] LABS: CALCIUM 7.7 mg/dL (8.5-10.1); CARBON DIOXIDE 25.8 mmol/L (21.0-32.0); CREATININE - SERUM 1.3 mg/dL (0.6-1.3)
[2019-04-14 05:04] LABS: POTASSIUM - SERUM 3.8 mmol/L (3.5-5.1)
--- NOTE | 2019-04-14 07:04 | NUR ---
PT ASLEEP, RESTING PEACEFULLY. DID NOT WAKE I ENTERED. BREATHS EVEN, REGULAR, UNLABORED. NO SIGNS OR SYMPTOMS OF ACUTE DISTRESS NOTED AT THIS TIME. NO FAMILY AT BEDSIDE. CL IN REACH, SRX2.
[2019-04-14 08:39] VITALS: BP 157/69
--- NOTE | 2019-04-14 09:26 | NUR ---
PT C/O RECIEIVING ALL HIS PILLS AT THE SAME TIME (HE TAKES 3), STATING IT MAKES HIM NAUSEOUS. REQUESTED WE BREAK UP THE TIMES WE GIVE THE PILLS FROM NOW ON. WILL PASS ON.
--- NOTE | 2019-04-14 10:02 | NUR ---
SL PTS IV AT THIS TIME. BANNANA BAG NOT YET AVALIABLE FROM PHARMACY. CALLED PHARMACY THEY WILL BRING IT.
[2019-04-14] MEDS ORDERED: DIOVAN40 MG PO (10:18)
[2019-04-14] MEDS ORDERED: BUMETANIDE0.5 MG PO (10:19)
[2019-04-14] MEDS ORDERED: K-TAB10 MEQ PO (10:20)
--- NOTE | 2019-04-14 13:24 | NUR ---
PT ESCORTED OUT VIA WHEELCAHIR TO SON'S POV.
--- NOTE | 2019-04-14 17:04 | MORECARE ---
CASE MANAGEMENT DISCHARGE SUMMARY PATIENT: EDGARDO ANTHONY UNIT: [id number] ADM DATE: 04/11/19 AGE: 68 : [birth year] SEX: M ROOM/BED: D.5714 AUTHOR: HILARY,DOC PHYSICIAN: REFERRING PHYSICIAN: MICHELE BISHOP MD DATE OF SERVICE: 04/14/19 Discharge Plan Patient Name: EDGARDO ANTHONY Facility: [facility]:[place] : 1950 Planned Disposition: Home Anticipated Discharge Date: 04/14/19 Discharge Date: 04/14/2019 Expected LOS: 3 Initial Reviewer: [email or web address] Initial Review Date: 04/11/2019 Generated: 04/14/19 6:03 pm Comments DCP- Discharge Planning Updated by [email or web address]: Jeff Mejía on 04/14/19 4:[address] Patient Name: EDGARDO ANTHONY Admission Status: ER Accout number: [id number] Admission Date: 04-11-2019 : 1950 Admission Diagnosis:SYNCOPE AND COLLAPSE Attending: MICHELE BISHOP Current LOS: 3 Anticipated DC Date: 04-14-2019 Planned Disposition: Home Primary Insurance: MEDICARE A & B Discharge Planning Comments: CM MET WITH PT IN ROOM TO DISCUSS DISCHARGE PLANNING AND NEEDS. PT REPORTS LIVING AT HOME INDEPENDENTLY WITH HIS . PT HAS NO MEDICAL EQUIPMENT AND NO OUTSIDE SERVICES ASSISTING IN THE HOME. CM DISCUSSED AVAILABILITY OF HOME HEALTH, REHAB SERVICES AND MEDICAL EQUIPMENT. PT DENIES DISCHARGE NEEDS, REPORTS HIS SON IN LAW WILL PICK HIM UP FOR DISCHARGE HOME. CM EXPLAINED THAT HOME HEALTH HAD BEEN ARRANGED WITH [facility] AFTER PT LEFT REHAB AND ASKED PT TO CONSIDER HAVING THEM COME OUT. PT DECLINED. CM EXPLAINED HOW HOMEHEALTH COULD ASSIST WITH MONITORING HEALTH AND IDENTIFYING PROBLEMS EARLY AND ALSO AVAILABILITY OF THERAPY SERVICES AT HOME. PT DECLINED. IMPORTANT MESSAGE FROM MEDICARE PROVIDED AND EXPLAINED. Urban Forester: Jeff Mejía DCP- Discharge Planning Updated by [id number]: Jeff Mejía on 04/11/19 1:[address] Patient Name: EDGARDO ANTHONY Admission Status: ER Accout number: [id number] Admission Date: 04-11-2019 : 1950 Admission Diagnosis:SYNCOPE AND COLLAPSE Attending: MICHELE BISHOP Current LOS: 1 Anticipated DC Date: Planned Disposition: Home with Home Health Primary Insurance: MEDICARE A & B PLANNED EXTERNAL PROVIDER: Maya's Mom COUNTS INCLUDE 234 BEDS AT THE [facility] Discharge Planning Comments: CM RECEIVED CALL FROM Maya's Mom COUNTS INCLUDE 234 BEDS AT THE [facility], . SPOKE TO SABINO WHO INFORMED CM THAT THEY ATTEMPTED TO ADMIT PT FOR HOME HEALTH BUT WERE INFORMED PT IS IN THE HOSPTIAL. THEY ARE WILLING TO ACCEPT PT FOR HOME HEALTH AT DISCHARGE AND WILL REQUIRE NEW HOME HEALTH ORDER. CM TO ASSESS PT FOR DISCHARGE NEEDS SOON POSSIBLE. PT WILL REQUIRE NEW HOME HEALTH ORDER TO BE FAXED TO Maya's Mom COUNTS INCLUDE 234 BEDS AT THE [facility] AT [phone] FOR HOME HEALTH TO ADMIT PT. Urban Forester: Jeff Mejía DCPIA - Discharge Planning Initial Assessment Updated by [id number]: Jeff Mejía on 04/14/19 4:59 pm * Is the patient Alert and Oriented? Yes * How many steps to enter\exit or inside your home? 1-O / 3-I * PCP DR. BISHOP * Pharm[facility] * Preadmission Environment Home with Family * ADLs Independent * Equipment None * Other Equipment NO MEDICAL EQUIPMENT PROVDIER PREFERENCE * List name and contact numbers for known caregivers / representatives who currently or will assist patient after discharge: OMERO ANTHONY, SPOUSE, * Verbal permission to speak to the caregivers and representatives has been obtained from the patient. N/A * Community resources currently utilized None * Please name any agencies selected above. NONE * Additional services required to return to the preadmission environment? No * Can the patient safely return to the preadmission environment? Yes * Has this patient been hospitalized within the prior 30 days at any hospital? Yes Coverage Notice Reviewer: [id number] - Jeff Mejía Notice Issued Date-Time: 04/14/2019 11:45 Notice Type: IM Discharge Notice Notice Delivered To: Patient Relationship to Patient: Floatlight Powder Mixer Name: Delivery Method: HAND - Hand Delivered Mona Days: Prior Verbal Notification: Recipient Understood Notice: Yes Recipient Signature: Yes Med Rec Note Co-signed by Attending: Coverage Notice Comment: Last DP export: 04/11/19 1:42 p Patient Name: EDGARDO ANTHONY Page [id number] at 1704 All edits/amendments must be made on the electronic document DICTATION DATE: 08/19/19 1703 REPEAT PHOTOCOMPOSING MACHINE OPERATOR: ROSALINDA 04/14/191702 RPT#: [id number] DC DATE:04/14/19 STATUS: DIS IN [facility] [address] [place] [address] END OF REPORT
== END 2019-04-14 13:26 | disposition home or self-care (01) | DRG 312 ==
LOC: D.ER 02:32 → D.M2 03:22
PROVIDERS: Family Medicine; Legal Medicine; ADMIT Family Medicine; ATTEND Family Medicine
DX: I95.1 Orthostatic hypotension (principal); N17.9 Acute kidney failure, unspecified; I13.0 Hypertensive heart and chronic kidney disease with heart failure and stage 1 through stage 4 chronic kidney disease, or unspecified chronic kidney disease; R55 Syncope and collapse; W19.XXXA Unspecified fall, initial encounter; Z74.09 Other reduced mobility; I48.2 Chronic atrial fibrillation; J44.9 Chronic obstructive pulmonary disease, unspecified; N18.3 Chronic kidney disease, stage 3 (moderate); E83.42 Hypomagnesemia; D50.9 Iron deficiency anemia, unspecified; M19.91 Primary osteoarthritis, unspecified site; K21.9 Gastro-esophageal reflux disease without esophagitis; Z72.0 Tobacco use; I50.9 Heart failure, unspecified

== ENCOUNTER 2019-04-30 11:19 | Emergency (ER) | payer MEDICARE, OTHER ==
[~2019-04-30] VITALS: Ht 188 cm; Wt 136.4 kg
[~2019-04-30 11:19] MED LIST changes: +BUMETANIDE0.5 MG PO; +DIOVAN40 MG PO
[2019-04-30 11:24] VITALS: Ht 188 cm; Wt 136.4 kg
[2019-04-30] MEDS ORDERED: HYDROCODONE-A1 UDTA2 PO (13:53)
[2019-04-30 14:21] VITALS: BP 158/77
== END 2019-04-30 14:15 | disposition home or self-care (01) ==
LOC: D.ER 11:19
DX: R07.81 Pleurodynia (principal)

== ENCOUNTER → 2019-05-08 13:32 | Outpatient (CLI) | payer MEDICARE, OTHER ==
[2019-04-30 11:24] VITALS: BMI 38.6
[~2019-05-08 13:32] MED LIST changes: +HYDROCODONE-A1 UDTA2 PO
[2019-05-08 14:20] LABS: BASOPHILS 0.2 % (0-2); EOSINOPHILS 0.2 % (0-7); HEMOGLOBIN 11.2 g/dL (13.5-17.5); IMMATURE GRANULOCYTES 0.4 % (0-5); LYMPHOCYTES 26.3 % (15-50); MCH 30.6 pg (26.0-34.0); MCHC 33.9 g/dL (31.0-37.0); MCV 90.2 fL (80.0-100.0); MEAN PLATELET VOLUME 10.1 fL (7.4-10.4); MONOCYTES 10.3 % (2-11); NEUTROPHILS 62.6 % (40-80); RBC 3.66 10x6/uL (4.20-6.10); RDW 15.6 % (11.5-14.5); WBC 8.2 10x3/uL (4.8-10.8)
[2019-05-08 14:21] LABS: PLATELET COUNT 104 10x3/uL (130-400)
[2019-05-08 14:32] LABS: HELICOBACTER PYLORI IGG POSITIVE (NEGATIVE)
[2019-05-08 14:38] LABS: ALBUMIN 2.2 g/dL (3.4-5.0); ANION GAP 13.1 mmol/L (8-16); BILIRUBIN - TOTAL 1.52 mg/dL (0.2-1.3); CALCIUM 7.9 mg/dL (8.5-10.1); CARBON DIOXIDE 25.2 mmol/L (21.0-32.0); CREATININE - SERUM 1.5 mg/dL (0.6-1.3); DIGOXIN 0.23 ng/mL (0.90-2.00); POTASSIUM - SERUM 3.3 mmol/L (3.5-5.1); PROTEIN - SERUM 6.1 g/dL (6.4-8.2)
== END | disposition home or self-care (01) ==
LOC: D.LAB 13:32
PROVIDERS: ATTEND Family Medicine
DX: R11.2 Nausea with vomiting, unspecified (principal); I10 Essential (primary) hypertension; I49.9 Cardiac arrhythmia, unspecified; R19.5 Other fecal abnormalities

== ENCOUNTER 2019-06-30 10:29 | Emergency (ER) | payer MEDICARE, OTHER ==
[~2019-06-30] VITALS: Ht 188 cm; Wt 118.2 kg
[2019-06-30 10:33] VITALS: Ht 188 cm; Wt 118.2 kg
[2019-06-30] MEDS ORDERED: LANOXIN125 MCG PO (10:36)
[2019-06-30] MEDS ORDERED: METOPROLOL TART50 MG PO (10:36)
[2019-06-30 11:32] LABS: ANION GAP 11.5 mmol/L (8-16); CALCIUM 8.8 mg/dL (8.5-10.1); CARBON DIOXIDE 22.3 mmol/L (21.0-32.0); CREATININE - SERUM 1.4 mg/dL (0.6-1.3); POTASSIUM - SERUM 3.8 mmol/L (3.5-5.1)
[2019-06-30 11:34] LABS: BASOPHILS 0.4 % (0-2); EOSINOPHILS 1.6 % (0-7); HEMATOCRIT 38.7 % (42.0-54.0); HEMOGLOBIN 12.9 g/dL (13.5-17.5); IMMATURE GRANULOCYTES 1.1 % (0-5); LYMPHOCYTES 29.5 % (15-50); MCH 30.2 pg (26.0-34.0); MCHC 33.3 g/dL (31.0-37.0); MCV 90.6 fL (80.0-100.0); MEAN PLATELET VOLUME 10.6 fL (7.4-10.4); MONOCYTES 13.2 % (2-11); NEUTROPHILS 54.2 % (40-80); RBC 4.27 10x6/uL (4.20-6.10); RDW 16.9 % (11.5-14.5)
[2019-06-30 11:40] LABS: PLATELET COUNT 153 10x3/uL (130-400)
[2019-06-30 11:41] LABS: ALBUMIN 2.6 g/dL (3.4-5.0); BILIRUBIN - TOTAL 1.22 mg/dL (0.2-1.3); DIGOXIN 0.55 ng/mL (0.90-2.00); TROPONIN-I 0.031 ng/mL (0.000-0.060)
[2019-06-30 12:06] LABS: APPEARANCE CLEAR (CLEAR); COLOR YELLOW (YELLOW)
[2019-06-30 12:07] LABS: BILIRUBIN NEGATIVE (NEGATIVE); GLUCOSE NEGATIVE (NEGATIVE); KETONE NEGATIVE (NEGATIVE); NITRITE NEGATIVE (NEGATIVE); PROTEIN TRACE mg/dL (NEGATIVE); SPECIFIC GRAVITY 1.015 (1.005-1.020); UROBILINOGEN NORMAL (NORMAL)
[2019-06-30 12:10] LABS: BACTERIA FEW /hpf (NEGATIVE); EPITHELIAL CELLS 0-5 /hpf (0-5); MUCUS <1+ /lpf (NONE SEEN); RED CELLS - URINE 0-5 /hpf (0-5); WHITE CELLS - URINE OCC /hpf (NEGATIVE)
[2019-06-30 12:11] LABS: EPITHELIAL CELL CAST RARE /lpf (NONE SEEN); HYALINE CAST RARE /lpf (NONE SEEN)
[2019-06-30 16:10] VITALS: BP 143/74
[2019-06-30 18:49] LABS: HELICOBACTER PYLORI IGG POSITIVE (NEGATIVE)
== END 2019-06-30 16:11 | disposition home or self-care (01) ==
LOC: D.ER 10:29
PROVIDERS: Emergency Medicine
DX: K27.9 Peptic ulcer, site unspecified, unspecified as acute or chronic, without hemorrhage or perforation (principal)

== ENCOUNTER 2020-12-08 21:43 | Inpatient (IN) | payer MEDICARE, OTHER ==
[~2020-12-08] VITALS: Ht 193 cm; Wt 133.4 kg
--- NOTE | 2020-12-08 22:18 | NUR ---
RT CALLED FOR ABG AT THIS TIME.
[2020-12-08 22:31] LABS: BASOPHILS 0.9 % (0-2); EOSINOPHILS 4.2 % (0-7); HEMATOCRIT 42.3 % (42.0-54.0); HEMOGLOBIN 14.5 g/dL (13.5-17.5); IMMATURE GRANULOCYTES 0.4 % (0-5); LYMPHOCYTE ABS# 2.59 10x3/uL (1.32-3.57); MCH 30.7 pg (26.0-34.0); MCHC 34.3 g/dL (31.0-37.0); MCV 89.4 fL (80.0-100.0); MEAN PLATELET VOLUME 11.9 fL (7.4-10.4); MONOCYTES 12.9 % (2-11); NEUTROPHIL ABS# 3.62 10x3/uL (1.78-5.38); NEUTROPHILS 47.6 % (40-80); PLATELET COUNT 136 10x3/uL (130-400); RBC 4.73 10x6/uL (4.20-6.10); RDW 14.8 % (11.5-14.5); WBC 7.6 10x3/uL (4.8-10.8)
[2020-12-08] MEDS ORDERED: DIOVAN320 MG PO (22:43)
[2020-12-08] MEDS ORDERED: COREG25 MG PO (22:43)
[2020-12-08] MEDS ORDERED: CLONIDINE HCL0.1 MG PO (22:44)
[2020-12-08] MEDS ORDERED: BUMEX2 MG PO (22:44)
[2020-12-08] MEDS ORDERED: JANTOVEN6 MG PO (22:44)
[2020-12-08 22:45] LABS: APTT 38.7 SECONDS (22.8-39.4); INR 2.23 (0.85-1.17); PROTIME 22.9 SECONDS (11.6-15.0)
[2020-12-08 22:46] LABS: CALC OSMOLALITY 291 mosm/kg (275-300); CALCIUM 8.2 mg/dL (8.5-10.1); CARBON DIOXIDE 36.1 mmol/L (21.0-32.0); CHLORIDE - SERUM 103 mmol/L (98-107); CREATININE - SERUM 2.3 mg/dL (0.6-1.3); GLUCOSE 114 mg/dL (74-106); POTASSIUM - SERUM 3.4 mmol/L (3.5-5.1); SODIUM 144 mmol/L (136-145); UREA NITROGEN 24 mg/dL (7-18); eGFR NON AFRICAN AMERICAN 30 mL/min (90-120)
[2020-12-08 23:06] LABS: ALBUMIN 2.2 g/dL (3.4-5.0); ALKALINE PHOSPHATASE 143 U/L (30-120); ALT (SGPT) 46 U/L (10-68); BILIRUBIN - TOTAL 1.31 mg/dL (0.2-1.3); CKMB 2.4 U/L (0.0-3.6); CREATINE KINASE 717 UL (21-232); DIGOXIN 1.16 ng/mL (0.90-2.00); PRO BNP 1948 pg/mL (0-125); PROTEIN - SERUM 6.1 g/dL (6.4-8.2)
[2020-12-08 23:10] VITALS: BP 168/58
[2020-12-08 23:18] LABS: TROPONIN-I 0.098 ng/mL (0.000-0.060)
[2020-12-09] MEDS ORDERED: AMBIEN10 MG PO (00:49)
[2020-12-09 02:42] VITALS: BP 212/86; BMI 35.7
--- NOTE | 2020-12-09 04:12 | NUR ---
ADMITTED FROM ER FOR WEAKNESS & BRADYCARDIA. PT WAS STARTED ON COREG 25MGBID ON 12/07/20. STATES THAT HE HASN'T FELT WELL SINCE TAKING IT. CURRENT RATE IS UPPER 30-50 IN A-FIB. O2 2L/NC D/T SOB. MED LIST REVIEWED & UPDATED. DENIES ANY C/O AT PRESENT. WILL CONTINUE TO MONITOR. DENIES ANY CHEST PAIN.
[2020-12-09 04:21] LABS: CREATINE KINASE 549 UL (21-232)
[2020-12-09 04:26] LABS: TROPONIN-I 0.092 ng/mL (0.000-0.060)
[2020-12-09 04:31] VITALS: BP 150/53
--- NOTE | 2020-12-09 06:19 | NUR ---
HR REMAINS IN UPPER 30-40'S. RESTING QUIETLY IN BED. NO DISTRESS NOTED. WILL CONTINUE TO MONITOR.
[2020-12-09 06:35] LABS: BASOPHILS 0.7 % (0-2); EOSINOPHILS 3.7 % (0-7); HEMATOCRIT 38.8 % (42.0-54.0); HEMOGLOBIN 13.3 g/dL (13.5-17.5); IMMATURE GRANULOCYTES 0.3 % (0-5); LYMPHOCYTE ABS# 2.16 10x3/uL (1.32-3.57); LYMPHOCYTES 36.4 % (15-50); MCH 30.6 pg (26.0-34.0); MCHC 34.3 g/dL (31.0-37.0); MCV 89.4 fL (80.0-100.0); MEAN PLATELET VOLUME 12.1 fL (7.4-10.4); MONOCYTES 14.5 % (2-11); NEUTROPHIL ABS# 2.64 10x3/uL (1.78-5.38); NEUTROPHILS 44.4 % (40-80); PLATELET COUNT 116 10x3/uL (130-400); RBC 4.34 10x6/uL (4.20-6.10); RDW 14.9 % (11.5-14.5); WBC 5.9 10x3/uL (4.8-10.8)
[2020-12-09 06:54] LABS: MAGNESIUM - SERUM 1.1 mg/dL (1.8-2.4)
--- NOTE | 2020-12-09 07:16 | NUR ---
CALLED DR. BISHOP ABOUT HR SUSTAINING IN THE 30S. HE INSTRUCTED TO CALL CARDIOLOGY BECAUSE THEY HAVE ALREADY BEEN CONSULTED. CALLED [facility] WHO WAS ACQUISITION ANALYST. HE SAID LONG HIS BP IS FINE ITS OKAY FOR HIM TO BE IN THE 30S. PATIENT IS ASYMPTOMATIC LAYING IN BED.
[2020-12-09 09:36] VITALS: BP 149/68
[2020-12-09 10:52] LABS: CKMB 1.8 U/L (0.0-3.6); CREATINE KINASE 537 UL (21-232); TROPONIN-I 0.085 ng/mL (0.000-0.060)
[2020-12-09 15:23] VITALS: BP 153/56
[2020-12-09 17:37] LABS: CKMB 1.8 U/L (0.0-3.6); CREATINE KINASE 562 UL (21-232)
[2020-12-09 17:39] LABS: TROPONIN-I 0.092 ng/mL (0.000-0.060)
[2020-12-09 20:07] VITALS: BP 185/65
[2020-12-10 03:41] VITALS: BP 169/74
--- NOTE | 2020-12-10 04:24 | NUR ---
I have reviewed this patient and I concur with the Shift Assessment completed by the Licensed Practical Nurse today this shift.
[2020-12-10 07:42] LABS: ALBUMIN 1.9 g/dL (3.4-5.0); ANION GAP 7.8 mmol/L (8-16); BILIRUBIN - TOTAL 1.34 mg/dL (0.2-1.3); CALCIUM 7.8 mg/dL (8.5-10.1); CARBON DIOXIDE 33.2 mmol/L (21.0-32.0); CREATININE - SERUM 2.3 mg/dL (0.6-1.3); PHOSPHOROUS 2.9 mg/dL (2.5-4.9); PROTEIN - SERUM 5.1 g/dL (6.4-8.2)
[2020-12-10 07:44] LABS: MAGNESIUM - SERUM 1.4 mg/dL (1.8-2.4)
[2020-12-10 07:57] LABS: INR 2.74 (0.85-1.17)
[2020-12-10 08:14] VITALS: BP 164/68
[2020-12-10 08:34] LABS: BASOPHILS 0.9 % (0-2); EOSINOPHILS 4.3 % (0-7); HEMATOCRIT 38.2 % (42.0-54.0); HEMOGLOBIN 13.1 g/dL (13.5-17.5); IMMATURE GRANULOCYTES 0.2 % (0-5); LYMPHOCYTES 44.8 % (15-50); MCHC 34.3 g/dL (31.0-37.0); MCV 90.3 fL (80.0-100.0); MEAN PLATELET VOLUME 12.3 fL (7.4-10.4); MONOCYTES 11.7 % (2-11); NEUTROPHIL ABS# 2.47 10x3/uL (1.78-5.38); NEUTROPHILS 38.1 % (40-80); PLATELET COUNT 127 10x3/uL (130-400); RBC 4.23 10x6/uL (4.20-6.10); RDW 15.2 % (11.5-14.5); WBC 6.5 10x3/uL (4.8-10.8)
[2020-12-10 10:30] LABS: COMPLEMENT C4 15.2 mg/dL (17.4-52.2)
[2020-12-10 10:52] LABS: T4 THYROXIN - FREE 1.1 ng/dL (0.76-1.46); THYROID STIMULATING HORMONE 1.13 uIU/mL (0.36-3.74)
[2020-12-10 11:49] VITALS: BP 176/77
[2020-12-10 14:31] LABS: CREATININE - URINE 102.9 mg/dL (30-125); PROTEIN - URINE 84.3 mg/dL (0.0-11.9)
[2020-12-10 14:40] LABS: BILIRUBIN 1+ (NEGATIVE); KETONE NEGATIVE (NEGATIVE); NITRITE NEGATIVE (NEGATIVE); UROBILINOGEN 4 mg/dL (< 2)
[2020-12-10 14:43] LABS: WHITE CELLS - URINE 0-5 HPF (0-1)
[2020-12-10 14:45] LABS: BACTERIA T HPF (NONE SEEN); SQUAMOUS EPITHELIAL NONE SEEN HPF (0-4)
[2020-12-10 15:51] VITALS: BP 131/71
--- NOTE | 2020-12-10 17:29 | NUR ---
RESTING IN BED. NO NAUSEA AT THIS TIME. HAS BEEN NAUSEATED TODAY. DENIES ANY NEEDS RIGHT NOW. HEART RATE IMPROVING. WILL CONTINUE POC AND SAFETY PRECAUTIONS.
--- NOTE | 2020-12-10 19:45 | NUR ---
RECEIVED REPORT, WILL ASSUME CARE OF PT, DENIES ANY NEEDS AT THIS TIME, BED IS LOW, SRX2, CALL LIGHT IN REACH, WILL CONTINUE PLAN OF CARE
--- NOTE | 2020-12-10 20:43 | NUR ---
REFUSING HYDRALAZINE, HE THINKS IT IS MAKING HIM SICK
[2020-12-10 20:54] VITALS: BP 136/41
[2020-12-11 01:56] VITALS: BP 184/84
--- NOTE | 2020-12-11 02:31 | NUR ---
I have reviewed this patient and I concur with the Shift Assessment completed by the Licensed Practical Nurse today this shift.
[2020-12-11 06:06] LABS: BASOPHILS 0.5 % (0-2); EOSINOPHILS 3.7 % (0-7); HEMATOCRIT 38.6 % (42.0-54.0); HEMOGLOBIN 13.1 g/dL (13.5-17.5); IMMATURE GRANULOCYTES 0.3 % (0-5); LYMPHOCYTE ABS# 2.68 10x3/uL (1.32-3.57); LYMPHOCYTES 43.6 % (15-50); MCH 30.6 pg (26.0-34.0); MCHC 33.9 g/dL (31.0-37.0); MCV 90.2 fL (80.0-100.0); MEAN PLATELET VOLUME 11.7 fL (7.4-10.4); MONOCYTES 12.4 % (2-11); NEUTROPHIL ABS# 2.43 10x3/uL (1.78-5.38); NEUTROPHILS 39.5 % (40-80); PLATELET COUNT 124 10x3/uL (130-400); RBC 4.28 10x6/uL (4.20-6.10); RDW 15.5 % (11.5-14.5); WBC 6.2 10x3/uL (4.8-10.8)
[2020-12-11 06:27] LABS: ALBUMIN 1.9 g/dL (3.4-5.0); ANION GAP 7.2 mmol/L (8-16); BILIRUBIN - TOTAL 1.34 mg/dL (0.2-1.3); CALCIUM 8.2 mg/dL (8.5-10.1); CARBON DIOXIDE 32.8 mmol/L (21.0-32.0); CHOL - HDL RATIO 7.4 ratio (2.3-4.9); CREATININE - SERUM 2.6 mg/dL (0.6-1.3); LDL-HDL RATIO 5.5 ratio (1.5-3.5); PROTEIN - SERUM 5.2 g/dL (6.4-8.2)
[2020-12-11 06:43] VITALS: BP 156/63
--- NOTE | 2020-12-11 08:13 | NUR ---
PT RECEIVED AWAKE AND ALERT IN BED. STATES FEELING BETTER BUT WORRIED ABOUT NAUSEA AGAIN WITH MEDS AND BREAKFAST. K+ GIVEN FOR REPLACEMENT.
[2020-12-11 09:00] VITALS: BP 170/72
[2020-12-11 12:35] VITALS: BP 180/69
--- NOTE | 2020-12-11 15:41 | NUR ---
PT NOT HAVING ANY LUCK GETTING ORAL K+ PILLS DOWN. WILL TRY POWDER OR GO WITH IV IF NOT ABLE TO TAKE.
[2020-12-11 16:58] VITALS: BP 192/75
[2020-12-11 18:08] LABS: ANA REFLEX - DIRECT Negative (Negative)
--- NOTE | 2020-12-11 19:45 | NUR ---
K+3.0, PT UNABLE TO KEEP PO DOWN, SO I STARTED IV K+, EXPLAIN BP IS UP, NEEDS TO TAKE BP MEDS
[2020-12-11 21:38] VITALS: BP 209/93
[2020-12-12 01:56] VITALS: BP 201/72
--- NOTE | 2020-12-12 03:08 | NUR ---
I have reviewed this patient and I concur with the Shift Assessment completed by the Licensed Practical Nurse today this shift.
[2020-12-12 05:03] LABS: INR 2.83 (0.85-1.17); PROTIME 27.7 SECONDS (11.6-15.0)
[2020-12-12 05:48] VITALS: BP 181/82
--- NOTE | 2020-12-12 06:26 | NUR ---
PT TOOK HIS OWN CLONDINE
--- NOTE | 2020-12-12 07:29 | NUR ---
AM ROUNDS- PT RESTING COMFORTABLY IN BED, A/O X4, RESP EVEN BUT A LITTLE SHALLOW ON 2L NC. NEW BAG OF K RIDER HUNG AT THIS TIME. TO INFUSE TO RT AC. SB-55. PT DENIES ANY NEEDS AT THIS TIME. CALL LIGHT IN REACH, WILL CONTINUE PLAN OF CARE.
[2020-12-12 09:26] LABS: ALBUMIN 2.2 g/dL (3.4-5.0); ANION GAP 7.1 mmol/L (8-16); BILIRUBIN - TOTAL 1.26 mg/dL (0.2-1.3); CALCIUM 8.4 mg/dL (8.5-10.1); CARBON DIOXIDE 34.2 mmol/L (21.0-32.0); CREATININE - SERUM 2.2 mg/dL (0.6-1.3); POTASSIUM - SERUM 3.3 mmol/L (3.5-5.1); PROTEIN - SERUM 5.3 g/dL (6.4-8.2)
[2020-12-12 13:03] VITALS: BP 155/65
--- NOTE | 2020-12-12 16:22 | NUR ---
4MG OF ZOFRAN GIVEN FOR NAUSEA, LAST K RIDER HUNG AT THIS TIME. TO HAVE Alicia RECHECK AT 1700. PT STATES THAT HE JUST DOES NOT FEEL GOOD TODAY, UNABLE TO EAT HIS FOOD. ALL NEEDS MET, CALL LIGHT IN REACH.
[2020-12-12 17:08] VITALS: BP 175/59
[2020-12-12 19:13] VITALS: BP 162/69
--- NOTE | 2020-12-12 19:37 | NUR ---
RECEIVED REPORT, WILL ASSUME CARE OF PT, DENIES ANY NEEDS AT THIS TIME,VISITING WITH FAMILY, BED IS LOW, SRX2, CALL LIGHT IN REACH, WILL CONTINUE PLAN OF CARE
[2020-12-12 23:22] VITALS: BP 155/64
--- NOTE | 2020-12-13 04:01 | NUR ---
IV IN L. AC IS LEAKING, REFUSING AT THIS TIME TO BE RESITED, STATES HE DOESNT NEED THE FLUIDS NOW
[2020-12-13 04:56] VITALS: BP 196/76
[2020-12-13 06:32] LABS: BASOPHILS 0.8 % (0-2); EOSINOPHILS 3.4 % (0-7); HEMATOCRIT 36.8 % (42.0-54.0); HEMOGLOBIN 12.2 g/dL (13.5-17.5); IMMATURE GRANULOCYTES 0.6 % (0-5); LYMPHOCYTE ABS# 1.15 10x3/uL (1.32-3.57); LYMPHOCYTES 21.9 % (15-50); MCH 30.3 pg (26.0-34.0); MCHC 33.2 g/dL (31.0-37.0); MCV 91.5 fL (80.0-100.0); MEAN PLATELET VOLUME 11.4 fL (7.4-10.4); MONOCYTES 15.6 % (2-11); NEUTROPHIL ABS# 3.03 10x3/uL (1.78-5.38); NEUTROPHILS 57.7 % (40-80); PLATELET COUNT 101 10x3/uL (130-400); RBC 4.02 10x6/uL (4.20-6.10); RDW 15.1 % (11.5-14.5); WBC 5.3 10x3/uL (4.8-10.8)
[2020-12-13 06:40] LABS: INR 2.11 (0.85-1.17)
[2020-12-13 06:43] LABS: ALBUMIN 2.5 g/dL (3.4-5.0); ANION GAP 9.7 mmol/L (8-16); BILIRUBIN - TOTAL 1.69 mg/dL (0.2-1.3); CALCIUM 8.4 mg/dL (8.5-10.1); CARBON DIOXIDE 31.6 mmol/L (21.0-32.0); MAGNESIUM - SERUM 1.5 mg/dL (1.8-2.4); POTASSIUM - SERUM 3.3 mmol/L (3.5-5.1); PROTEIN - SERUM 5.5 g/dL (6.4-8.2)
[2020-12-13 08:29] VITALS: BP 193/89
--- NOTE | 2020-12-13 09:39 | NUR ---
AM MEDS GIVEN AT THIS TIME. ALSO GAVE 40MEQ OF K FOR K OF 3.3, AND 800MG OF MAG FOR MAG OF 1.5. D/C RT AC IV DUE TO LEAKING WHEN FLUSHED. PT REFUSED TO HAVE ANOTHER IV PLACED INFORMED DR. MCCLENDON.CAF-69 ON TELE, PT REFUSES TO WEAR SCDS. ALL NEEDS MET, CALL LIGHT IN REACH. WILL CONTINUE PLAN OF CARE.
[2020-12-13 12:41] VITALS: BP 160/70
[2020-12-13 13:48] VITALS: Ht 193 cm; Wt 133.4 kg
--- NOTE | 2020-12-13 15:23 | NUR ---
CALLED DR. BISHOP AND INFORMED HIM THAT PT IS STILL HAVING NAUSEA/VOMITTING AND IS STILL REFUSING TO HAVE IV STARTED, NEW ORDER TO GIVE PHENERGAN 25MG IM Q4PRN.
--- NOTE | 2020-12-13 15:30 | NUR ---
PT REFUSED TO TAKE BP MEDS, STATED THAT IT JUST MAKES HIM SICK. TRIED TO EXPLAIN TO PT THAT HE NEEDS TO TAKE HIS BP MEDS BECAUSE HIS BP IS HIGH BUT PT STILL REFUSING TO TAKE MEDICATIONS. GAVE 25MG OF PHENERGAN IM FOR NAUSEA.
--- NOTE | 2020-12-13 16:08 | EC ---
PATIENT:EDGARDO ANTHONY DATE OF SERVICE: 12/09/20 SEX: M MEDICAL RECORD: [id number] DATE OF : [birth year] LOCATION:D. D.212 AGE OF PATIENT: 70 ADMISSION DATE: 12/09/20 REFERRING PHYSICIAN: INTERPRETING PHYSICIAN: EVA DIETRICH MD ECHOCARDIOGRAM REPORT ECHO CHARGES 4 ECHO COMPLETE Date: 12/09/20 CLINICAL DIAGNOSIS: SANCHEZ, BRADYCARDIA, SOB ECHOCARDIOGRAPHIC MEASUREMENTS (adult normal given) AC root (d.<3.7cm) 3.3 cm LV Septum d (<1.2 cm> 1.1 cm Valve Excursion 1.9 cm LV Septum (systole) 1.6 cm Left Atria (s.<4.0cm> 5.7 cm LVPW d(<1.2cm) 1.3 cm RV (d.<2.3cm) 3.5 cm LVPW (sytole) 1.7 cm LV diastole(<5.6CM) 5.8 cm MV E-F(>70mm/sec) cm LV systole 4.1 cm LVOT Diameter 2.0 cm MV exc.(>10mm) 2.0 cm Est.ejection fraction (50-75%) % DOPPLER: LVIT cm/sec A 37 cm/sec E 54 cm/sec LA cm/sec RVSP 41 mmHg LVOT 95 cm/sec AOP1/2T m/s Asc. Ao 179 cm/sec RVOT 61 cm/sec RA cm/sec PA 88 cm/sec AV Gradient Peak 12.9 mmHg AV Mean 6.5 mmHg AV Area 2.1 cm MV Gradient Peak 5.9 mmHg MV Mean 1.5 mmHg MV Area cm COMMENTS: Shaper Machine Hand: Maldonado MARSHALL Leaf Conditioner Helper: 3 Dr. Durand TAPE# Pericardial Effusion N DATE OF SERVICE: Adequate 2D, color-flow imaging, spectral Doppler, and M-Mode No LVH. LV internal dimensions are normal. Wall motion is normal. EF is greater than or equal to 55%. Aortic valve is tricuspid. No evidence of stenosis by Doppler interrogation. Left atrium is dilated at 5.7 cm. Mitral valve shows no prolapse. Trace MR. Right side is grossly normal. Mild TR. TRANSINT:[id number] Voice Confirmation ID: [id number] DOCUMENT ID: [id number] ECHOCARDIOGRAM REPORT [id number] ANTHONY,EDWARD R EVA DIETRICH MD at 1608 CC: [id number] DICTATION DATE: 12/10/20 1250 CAPITAL EQUIPMENT SPECIALIST: 12/10/20 1439 ADM IN [id number] [place] [address]
[2020-12-13 17:35] VITALS: BP 194/84
[2020-12-13 20:00] VITALS: BP 186/76
--- NOTE | 2020-12-14 02:34 | NUR ---
2129-- PT DAUGHTER AT BEDSIDE. VOICES CONCERNS OVER NOT KNOWING WHAT THE PLAN IS WITH HER FATHER & WHAT/WHO IS TAKING CARE OF HIM. REVIEWED PHYSICIANS W/ HER. PT RESTING IN BED IV STARTED TO LEFT UPPER ARM X1 ATTEMPT. TOLERATED WELL D5W INFUSING, NOON DOSE OF ALBUMIN STARTED. PT TOOK HS MEDS WITHOUT DIFFICULTY. WILL CONTINUE TO MONITOR
[2020-12-14 06:17] LABS: BASOPHILS 1.1 % (0-2); EOSINOPHILS 5.7 % (0-7); HEMATOCRIT 33.6 % (42.0-54.0); HEMOGLOBIN 11.1 g/dL (13.5-17.5); IMMATURE GRANULOCYTES 0.5 % (0-5); LYMPHOCYTE ABS# 1.73 10x3/uL (1.32-3.57); LYMPHOCYTES 39.2 % (15-50); MCH 30.2 pg (26.0-34.0); MCV 91.3 fL (80.0-100.0); MEAN PLATELET VOLUME 11.7 fL (7.4-10.4); MONOCYTES 16.6 % (2-11); NEUTROPHIL ABS# 1.63 10x3/uL (1.78-5.38); NEUTROPHILS 36.9 % (40-80); PLATELET COUNT 91 10x3/uL (130-400); RBC 3.68 10x6/uL (4.20-6.10); RDW 15.3 % (11.5-14.5); WBC 4.4 10x3/uL (4.8-10.8)
[2020-12-14 06:39] LABS: ALBUMIN 2.8 g/dL (3.4-5.0); ANION GAP 10.9 mmol/L (8-16); BILIRUBIN - TOTAL 1.85 mg/dL (0.2-1.3); CALCIUM 8.6 mg/dL (8.5-10.1); CARBON DIOXIDE 29.4 mmol/L (21.0-32.0); CREATININE - SERUM 1.9 mg/dL (0.6-1.3); POTASSIUM - SERUM 3.3 mmol/L (3.5-5.1); PROTEIN - SERUM 5.4 g/dL (6.4-8.2)
[2020-12-14 07:00] VITALS: BP 163/56
--- NOTE | 2020-12-14 09:07 | NUR ---
AM MEDS GIVEN. PT STATES FRUSTRATION REGARDING THE DOCTORS AND NOT KNOWING A PLAN FOR HIS CARE. NURSE SPOKE WITH PT AND GAVE ENCOURAGEMENT / RESSURANCE. PT STATES UNDERSTANDING AND HE WILL TAKE HIS MEDICATION. PT DENIES ANY PAIN OR NEEDS. CLWR.
[2020-12-14 10:12] LABS: HEP B CORE AB TOTAL Negative (Negative); HEPATITIS C ANTIBODY <0.1 S/CO RAT (0.0-0.9)
[2020-12-14] MEDS ORDERED: ALBUTEROL1.25 MG/3 (10:29)
[2020-12-14 11:30] VITALS: BP 160/59
[2020-12-14 13:18] LABS: PLATELET ESTIMATE DECREASED
--- NOTE | 2020-12-14 14:05 | NUR ---
SPOKE WITH DAUGHTER MILTON REGARDING PT PLAN OF CARE. PT DAUGHTER STATES UNDERSTANDING AND APPRECIATION.
[2020-12-14 15:11] LABS: ANCA - ANTIMYELOPEROXIDASE <9.0 U/mL (0.0-9.0); ANCA - ANTIPROTEINASE 3 <3.5 U/mL (0.0-3.5); ANCA - ATYPICAL <1:20 titer (Neg:<1:20); ANCA - CYTOPLASMIC <1:20 titer (Neg:<1:20); ANCA - PERINUCLEAR <1:20 titer (Neg:<1:20)
[2020-12-14 16:00] VITALS: BP 159/55
[2020-12-14 20:00] VITALS: BP 161/59
[2020-12-15] VITALS: BP 139/61
--- NOTE | 2020-12-15 02:52 | NUR ---
2100--DURING ASSESSMENT PT STATES THAT HE HASN'T BEEN ABLE TO STAY AWAKE TODAY. JUST FEELS GROGGY & C/O BEING "REALLY COLD". CONVINCED PT TO LET ME PUT THE TELEMETRY BACK ON HIM SO WE COULD MONITOR HIS HEART. PT STATES THAT THE OXYGEN DOESN'T EASE HIS BREATHING AT ALL & HE FEELS LIKE HE QUITS BREATHING FREQUENTLY WHILE SLEEPING. WILL CONTINUE TO MONITOR THROUGHOUT THE NIGHT.
[2020-12-15 04:00] VITALS: BP 185/71
[2020-12-15 05:51] LABS: BASOPHILS 0.4 % (0-2); EOSINOPHILS 5.3 % (0-7); HEMATOCRIT 33.3 % (42.0-54.0); IMMATURE GRANULOCYTES 0.2 % (0-5); LYMPHOCYTE ABS# 1.61 10x3/uL (1.32-3.57); LYMPHOCYTES 35.6 % (15-50); MCH 30.3 pg (26.0-34.0); MCV 91.7 fL (80.0-100.0); MEAN PLATELET VOLUME 11.4 fL (7.4-10.4); MONOCYTES 17.7 % (2-11); NEUTROPHIL ABS# 1.84 10x3/uL (1.78-5.38); NEUTROPHILS 40.8 % (40-80); PLATELET COUNT 85 10x3/uL (130-400); RBC 3.63 10x6/uL (4.20-6.10); RDW 15.3 % (11.5-14.5); WBC 4.5 10x3/uL (4.8-10.8)
[2020-12-15 06:21] LABS: ALBUMIN 3.1 g/dL (3.4-5.0); ANION GAP 8.1 mmol/L (8-16); BILIRUBIN - TOTAL 2.01 mg/dL (0.2-1.3); CALCIUM 8.6 mg/dL (8.5-10.1); CARBON DIOXIDE 31.4 mmol/L (21.0-32.0); CREATININE - SERUM 2.2 mg/dL (0.6-1.3); POTASSIUM - SERUM 3.5 mmol/L (3.5-5.1); PROTEIN - SERUM 5.6 g/dL (6.4-8.2)
--- NOTE | 2020-12-15 07:15 | NUR ---
RECEIVE SHIFT REPORT. RESTING IN BED. DENIES ANY NEEDS AT THIS TIME. STATES HE IS SUPPOSED TO GO HOME TODAY. CALL LIGHT IN REACH. WILL CONTINUE POC AND SAFETY PRECAUTIONS.
[2020-12-15 08:17] VITALS: BP 171/63
--- NOTE | 2020-12-15 10:37 | NUR ---
CALLED MARK LOPEZ FOR BP 217/106. RESTARTED VALSARTAN PER ORDERS. SITTING UP IN BED. WILL GIVE MEDICATION AND RECHECK BP IN 30-45 MINUTES.
[2020-12-15] MEDS ORDERED: K-DUR20 MEQ PO (11:02)
[2020-12-15] MEDS ORDERED: PEPCID PO (11:02)
[2020-12-15] MEDS ORDERED: HYDRALAZINE HCL50 MG PO (11:03)
[2020-12-15] MEDS ORDERED: LIPITOR10 MG PO (11:03)
[2020-12-15] MEDS ORDERED: ALDACTONE25 MG PO (11:03)
[2020-12-15] MEDS ORDERED: TIAZAC/CARDIZEM CD PO (11:03)
[2020-12-15 11:40] VITALS: BP 217/106
--- NOTE | 2020-12-15 13:37 | NUR ---
D/C LEFT AC IV, TIP INTACT. DISCHARGE INSTRUCTIONS GIVEN VERBALLY AND HANDOUTS PROVIDED. BP DOWN 147 SBP. DENIES ANY NEEDS. TRANSPORT CALLED TO TAKE PATIENT DOWN.
== END 2020-12-15 13:47 | disposition home or self-care (01) | DRG 291 ==
LOC: D.ER 21:43 → D.M2 23:42 → OBSVTIME 23:43 → D.M2 12-09 19:13
PROVIDERS: Family Medicine; Internal Medicine; ADMIT Family Medicine; ATTEND Family Medicine
DX: I13.0 Hypertensive heart and chronic kidney disease with heart failure and stage 1 through stage 4 chronic kidney disease, or unspecified chronic kidney disease (principal); N17.0 Acute kidney failure with tubular necrosis; I82.503 Chronic embolism and thrombosis of unspecified deep veins of lower extremity, bilateral; I48.11 Longstanding persistent atrial fibrillation; E87.0 Hyperosmolality and hypernatremia; E87.6 Hypokalemia; R00.1 Bradycardia, unspecified; R06.03 Acute respiratory distress; I50.9 Heart failure, unspecified; J44.9 Chronic obstructive pulmonary disease, unspecified; M54.5 Low back pain; G89.29 Other chronic pain; M19.90 Unspecified osteoarthritis, unspecified site; E11.22 Type 2 diabetes mellitus with diabetic chronic kidney disease; N18.30 Chronic kidney disease, stage 3 unspecified; K83.8 Other specified diseases of biliary tract; E66.01 Morbid (severe) obesity due to excess calories; Z68.35 Body mass index [BMI] 35.0-35.9, adult

== ENCOUNTER → 2021-01-26 10:55 | Outpatient (CLI) | payer MEDICARE, OTHER ==
[2020-12-13 13:48] VITALS: BMI 35.8
[~2021-01-26 10:55] MED LIST changes: +ALBUTEROL1.25 MG/3; +ALDACTONE25 MG PO; +CLONIDINE HCL0.1 MG PO; +COREG25 MG PO; +HYDRALAZINE HCL50 MG PO; +JANTOVEN6 MG PO; +LIPITOR10 MG PO; +PEPCID PO; +TIAZAC/CARDIZEM CD PO
== END | disposition home or self-care (01) ==
LOC: D.US 10:55
PROVIDERS: ATTEND Internal Medicine Medical Oncology
DX: D69.59 Other secondary thrombocytopenia (principal); K74.60 Unspecified cirrhosis of liver; R63.4 Abnormal weight loss